=== PATIENT | female | born 1960 | race Caucasian/White ===

== ENCOUNTER → 2017-07-14 14:43 | Outpatient (POV) | payer BC, SELFPAY | PROVIDERS: Visit Provider Internal Medicine | DX: Z00.00 Encounter for general adult medical examination without abnormal findings (principal) ==

== ENCOUNTER → 2017-11-26 15:27 | Outpatient (REF) | payer BC, SELFPAY ==
[2017-11-26 19:09] LABS: Basophils # 0.1 K/mm3 (0-0.2); Basophils % 0.7 % (0.1-2.0); Eosinophils # 0.1 K/mm3 (0.0-0.4); Eosinophils % 1.9 % (0.1-12.0); Hematocrit 45.6 % (37.0-47.0); Hemoglobin 14.9 g/dL (12.2-16.2); Lymphocytes # 2.1 K/mm3 (0.7-4.5); Lymphocytes % 28.7 K/mm3 (10-50); Mean Corpuscular HGB Conc 32.6 g/dL (31.8-35.4); Mean Corpuscular Hemoglobin 30.1 pg (27.0-31.2); Mean Corpuscular Volume 92.3 fl (81-99); Mean Platelet Volume 7.7 fl (7.4-10.4); Monocytes # 0.4 K/mm3 (0.1-1.0); Monocytes % 6.1 % (1.7-9.3); Neutrophils # 4.6 K/mm3 (1.8-7.8); Neutrophils % 62.6 % (37.0-80.0); Platelet Count 254 K/mm3 (142-424); Red Blood Count 4.94 M/mm3 (4.20-5.40); Red Cell Distribution Width 12.8 % (11.5-17.5); White Blood Count 7.3 K/mm3 (4.8-10.8)
[2017-11-26 19:25] LABS: Alanine Aminotransferase 22 U/L (12-78); Albumin Level 3.9 gm/dL (3.4-5.0); Albumin/Globulin Ratio 1.3 (1.1-1.8); Alkaline Phosphatase 78 U/L (46-116); Anion Gap 13.1 mEq/L (5-15); Aspartate Amino Transferase 13 U/L (15-37); Bilirubin,Total 0.3 mg/dL (0.2-1.0); Blood Urea Nitrogen 21 mg/dL (7-18); Calcium 9.8 mg/dL (8.5-10.1); Carbon Dioxide 30 mmol/L (21.0-32.0); Chloride 105 mmol/L (98-107); Creatinine,Serum 0.99 mg/dL (0.55-1.02); Estimated Glomerular Filt Rate 58 ml/min (>60); GFR (African American) 70 ML/MIN (>60); Globulin 3.1 gm/dl (1.3-3.2); Glucose 75 mg/dL (74-106); Potassium 4.1 mmoL/L (3.5-5.1); Sodium 144 mmol/L (136-145)
[2017-11-26 19:26] LABS: C-Reactive Protein < 0.2 mg/L (0.0-0.9)
[2017-11-26 20:45] LABS: Erythrocyte Sedimentation Rate 0 mm/hr (0-30)
[2017-11-28 10:21] LABS: RA Latex Turbid. <10.0 IU/mL (0.0-13.9)
[2017-11-30 15:20] LABS: Anti-Centromere B Antibodies <0.2 AI (0.0-0.9); Anti-Jo-1 <0.2 AI (0.0-0.9); Anti-Smith Antibody 0.3 AI (0.0-0.9); Antichromatin Antibodies <0.2 AI (0.0-0.9); Antiscleroderma-70 Antibodies <0.2 AI (0.0-0.9); RNP Antibodies <0.2 AI (0.0-0.9); Sjogren's Anti-SS-A <0.2 AI (0.0-0.9); Sjogren's Anti-SS-B <0.2 AI (0.0-0.9)
[2017-11-30 17:17] LABS: Anti-DNA (DS) Ab Qn <1 IU/mL (0-9)
[2017-12-01 15:52] LABS: Anti-Cyclic Citrullinated Pept 3 units (0-19)
== END ==
LOC: LAB 15:27
PROVIDERS: PCP Physician Assistant; Visit Provider Physician Assistant
DX: M25.50 Pain in unspecified joint (principal)
CPT/HCPCS: 80053; 85025; 85651; 86140; 86200; 86225; 86235; 86431

== ENCOUNTER → 2017-12-14 14:33 | Outpatient (CLI) | payer BC, SELFPAY ==
--- NOTE | 2017-12-14 14:36 | XR_ITS ---
XR hand LT min 3V, XR hand RT min 3V HISTORY: ITS.REASON: Polyarthralgias ORDERING PHYSICIAN: CHOLE Castellano PATIENT AGE: 57 years COMPARISON: Contralateral study from today. No previous study TECHNIQUE: PA, Oblique and Lateral right and leftHand Left hand 3 view Right hand 3 view same views LEFT HAND No fracture or dislocation. No lytic or blastic change. There is normal mineralization.. Degenerative arthritic changes are seen at the DIP joints. Second & third third finger most notable. Lesser degree fourth and fifth finger. The Most evident arthritic changes seen at the DIP joint of the index and long finger finger where where the developing early hypertrophic changes dorsally most evident.. Slightly fragmented hypertrophic changes most evident at index finger and long finger.. There are also some less evident degenerative changes at PIP joints,-with most notable involvement at fifth finger. Also at the index finger there is minimally fragmented likely hypertrophic feature off proximal ulnar corner base of middle phalanx here at PIP joint index finger.. MCP joints intact. Arthritic changes with slight narrowing and hypertrophic features at IP joint of thumb. Scant hypertrophic features at the first carpal-metacarpal joint. Images are wrist including intact unremarkable. RIGHT HAND No fracture nor dislocation. . Developing degenerative osteophytic changes most evident from the posterior aspect DIP joints of the second and third finger.. At the right long finger, dystrophic & Fragmented hypertrophic changes most evident and pronounced, overlying dorsal aspect head of middle phalanx-these likely palpable overlying posteriorly/ulnar aspect DIP joint long finger.. Less evident fragmented hypertrophic features along the dorsal aspect DIP joint index finger. Only minor mild prominence hypertrophy at the dorsal aspect fourth and fifth finger. . Mild arthritic changes at PIP joint most notable at fourth and fifth finger-small old corticated hypertrophic fragment off the ulnar corner/ base of middle phalanx at each of these fingers with perhaps mild soft tissue prominence overlying over aspect of PIP joint fourth and fifth finger...... The IP joint of thumb demonstrates narrowing and sclerotic changes with irregular marginal osteophyte base both right and left hand. MCP joints intact. Only question scant arthritic changes at carpometacarpal joint. Carpals intact. --IMPRESSION..--- Developing Osteoarthritis pattern hands bilateral.: 1. Degenerative, arthritic changes most evident DIP joints bilaterally. Right hand more than left. ... RIGHT hand. Arthritic changes most evident DIP joints second & third finger. With Irregular dystrophic, hypertrophic bone seen dorsally overlying the IP joint of long finger and to lesser degree index finger. This features likely palpable particularly at the DIP joint of right long finger.. ... LEFT hand with developing similar but slight less pronounced hypertrophic osteoarthritic changes at DIP joint, most evident at index and long fingers ... Developing arthritic changes with marginal osteophyte at IP joint of thumb bilaterally also noted ... Only scant degenerative changes PIP joints 2. no erosive changes. Normal osseous relationships. Bones well mineralized
== END ==
PROVIDERS: PCP Physician Assistant; Visit Provider Physician Assistant
DX: M25.542 Pain in joints of left hand (principal); M25.541 Pain in joints of right hand
CPT/HCPCS: 73130

== ENCOUNTER → 2018-02-16 15:00 | Outpatient (POV) | payer BC, SELFPAY | PROVIDERS: Visit Provider Internal Medicine | DX: Z00.00 Encounter for general adult medical examination without abnormal findings (principal) ==

== ENCOUNTER → 2018-07-12 14:27 | Outpatient (CLI) | payer BC, SELFPAY | PROVIDERS: PCP Emergency Medicine; Visit Provider Physician Assistant | DX: R00.2 Palpitations (principal) | CPT/HCPCS: 93225; 93226 ==

== ENCOUNTER → 2018-11-05 14:15 | Outpatient (CLI) | payer BC, SELFPAY ==
--- NOTE | 2018-11-05 14:31 | CA_ITS ---
APPROVED REPORT EXAM: Comprehensive 2D, Doppler, and color-flow Echocardiogram Tetryl Blender Operator: Callie Talavera RT(R) Ht: 5 ft 4 in Wt: 140lbs BSA: 1.68 BP: 143/89 mmHg Indications: Chest Pain, Palpitations, CAD, Hypertension/HDD 2D Dimensions LVOT 1.90 cm (M/F) 1.5-2.5 M-Mode Dimensions RVDd 2.20 cm (0.9-2.6) LA Diam 2.30 cm (1.9-4.0) LVDd 5.10 cm (3.5-5.7) Ao Diam 2.60 cm (2.0-3.7) LVDs 3.80 cm (3.5-5.7) AV Cusp 1.90 cm (1.5-2.6) IVSd 0.70 cm (0.6-1.1) PWd 0.90 cm (0.6-1.1) EF (Teich) 50.00% FS 25.50% EDV (Teich) 124.00 mL ESV (Teich) 62.00 mL LV Diastology E/A Ratio 1.0 MED E' 6.24 (< 7 cm/sec) E'/MED E' Ratio 11.80 (>14) LAT E' 8.68 (<10 cm/sec) E/LAT E' Ratio 8.50 (>14) Mitral Valve MV E Max Kimani. 73.50 (40-130 cm/s) MV A Velocity 75.00 (40-130 cm/s) E/A Ratio 1.00 Tricuspid Valve TR P. Velocity 220.00 cm/s RAP Estimate 10.00 mmHg RVSP 29.00 mmHg Left Ventricle Left atrium is mildly enlarged, left ventricle is normal size, mild concentric left ventricular hypertrophy, visually estimated ejection fraction 55% with no regional wall motion abnormality. Grade 1 diastolic dysfunction seen without tissue Doppler evidence of raise left atrial pressure. Right Ventricle Right atrium and right ventricular normal size and contractility. Aortic Valve Aortic valve is minimally thickened and fibrosed, there is no aortic stenosis, there is no significant aortic insufficiency seen. Mitral Valve Mitral valve leaflets are minimally thickened, there is no mitral stenosis, there is mild mitral regurgitation. Tricuspid Valve Tricuspid valve is grossly normal, there is no tricuspid stenosis, there is mild tricuspid regurgitation. Calculated right ventricular systolic pressure 29 mmHg. Pulmonic Valve Pulmonic valve is poorly visualized. Great Vessels Aortic root is normal size. Pericardium No significant pericardial effusion noted. Conclusion 1. Mildly enlarged left atrium, normal left ventricular size, mild concentric left ventricular hypertrophy, visually estimated ejection fraction 55% with no regional wall motion abnormality, grade 1 diastolic dysfunction seen without tissue Doppler evidence of raise left atrial pressure. 2. Mild mitral and tricuspid regurgitation, calculated right ventricular systolic pressure is 29 mmHg. 3. No significant pericardial effusion noted. Electronically signed by : Higinio Murdock, 11/05/2018 15:47:35
== END ==
PROVIDERS: PCP Physician Assistant; Visit Provider Physician Assistant
DX: I11.9 Hypertensive heart disease without heart failure (principal); I25.10 Atherosclerotic heart disease of native coronary artery without angina pectoris; R00.2 Palpitations; R06.02 Shortness of breath
CPT/HCPCS: 93306

== ENCOUNTER → 2018-11-23 11:08 | Outpatient (CLI) | payer BC, SELFPAY ==
[2018-11-23 13:14] LABS: Anion Gap 11.4 mEq/L (5-15); Blood Urea Nitrogen 26 mg/dL (7-18); Calcium 10.2 mg/dL (8.5-10.1); Carbon Dioxide 30 mmol/L (21.0-32.0); Chloride 104 mmol/L (98-107); Creatinine,Serum 0.94 mg/dL (0.55-1.02); Estimated Glomerular Filt Rate 62 ml/min (>60); GFR (African American) 75 ML/MIN (>60); Glucose 87 mg/dL (74-106); Potassium 4.4 mmoL/L (3.5-5.1); Sodium 141 mmol/L (136-145)
== END ==
PROVIDERS: Visit Provider Physician Assistant
DX: I11.9 Hypertensive heart disease without heart failure (principal); I25.10 Atherosclerotic heart disease of native coronary artery without angina pectoris; M79.10 Myalgia, unspecified site; R00.2 Palpitations; R06.02 Shortness of breath; R07.9 Chest pain, unspecified; R53.83 Other fatigue
CPT/HCPCS: 36415; 80048

== ENCOUNTER → 2019-01-24 08:49 | Outpatient (CLI) | payer BC, SELFPAY ==
--- NOTE | 2019-01-24 09:04 | MM_ITS ---
PROCEDURE: MM DIG SCREENING MAMM BI W/CAD CLINICAL INDICATION: screening No personal or family history of breast cancer. The patient complains of a recent possible new area of lumpy feeling tissue upper left breast COMPARISON: MAMM-SCREENING DIRECT DIGITAL from 01/19/2008 [facility] DIGITAL MAMM-SCREEN BILATERAL from 11/20/2011 TECHNIQUE: Standard CC and MLO images were obtained. R2 CAD reviewed. FINDINGS: Scattered diffuse fibroglandular densities are seen throughout both breasts. There is a possible small area of architectural distortion upper left breast seen just beneath the marker placed on the patient's skin in this area is highlighted by CAD as well. There is a mole marker under surface of the breast approximately the 6 to 7 o'clock position. There are couple of benign-appearing microcalcifications in each breast. There no other suspicious lesion and no suspicious microcalcifications. IMPRESSION: Fibrofatty parenchyma with possible small area of architectural distortion versus summation shadow and recommend the patient return for spot compression MLO and CC views and ultrasound may be necessary as well BI-RAD Category: 0 Need Additional Imaging Evaluation FOLLOW-UP: IMM Immediate Follow-up Recommended (A letter has been sent to the patient regarding results of the study.) Dictated by: Dr. Hong Castle MD 01/26/2019 20:[address] Hong Castle MD in [place] 01/26/2019 20:00
== END ==
PROVIDERS: PCP Physician Assistant; Visit Provider Physician Assistant
DX: Z12.31 Encounter for screening mammogram for malignant neoplasm of breast (principal)
CPT/HCPCS: 77067

== ENCOUNTER → 2019-02-08 14:09 | Outpatient (CLI) | payer BC, SELFPAY ==
--- NOTE | 2019-02-08 14:10 | US_ITS ---
PROCEDURE: US BREAST LT COMPLETE CLINICAL INDICATION: abnormal mamm COMPARISON: No exams were available for comparison FINDINGS: Scanning all 4 quadrants of the breast shows rather homogeneous echogenicity consistent with primarily fatty type breast parenchyma. There is no suspicious cystic or solid mass and no findings to suggest architectural distortion. There are normal appearing nodes in the axilla. IMPRESSION: Negative ultrasound left breast Dictated by: Dr. Hong Castle MD 02/14/2019 10:[address] Hong Castle MD in [place] 02/14/2019 10:25
--- NOTE | 2019-02-08 14:10 | MM_ITS ---
PROCEDURE: MM DIG MAMM DX UNILAT LT CAD CLINICAL INDICATION: abnormal mamm COMPARISON: MAMM-SCREENING DIRECT DIGITAL from 01/19/2008 [facility]B DIGITAL MAMM-SCREEN BILATERAL from 11/20/2011 MM DIG SCREENING MAMM BI W/CAD from 01/24/2019 TECHNIQUE: Spot-compression MLO and CC views were obtained along with 90 degree lateral view. FINDINGS: The questionable area of architectural distortion appears to almost complete press out and certainly appears less worrisome on the additional views. In particular the 90 degree the lateral view shows no suspicious abnormality. Ultrasound performed same date show no abnormal cystic or solid mass and no findings to suggest architectural distortion. Recommend the patient continue with yearly screening mammography IMPRESSION: Negative problem solving views BI-RAD Category: 1 Negative FOLLOW-UP: 1YR 1 Year Follow-up (A letter has been sent to the patient regarding results of the study.) Dictated by: Dr. Hong Castle MD 02/14/2019 10:[address] Hong Castle MD in [place] 02/14/2019 10:24
== END ==
PROVIDERS: PCP Emergency Medicine; Visit Provider Physician Assistant
DX: R92.8 Other abnormal and inconclusive findings on diagnostic imaging of breast (principal)
CPT/HCPCS: 76641; 77065

== ENCOUNTER → 2019-02-14 09:52 | Outpatient (CLI) | payer OTHER, SELFPAY ==
[2019-02-14 10:13] LABS: Basophils # 0.1 K/mm3 (0-0.2); Basophils % 0.9 % (0.1-2.0); Eosinophils # 0.2 K/mm3 (0.0-0.4); Hematocrit 42.9 % (37.0-47.0); Hemoglobin 14.1 g/dL (12.2-16.2); Lymphocytes # 1.6 K/mm3 (0.7-4.5); Lymphocytes % 31.1 % (10-50); Mean Corpuscular HGB Conc 32.8 g/dL (31.8-35.4); Mean Corpuscular Hemoglobin 29.8 pg (27.0-31.2); Mean Corpuscular Volume 90.8 fl (81-99); Monocytes # 0.3 K/mm3 (0.1-1.0); Monocytes % 5.9 % (1.7-9.3); Neutrophils # 3.1 K/mm3 (1.8-7.8); Platelet Count 210 K/mm3 (142-424); Red Blood Count 4.72 M/mm3 (4.20-5.40); Red Cell Distribution Width 13.4 % (11.5-17.5); White Blood Count 5.3 K/mm3 (4.8-10.8)
[2019-02-14 10:39] LABS: Anion Gap 14.1 mEq/L (5-15); Blood Urea Nitrogen 22 mg/dL (7-18); Calcium 9.5 mg/dL (8.5-10.1); Carbon Dioxide 28 mmol/L (21.0-32.0); Chloride 103 mmol/L (98-107); Chol/HDL Ratio 3.3 (1-3.5); Cholesterol 267 mg/dL (140-200); Creatinine,Serum 0.88 mg/dL (0.55-1.02); Estimated Glomerular Filt Rate 66 ml/min (>60); GFR (African American) 80 ML/MIN (>60); Glucose 93 mg/dL (74-106); HDL Cholesterol 81 mg/dL (29-89); LDL Cholesterol 174 mg/dL (0-130); Potassium 4.1 mmoL/L (3.5-5.1); Sodium 141 mmol/L (136-145); Triglycerides 58 mg/dL (30-200); VLDL Cholesterol 12 mg/dL (0-40)
== END ==
PROVIDERS: Visit Provider Internal Medicine Cardiovascular Disease
DX: Z01.812 Encounter for preprocedural laboratory examination (principal)
CPT/HCPCS: 36415; 80048; 80061; 85025

== ENCOUNTER → 2019-02-21 13:32 | Outpatient (CLI) | payer OTHER, SELFPAY ==
[2019-02-21 13:51] LABS: C-Reactive Protein < 0.2 mg/dL (0.0-0.9)
[2019-02-21 14:13] LABS: Erythrocyte Sedimentation Rate 44 mm/hr (0-30)
[2019-02-23 07:40] LABS: Anti-Cyclic Citrullinated Pept 8 units (0-19)
== END ==
PROVIDERS: Visit Provider Physician Assistant
DX: R92.8 Other abnormal and inconclusive findings on diagnostic imaging of breast (principal); N60.19 Diffuse cystic mastopathy of unspecified breast; M25.542 Pain in joints of left hand; M25.541 Pain in joints of right hand; L81.9 Disorder of pigmentation, unspecified
CPT/HCPCS: 85651; 86140; 86200

== ENCOUNTER → 2019-11-11 13:47 | Outpatient (CLI) | payer OTHER, SELFPAY | PROVIDERS: PCP Emergency Medicine; Visit Provider Internal Medicine Cardiovascular Disease | DX: R00.2 Palpitations (principal) | CPT/HCPCS: 93270 ==

== ENCOUNTER → 2019-12-21 07:52 | Outpatient (CLI) | payer OTHER, SELFPAY ==
--- NOTE | 2019-12-21 | CA_ITS ---
APPROVED REPORT Exam: Exercise Treadmill Technologist: Torrie Ferrera Ht: 5 ft 4 in Wt: 157 lbs BSA: 1.76 m2 HR: 53 bpm BP: 158/98 mmHg Indications: Dyspnea Medical History Medications: Furosemide (LASIX),,,,, Isosorbide,,,,, Aspirin,,,,, Vitamin E,,,,, Ropinirole,,,,, Albuterol,,,,, Magnesium,,,,, BisOPROLOL,,,,, Pregabalin,,,,, Budesonide-Formoterol,,,,, Fluitcasone,,,,, Stress Test Details Test: Ridge HR Resting HR: 58 bpm Max Heart Rate (APMHR): 163 bpm Max HR Achieved: 149 bpm Target HR (85% APMHR): 138 bpm % of APMHR: 91 Recovery HR: 63 bpm BP Resting BP: 150.0/106.0 mmHg Max BP: 186.0/90.0 mmHg Recovery BP: 123.0/78.0 mmHg ECG Clinical Exercise duration: 09:49 min Highest Stage Achieved: Exercise capacity: 10.1 METs Stress ECG Conclusion Resting EKG: Sinus bradycardia, PVC Patient exercised 9:49 on Ridge Protocol. Test stopped due to shortness of air, fatigue. Symptoms: Transient aching chest pain during exercise. Sharp, stabbing, left sided chest pain lasting two minutes after exercise. Arrhythmias/Ectopy: Frequent PVC and 1 ventricular couplet during last 30 2 45 seconds of exercise. Less than 1.[address] segment depression noted from baseline EKG, excessive baseline artifact present. Conclusion: Negative GXT for ischemic EKG changes and atypical chest pain. Rest and stress echo images reported separately. Test Summary REST . . . . . . . Sitting REST 15:22 0.0 0.0 58 . 150/106 . . Stage 1 01:00 10.0 1.7 73 . . . . Stage 1 02:00 10.0 1.7 84 . . . . Stage 1 03:00 10.0 1.7 89 . 152/ 90 . . Stage 2 01:00 12.0 2.5 96 . . . . Stage 2 02:00 12.0 2.5 103 . . . . Stage 2 . . . . . . . Shortness of Breath Stage 2 03:00 12.0 2.5 105 . 164/ 88 . . Stage 3 01:00 14.0 3.4 115 . . . . Stage 3 02:00 14.0 3.4 128 . . . . Stage 3 03:00 14.0 3.4 134 . 186/ 90 . . Stage 4 00:49 16.0 0.0 149 . . . Stop exercise at 09:49 RECOVERY 01:00 0.0 0.0 101 . . . . RECOVERY 02:00 0.0 0.0 79 . . . . RECOVERY . . . . . . . Chest pain RECOVERY 03:00 0.0 0.0 80 . . . . RECOVERY 04:00 0.0 0.0 66 . 139/ 79 . . RECOVERY 05:00 0.0 0.0 63 . 139/ 79 . . RECOVERY 06:00 0.0 0.0 66 . 132/ 81 . . RECOVERY 07:00 0.0 0.0 63 . 132/ 81 . . RECOVERY 08:00 0.0 0.0 64 . 123/ 78 . . Electronically signed by : Higinio Murdock, 12/22/2019 11:21:17
--- NOTE | 2019-12-21 | XR_ITS ---
PROCEDURE: XR HAND LT MIN 3V CLINICAL INDICATION: OSTEOARTHRITIS PAIN IN USPECIFIED JOINT COMPARISON: CR [id number] XR hand LT min 3V from 12/14/2017 CR [id number] XR hand RT min 3V from 12/14/2017 FINDINGS: No fracture or dislocation. No lytic or blastic change. There is normal mineralization. Periarticular calcifications once again noted at the interphalangeal joint of the thumb, DIP PIP 2nd digit, DIP 3rd digit, DIP 4th and 5th digits. No bony erosive process. The joint spaces are well preserved. Mild osteoarthritis noted at the 1st metacarpal-carpal joint. Other findings:None. IMPRESSION: No acute finding. Mild degenerative changes as described Dictated by: González Pyle MD 12/21/2019 16:02 González Pyle MD in [place] 12/21/2019 16:02
--- NOTE | 2019-12-21 | XR_ITS ---
PROCEDURE: XR FOOT LT MIN 3V CLINICAL INDICATION: OSTEOARTHRITIS PAIN IN USPECIFIED JOINT COMPARISON: No exams were available for comparison FINDINGS: No fracture or dislocation. No lytic or blastic change. There is normal mineralization. The joint spaces are well-preserved. No significant degenerative/arthritic changes. No erosive changes evident. Other findings:None. IMPRESSION: No acute findings. Dictated by: González Pyle MD 12/21/2019 15:59 González Pyle MD in [place] 12/21/2019 15:59
--- NOTE | 2019-12-21 | XR_ITS ---
PROCEDURE: XR FOOT RT MIN 3V CLINICAL INDICATION: OSTEOARTHRITIS PAIN IN USPECIFIED JOINT COMPARISON: No exams were available for comparison FINDINGS: No fracture or dislocation. No lytic or blastic change. There is normal mineralization. The joint spaces are well-preserved. No significant degenerative/arthritic changes. No erosive changes evident. Other findings:None. IMPRESSION: No acute findings. Dictated by: González Pyle MD 12/21/2019 16:00 González Pyle MD in [place] 12/21/2019 16:00
--- NOTE | 2019-12-21 | XR_ITS ---
PROCEDURE: XR HAND RT MIN 3V CLINICAL INDICATION: OSTEOARTHRITIS PAIN IN USPECIFIED JOINT COMPARISON: CR [id number] XR hand LT min 3V from 12/14/2017 CR [id number] XR hand RT min 3V from 12/14/2017 FINDINGS: No fracture or dislocation. No lytic or blastic change. There is normal mineralization. The joint spaces are well preserved. Periarticular calcifications are present at the interphalangeal joint of the thumb, DIP and PIP 2nd digit, DIP PIP 3rd digit, PIP 4th digit, PIP 5th digit. Osteoarthritic changes are present at the DIP of the 2nd 3rd and 4th digit. Other findings:None. IMPRESSION: Osteoarthritic change, no acute finding with no significant change Dictated by: González Pyle MD 12/21/2019 16:01 González Pyle MD in [place] 12/21/2019 16:01
--- NOTE | 2019-12-21 07:53 | CA_ITS ---
APPROVED REPORT EXAM: Comprehensive 2D, Doppler, and color-flow Echocardiogram Supervisor [employer] Products: Callie Talavera, RT(R) Ht: 5 ft 4 in Wt: 157lbs BSA: 1.76 BP: 132/89 mmHg Indications: SOA, CP, CAD, PHTN, Palpitations, HTN, ordered as Definity echo as well as a definity stress echo Echo Enhancing Agent Indication: Endocardial border delineation Agent(s) / Amount(s) Used: Definity 2 cc 2D Dimensions LVOT 1.88 cm (M/F) 1.5-2.5 M-Mode Dimensions RVDd 2.15 cm (0.9-2.6) LA Diam 2.02 cm (1.9-4.0) LVDd 5.23 cm (3.5-5.7) Ao Diam 2.40 cm (2.0-3.7) LVDs 3.69 cm (3.5-5.7) IVSd 0.60 cm (0.6-1.1) PWd 0.70 cm (0.6-1.1) EF (Teich) 55.90% FS 29.40% EDV (Teich) 131.20 mL ESV (Teich) 57.80 mL LV Diastology E Decel Time 150.00 (160-240 msec) E/A Ratio 1.1 MED E' 8.90 (< 7 cm/sec) E'/MED E' Ratio 10.43 (>14) LAT E' 11.60 (<10 cm/sec) E/LAT E' Ratio 8.00 (>14) Mitral Valve MV E Max Kimani. 93.00 (40-130 cm/s) MV A Velocity 81.00 (40-130 cm/s) E/A Ratio 1.15 MV Decel. Time 150.00 (160-240 ms) MV PHT 44.00 ms Tricuspid Valve TR P. Velocity 243.00 cm/s RAP Estimate 15.00 mmHg RVSP 38.60 mmHg Left Ventricle Left atrium is normal size, left ventricle is normal size, left ventricle wall thickness is upper limit of the normal, there is preserved left ventricular systolic function, visually estimated ejection fraction 55% with no regional wall motion abnormality, Definity contrast was utilized to delineate the endocardial surface, there is no left ventricular thrombus seen. Diastolic parameters are within normal range. Right Ventricle Right atrium and right ventricle are normal size and contractility. Aortic Valve Aortic valve is minimally thickened and fibrosed, there is no aortic stenosis or aortic insufficiency. Mitral Valve Mitral valve is grossly normal, there is trace mitral regurgitation. Tricuspid Valve Tricuspid valve is grossly normal, there is trace tricuspid regurgitation, calculated right ventricular systolic pressure 38 mmHg. Pulmonic Valve Pulmonic valve is poorly visualized. Great Vessels Aortic root is normal size. Pericardium No significant pericardial effusion noted. Conclusion 1. Normal left ventricular size, preserved left ventricular systolic function, visually estimated ejection fraction 55% with no regional wall motion abnormality, diastolic parameters are within normal range, Definity contrast was utilized to delineate the endocardial surfaces, there is no left ventricular thrombus seen. 2. Trace mitral and tricuspid regurgitation, calculated right ventricular systolic pressure is 38 mmHg. 3. No significant pericardial effusion noted. Electronically signed by : Higinio Murdock, 12/22/2019 11:28:06
--- NOTE | 2019-12-21 07:53 | CA_ITS ---
APPROVED REPORT EXAM: Comprehensive 2D, Doppler, and color-flow Echocardiogram Choke Reamer: Callie Talavera RT(R) Ht: 5 ft 4 in Wt: 157lbs BSA: 1.76 BP: 158/108 mmHg Indications: SOA, CP, CAD, PHTN, palpitations, HTN, Echo Enhancing Agent Indication: Endocardial border delineation Agent(s) / Amount(s) Used: Definity 2 cc Echo Procedure The patient underwent an Exercise Stress Test using . Blood pressure, heart rate, and EKG were monitored. An Echocardiogram was performed by dental equipment technician in four stages in quad fashion. At peak stress, four selected images were obtained and placed side by side with resting images for comparison. Stress Test Details HR Max Heart Rate (APMHR): 163 bpm Target HR (85% APMHR): 138 bpm BP ECG Conclusion 1. Patient exercised on Ridge protocol achieved 10.1 mets of workload on treadmill, patient developed transient atypical chest pain, there was no EKG changes. 2. Normal left ventricular size and function at rest with no regional wall motion abnormality, with exercise there is increase in contractility of all the segments of the myocardium with hyperdynamic left ventricular systolic response, no obvious segmental wall motion abnormality to suggest provokable ischemia or underlying ischemic heart disease. Electronically signed by : Higinio Murdock, 12/22/2019 11:30:08
== END ==
PROVIDERS: PCP Emergency Medicine; Visit Provider Internal Medicine Cardiovascular Disease
DX: R06.02 Shortness of breath (principal); I11.9 Hypertensive heart disease without heart failure; I20.8 Other forms of angina pectoris; I25.10 Atherosclerotic heart disease of native coronary artery without angina pectoris; I27.20 Pulmonary hypertension, unspecified; Q24.5 Malformation of coronary vessels; R00.2 Palpitations; R53.83 Other fatigue
CPT/HCPCS: 73130; 73630; 93017; 93306; 93350; Q9957

== ENCOUNTER → 2019-12-29 10:53 | Outpatient (CLI) | payer OTHER, SELFPAY ==
[2019-12-29 12:09] LABS: Alanine Aminotransferase 15 U/L (12-78); Albumin Level 4.6 g/dl (3.5-5.0); Alkaline Phosphatase 76 U/L (38-126); Aspartate Amino Transferase 25 U/L (14-36); Bilirubin,Direct 0.1 mg/dl (0.0-0.4); Bilirubin,Indirect 0.4 mg/dL (0.0-0.9); Bilirubin,Total 0.5 mg/dl (0.2-1.3); Bilirubin,Unconjugated 0.4 mg/dL (0.0-1.1); Cholesterol 249 mg/dl (140-200); Total Protein,Serum 7.3 g/dl (6.3-8.2); Triglycerides 110 mg/dl (30-150); VLDL Cholesterol 22 mg/dL (0-40)
[2019-12-29 12:10] LABS: Chol/HDL Ratio 3.2 (1-3.5); HDL Cholesterol 77 mg/dl (40-60)
[2019-12-29 12:20] LABS: Direct LDL Cholesterol 129.16 mg/dL (100-129)
== END ==
PROVIDERS: Visit Provider Internal Medicine Cardiovascular Disease
DX: E78.5 Hyperlipidemia, unspecified (principal); I11.9 Hypertensive heart disease without heart failure; I25.10 Atherosclerotic heart disease of native coronary artery without angina pectoris; I27.20 Pulmonary hypertension, unspecified; Q24.5 Malformation of coronary vessels; R00.2 Palpitations; R06.02 Shortness of breath; R53.83 Other fatigue
CPT/HCPCS: 36415; 80061; 80076

== ENCOUNTER → 2020-01-27 10:56 | Outpatient (CLI) | payer OTHER, SELFPAY ==
--- NOTE | 2020-01-27 10:56 | MM_ITS ---
PROCEDURE: MM DIG SCREENING MAMM BI W/CAD Referring Doctor: Umm Patiño Patient Age:59Y CLINICAL INDICATION: screening. no hormones, no new complaints patient has had previous dermis/skin cancer . noncontributory family history. COMPARISON: MG MAMM-SCREENING DIRECT DIGITAL from 01/19/2008 MG DMSB DIGITAL MAMM-SCREEN BILATERAL from 11/20/2011 MG MM DIG SCREENING MAMM BI W/CAD from 01/24/2019 MG MM DIG MAMM DX UNILAT LT CAD from 02/08/2019 TECHNIQUE: Standard CC and MLO images were obtained. R2 CAD reviewed. Bilateral digital breast tomosynthesis included. FINDINGS: moderate breast density but stable overall architecture with no new dominant or suspicious mass but no suspicious calcifications. cad highlights no areas of significant concern. left breast.--no new findings of significant concern. subtle asymmetry architecture towards upper-outer quadrant left breast appears stable and similar to studies dating back to 2011. no new areas of concern right breast-no new findings of concern. bilateral follow-up 1 year recommended. IMPRESSION: . STABLE BILATERAL MAMMOGRAM. NO NEW AREAS OF CONCERN . BILATERAL FOLLOW-UP 1 YEAR RECOMMENDED AND WOULD BE ENCOURAGED/EMPHASIZED FOR ONGOING FOLLOW-UP BI-RAD Category: 2 Benign Finding(s) FOLLOW-UP: 1YR 1 Year Follow-up (A letter has been sent to the patient regarding results of the study.) Dictated by: Johnnie Jimenez MD 01/29/2020 22:36 Johnnie Jimenez MD in [place] 01/29/2020 22:36
== END ==
PROVIDERS: PCP Emergency Medicine; Visit Provider Physician Assistant
DX: Z12.31 Encounter for screening mammogram for malignant neoplasm of breast (principal)
CPT/HCPCS: 77063; 77067

== ENCOUNTER → 2020-07-12 11:25 | Outpatient (CLI) | payer OTHER, SELFPAY ==
[2020-07-12 11:53] LABS: Basophils # 0.1 K/mm3 (0-0.2); Basophils % 0.9 % (0.1-2.0); Eosinophils # 0.1 K/mm3 (0.0-0.4); Eosinophils % 1.8 % (0.1-12.0); Hematocrit 44.4 % (37.0-47.0); Hemoglobin 14.8 g/dL (12.2-16.2); Lymphocytes # 2.2 K/mm3 (0.7-4.5); Lymphocytes % 29.8 % (10-50); Mean Corpuscular HGB Conc 33.4 g/dL (31.8-35.4); Mean Corpuscular Hemoglobin 29.3 pg (27.0-31.2); Mean Corpuscular Volume 87.8 fl (81-99); Mean Platelet Volume 7.3 fl (7.4-10.4); Monocytes # 0.3 K/mm3 (0.1-1.0); Monocytes % 4.5 % (1.7-9.3); Neutrophils # 4.5 K/mm3 (1.8-7.8); Neutrophils % 62.9 % (37.0-80.0); Platelet Count 284 K/mm3 (142-424); Red Blood Count 5.06 M/mm3 (4.20-5.40); Red Cell Distribution Width 13.2 % (11.5-17.5); White Blood Count 7.2 K/mm3 (4.8-10.8)
[2020-07-12 13:43] LABS: Alanine Aminotransferase 22 U/L (12-78); Albumin Level 4.7 g/dl (3.5-5.0); Alkaline Phosphatase 87 U/L (38-126); Anion Gap 13.3 mEq/L (5-15); Aspartate Amino Transferase 31 U/L (14-36); Bilirubin,Direct 0.4 mg/dl (0.0-0.4); Bilirubin,Indirect 0.3 mg/dL (0.0-0.9); Bilirubin,Total 0.7 mg/dl (0.2-1.3); Bilirubin,Unconjugated 0.3 mg/dL (0.0-1.1); Blood Urea Nitrogen 22 mg/dl (7-17); Calcium 10.6 mg/dl (8.4-10.2); Carbon Dioxide 27 mmol/L (22.0-30.0); Chloride 101 mmol/L (98-107); Chol/HDL Ratio 3.3 (1-3.5); Cholesterol 270 mg/dl (140-200); Estimated Glomerular Filt Rate 57 ml/min (>60); GFR (African American) 69 ML/MIN (>60); Glucose 79 mg/dl (74-100); HDL Cholesterol 82 mg/dl (40-60); Magnesium 2.1 mg/dl (1.6-2.3); Potassium 4.3 mmoL/L (3.5-5.1); Sodium 137 mmol/L (136-145); Total Protein,Serum 7.4 g/dl (6.3-8.2); Triglycerides 138 mg/dl (30-150); VLDL Cholesterol 28 mg/dL (0-40)
[2020-07-12 13:53] LABS: Direct LDL Cholesterol 143.39 mg/dL (100-129)
== END ==
LOC: LAB 11:26
PROVIDERS: Visit Provider Physician Assistant
DX: R06.02 Shortness of breath (principal); R00.2 Palpitations; I11.9 Hypertensive heart disease without heart failure; I25.10 Atherosclerotic heart disease of native coronary artery without angina pectoris; I27.20 Pulmonary hypertension, unspecified; Q24.5 Malformation of coronary vessels; R53.83 Other fatigue; E78.5 Hyperlipidemia, unspecified; Z78.9 Other specified health status
CPT/HCPCS: 36415; 80048; 80061; 80076; 83735; 85025

== ENCOUNTER → 2020-08-24 10:35 | Outpatient (CLI) | payer OTHER, SELFPAY ==
--- NOTE | 2020-08-24 10:40 | US_ITS ---
APPROVED REPORT Exam Type: Ankle to Brachial Index Biometry Teacher: RT Arnie(R) Indications Claudication: Right Rest Pain: Right PAD Risk Factors Hyperlipidemia Pressures/Indices Right Indices Left Indices Brachial 140.00 mmHg Brachial 148.00 mmHg Low Thigh 166.00 mmHg 1.12 Low Thigh 144.00 mmHg 0.97 Calf 176.00 mmHg 1.19 Calf 143.00 mmHg 0.97 Ankle(PT) 174.00 mmHg 1.18 Ankle(PT) 127.00 mmHg 0.86 Ankle(DP) 165.00 mmHg 1.11 Ankle(DP) 170.00 mmHg 1.15 Digit 113.00 mmHg 0.76 Digit 87.00 mmHg 0.59 Findings RT QUE=1.18 LT QUE=1.15 RT TBI=0.76 LT TBI=0.59 Normal waveforms Diminished pulses on the left Conclusion RT QUE=1.18 LT QUE=1.15 RT TBI=0.76 LT TBI=0.59 Normal waveforms Diminished pulses on the left QUE's normal Electronically signed by : González Pyle MD 08/24/2020 16:25:10
== END ==
LOC: RT 10:36
PROVIDERS: PCP Emergency Medicine; Visit Provider Physician Assistant
DX: I83.813 Varicose veins of bilateral lower extremities with pain (principal)
CPT/HCPCS: 93923

== ENCOUNTER → 2020-09-05 10:10 | Outpatient (CLI) | payer OTHER, SELFPAY ==
--- NOTE | 2020-09-05 10:11 | CA_ITS ---
APPROVED REPORT Bilateral Lower Extremity Venous Study for DVT. Jailkeeper: JARRETT Eden Lower Extremity Pain: Bilateral Varicose Veins painful varicose veins of legs that has worsened over the course of 1 year Vein Imaging CFV (R): compressive, spontaneous, phasic, augmentation SFJ (R): compressive, spontaneous, phasic, augmentation FEM (R): compressive, spontaneous, phasic, augmentation POP (R): compressive, spontaneous, phasic, augmentation DFV (R): compressive, spontaneous, phasic, augmentation PTV (R): compressive, spontaneous, phasic, augmentation GSV (R): compressive, spontaneous, phasic, augmentation Peroneals (R):compressive, spontaneous, phasic, augmentation GAS (R): compressive, spontaneous, phasic, augmentation CFV (L): compressive, spontaneous, phasic, augmentation SFJ (L): compressive, spontaneous, phasic, augmentation FEM (L): compressive, spontaneous, phasic, augmentation POP (L): compressive, spontaneous, phasic, augmentation DFV (L): compressive, spontaneous, phasic, augmentation PTV (L): compressive, spontaneous, phasic, augmentation GSV (L): compressive, spontaneous, phasic, augmentation Peroneals (L):compressive, spontaneous, phasic, augmentation GAS (L): compressive, spontaneous, phasic, augmentation Findings Study shows no evidence of DVT or SVT in the bilateral lower extremities. Conclusion Study shows no evidence of DVT or SVT in the bilateral lower extremities. Electronically signed by : González Pyle MD 09/05/2020 16:04:57
== END ==
LOC: RT 10:11
PROVIDERS: PCP Emergency Medicine; Visit Provider Physician Assistant
DX: I83.813 Varicose veins of bilateral lower extremities with pain (principal)
CPT/HCPCS: 93970

== ENCOUNTER → 2021-01-30 10:46 | Outpatient (CLI) | payer OTHER, SELFPAY ==
--- NOTE | 2021-01-30 10:46 | MM_ITS ---
PROCEDURE INFORMATION: Exam: MG Bilateral Screening 3D Mammography Exam date and time: 01/30/2021 10:46 AM Age: 60 years old Clinical indication: Encounter for screening mammogram for malignant neoplasm of breast TECHNIQUE: Imaging protocol: Bilateral screening tomosynthesis and 2D mammography including computer-aided detection (CAD) when performed. COMPARISON: 1. MG MM DIG SCREENING MAMM BI W/CAD 01/27/2020 10:56 AM 2. MG MM DIG MAMM DX UNILAT LT CAD 02/08/2019 2:50 PM 3. MG MM DIG SCREENING MAMM BI W/CAD 01/24/2019 9:15 AM FINDINGS: MAMMOGRAPHY: Breast composition: There are scattered areas of fibroglandular density. Mass: No suspicious masses. Architectural distortion: No suspicious distortion. Calcifications: No suspicious calcifications. Asymmetric density: None. Skin thickening: None. Axillary adenopathy: None. IMPRESSION: No mammographic evidence of malignancy. Annual screening is recommended unless otherwise clinically indicated. ASSESSMENT: BI-RADS Category 1: Negative
[2021-01-30 12:02] LABS: Chloride 99 mmol/L (98-107)
[2021-01-30 12:03] LABS: Potassium 4.3 mmoL/L (3.5-5.1); Sodium 135 mmol/L (136-145)
[2021-01-30 12:05] LABS: Alanine Aminotransferase 21 U/L (12-78); Anion Gap 10.3 mEq/L (5-15); Aspartate Amino Transferase 32 U/L (14-36); Bilirubin,Unconjugated 0.4 mg/dL (0.0-1.1); Blood Urea Nitrogen 23 mg/dl (7-17); Carbon Dioxide 30 mmol/L (22.0-30.0); Estimated Glomerular Filt Rate 74 ml/min (>60); GFR (African American) 89 ML/MIN (>60)
[2021-01-30 12:06] LABS: Albumin Level 4.4 g/dl (3.5-5.0); Alkaline Phosphatase 68 U/L (38-126); Bilirubin,Indirect 0.4 mg/dL (0.0-0.9); Bilirubin,Total 0.4 mg/dl (0.2-1.3); Calcium 10.8 mg/dl (8.4-10.2); Chol/HDL Ratio 3.2 (1-3.5); Cholesterol 223 mg/dl (140-200); Glucose 96 mg/dl (74-100); HDL Cholesterol 69 mg/dl (40-60); Triglycerides 134 mg/dl (30-150); VLDL Cholesterol 27 mg/dL (0-40)
[2021-01-30 12:27] LABS: Direct LDL Cholesterol 122.01 mg/dL (100-129)
== END ==
LOC: RAD 10:46
PROVIDERS: Physician Assistant; PCP Emergency Medicine; Visit Provider Physician Assistant
DX: Z12.31 Encounter for screening mammogram for malignant neoplasm of breast (principal); R00.2 Palpitations; I11.9 Hypertensive heart disease without heart failure; Z79.899 Other long term (current) drug therapy
CPT/HCPCS: 36415; 77063; 77067; 80048; 80061; 80076

== ENCOUNTER → 2021-01-30 11:09 | Outpatient (CLI) | payer OTHER, SELFPAY | PROVIDERS: Visit Provider Physician Assistant | DX: I25.10 Atherosclerotic heart disease of native coronary artery without angina pectoris (principal) | CPT/HCPCS: 36415; 80048; 80061; 80076 ==

== ENCOUNTER → 2021-02-06 09:04 | Outpatient (CLI) | payer OTHER, SELFPAY ==
[2021-02-06 09:37] LABS: Basophils # 0.1 K/mm3 (0-0.2); Basophils % 1.5 % (0.1-2.0); Eosinophils # 0.2 K/mm3 (0.0-0.4); Eosinophils % 2.4 % (0.1-12.0); Hematocrit 43.2 % (37.0-47.0); Hemoglobin 13.7 g/dL (12.2-16.2); Lymphocytes # 2.1 K/mm3 (0.7-4.5); Lymphocytes % 32.7 % (10-50); Mean Corpuscular HGB Conc 31.7 g/dL (31.8-35.4); Mean Corpuscular Hemoglobin 29.4 pg (27.0-31.2); Mean Corpuscular Volume 92.7 fl (81-99); Mean Platelet Volume 8.1 fl (7.4-10.4); Monocytes # 0.3 K/mm3 (0.1-1.0); Neutrophils # 3.7 K/mm3 (1.8-7.8); Neutrophils % 58.5 % (37.0-80.0); Platelet Count 249 K/mm3 (142-424); Red Blood Count 4.66 M/mm3 (4.20-5.40); Red Cell Distribution Width 13.4 % (11.5-17.5); White Blood Count 6.3 K/mm3 (4.8-10.8)
[2021-02-06 10:35] LABS: Intact Parathyroid Hormone 42.8 pg/mL (7.5-53.5)
[2021-02-06 10:42] LABS: Free T4 (Free Thyroxine) 0.86 ng/dl (0.78-2.19); Free Thyroxine Index 2.1 ug/dL (5.93-13.13); Triiodothryronine (T3) Uptake 35 % (23.5-40.5)
[2021-02-06 10:54] LABS: Thyroid Stimulating Hormone 1.48 uIU/mL (0.465-4.68)
[2021-02-06 10:55] LABS: Thyroid Stimulating Hormone 1.52 uIU/mL (0.465-4.68)
== END ==
LOC: LAB 09:04
PROVIDERS: Visit Provider Physician Assistant
DX: R06.02 Shortness of breath (principal); R07.9 Chest pain, unspecified; R00.2 Palpitations; I20.1 Angina pectoris with documented spasm; I27.20 Pulmonary hypertension, unspecified; Q24.5 Malformation of coronary vessels; I11.9 Hypertensive heart disease without heart failure
CPT/HCPCS: 36415; 83970; 84436; 84439; 84443; 84479; 85025

== ENCOUNTER → 2021-08-23 09:17 | Outpatient (CLI) | payer OTHER, SELFPAY ==
[2021-08-23 09:43] LABS: Basophils # 0.1 K/mm3 (0-0.2); Basophils % 1.5 % (0.1-2.0); Eosinophils # 0.2 K/mm3 (0.0-0.4); Eosinophils % 4.1 % (0.1-12.0); Hematocrit 43.8 % (37.0-47.0); Hemoglobin 13.9 g/dL (12.2-16.2); Lymphocytes # 1.6 K/mm3 (0.7-4.5); Lymphocytes % 27.2 % (10-50); Mean Corpuscular HGB Conc 31.7 g/dL (31.8-35.4); Mean Corpuscular Hemoglobin 29.7 pg (27.0-31.2); Mean Corpuscular Volume 93.7 fl (81-99); Mean Platelet Volume 7.5 fl (7.4-10.4); Monocytes # 0.4 K/mm3 (0.1-1.0); Monocytes % 6.4 % (1.7-9.3); Neutrophils # 3.6 K/mm3 (1.8-7.8); Neutrophils % 60.8 % (37.0-80.0); Platelet Count 249 K/mm3 (142-424); Red Blood Count 4.67 M/mm3 (4.20-5.40); Red Cell Distribution Width 13.8 % (11.5-17.5); White Blood Count 5.8 K/mm3 (4.8-10.8)
[2021-08-23 10:07] LABS: Chloride 104 mmol/L (98-107)
[2021-08-23 10:08] LABS: Potassium 4.3 mmoL/L (3.5-5.1); Sodium 137 mmol/L (136-145)
[2021-08-23 10:10] LABS: Blood Urea Nitrogen 22 mg/dl (7-17); Estimated Glomerular Filt Rate 64 ml/min (>60); GFR (African American) 78 ML/MIN (>60)
[2021-08-23 10:11] LABS: Anion Gap 9.3 mEq/L (5-15); Calcium 10.2 mg/dl (8.4-10.2); Carbon Dioxide 28 mmol/L (22.0-30.0); Glucose 97 mg/dl (74-100)
[2021-08-23 10:31] LABS: Triiodothryronine (T3) Uptake 39 % (23.5-40.5)
[2021-08-23 10:32] LABS: T4 (Thyroxine) 7.7 ug/dl (5.53-11.0)
[2021-08-23 10:46] LABS: Thyroid Stimulating Hormone 2.48 uIU/mL (0.465-4.68)
[2021-08-27 15:09] LABS: D001-IgE D pteronyssinus <0.10 kU/L (Class 0); D002-IgE D farinae <0.10 kU/L (Class 0); E001-IgE Cat Dander <0.10 kU/L (Class 0); E005-IgE Dog Dander <0.10 kU/L (Class 0); E072-IgE Mouse Urine <0.10 kU/L (Class 0); G002-IgE Bermuda Grass 0.17 kU/L (Class 0/I); G006-IgE Timothy Grass 0.22 kU/L (Class 0/I); I006-IgE Cockroach, German 0.11 kU/L (Class 0/I); Immunoglobulin E, Total 105 IU/mL (6-495); M001-IgE Penicillium chrysogen <0.10 kU/L (Class 0); M002-IgE Cladosporium herbarum <0.10 kU/L (Class 0); M003-IgE Aspergillus fumigatus <0.10 kU/L (Class 0); M006-IgE Alternaria alternata <0.10 kU/L (Class 0); T001-IgE Maple/Box Elder 0.18 kU/L (Class 0/I); T003-IgE Common Silver Birch 0.11 kU/L (Class 0/I); T006-IgE Cedar, Mountain 0.13 kU/L (Class 0/I); T008-IgE Elm, American 0.16 kU/L (Class 0/I); T010-IgE Walnut 0.19 kU/L (Class 0/I); T011-IgE Maple Leaf Sycamore 0.19 kU/L (Class 0/I); T014-IgE Cottonwood 0.16 kU/L (Class 0/I); T015-IgE Ash, White 0.23 kU/L (Class 0/I); T022-IgE Pecan, Hickory 0.15 kU/L (Class 0/I); T070-IgE White Mulberry <0.10 kU/L (Class 0); W001-IgE Ragweed, Short 0.17 kU/L (Class 0/I); W014-IgE Pigweed, Common 0.14 kU/L (Class 0/I); W018-IgE Sheep Sorrel 0.23 kU/L (Class 0/I)
== END ==
PROVIDERS: Otolaryngology; PCP Emergency Medicine; Visit Provider Physician Assistant
DX: R06.02 Shortness of breath (principal); J30.9 Allergic rhinitis, unspecified; I10 Essential (primary) hypertension; E03.9 Hypothyroidism, unspecified; Z51.81 Encounter for therapeutic drug level monitoring; Z79.899 Other long term (current) drug therapy
CPT/HCPCS: 36415; 80048; 82785; 84436; 84443; 84479; 85025; 86003

== ENCOUNTER → 2021-10-11 14:53 | Outpatient (CLI) | payer OTHER, SELFPAY ==
--- NOTE | 2021-10-11 14:54 | CT_ITS ---
FINAL REPORT CLINICAL HISTORY: lung cancer screening former smoker smoked 5-6 years 1/4 pack a day COMPARISON: Chest CT dated December 31, 2016 FINDINGS: Low-Dose Chest CT Axial images were obtained from the lung apex to the mid abdomen by computed tomography. Low-dose protocol was utilized. CTDI vol (mGy): 2.7 DLP (mGy-cm): 86.2 There is no axillary adenopathy. There is no hilar or mediastinal adenopathy. The heart is proper size. There is no pericardial or pleural effusion. Limited images of the upper abdomen are unremarkable. Lung window images demonstrate mild atelectasis or scarring in the lung bases. There is no suspicious infiltrate or nodule. IMPRESSION: Lung RADS category 1. Recommend 12 month follow-up low-dose chest CT. Reviewed, Interpreted and Dictated by Trell Martinez III, MD Transcribed by Janell Agudelo Authenticated and [facility]
== END ==
LOC: RAD 14:54
PROVIDERS: PCP Physician Assistant; Visit Provider Physician Assistant
DX: Z87.891 Personal history of nicotine dependence (principal); Z12.2 Encounter for screening for malignant neoplasm of respiratory organs
CPT/HCPCS: 71271

== ENCOUNTER → 2021-11-05 09:15 | Outpatient (CLI) | payer OTHER, SELFPAY | PROVIDERS: PCP Physician Assistant; Visit Provider Internal Medicine Gastroenterology | DX: Z01.812 Encounter for preprocedural laboratory examination (principal); Z20.822 Contact with and (suspected) exposure to COVID-19; Z13.810 Encounter for screening for upper gastrointestinal disorder; R13.10 Dysphagia, unspecified | CPT/HCPCS: C9803; U0003; U0005 ==

== ENCOUNTER 2021-11-07 09:23 | Day surgery (SDC) | payer OTHER, SELFPAY ==
[2021-11-04 09:11] VITALS: BMI 24.7
[2021-11-07 09:40] VITALS: BP 157/94; PULSE 58; RESP 18; TEMP 36.1; O2SAT 97
--- NOTE | 2021-11-07 09:55 | P.PN_ITS ---
PFSH PFSH Medical History Chest pain Fibrocystic breast HHD (hypertensive heart disease) HLD (hyperlipidemia) Menopause Skin cancer SOB (shortness of breath) Statin intolerance Surgical History History of History of radiofrequency ablation procedure for cardiac arrhythmia Family History Father FH: esophageal cancer Social History Smoking Status: Former smoker how long ago did patient quit smokin years second hand exposure: No alcohol intake: never counseling given: No substance use type: denies use current occupational status: employed and unemployed Travel in the last 8 weeks: None household members: spouse housing: house lives independently: No marital status: education level: high school current occupational exposures/hazards: No do you feel safe at home: Yes victim of physical abuse: No victim of emotional abuse: No victim of sexual abuse: No would you like helpful sources: No [facility] Anesthesia Checklist Patient Identification Patient Identification: Arm Band and Verbal (Name & ) Structural Data Admitted From: Home Planned Operative Procedure/s: EGD Verified Documents: Surgical Consent NPO Status Verified Time NPO: 00:00 Airway Assessment C-Spine Mobility Assessed: Yes TMJ Mobility Assessed: Yes Dentition: Good Dentition Neurological Assessment Level of Consciousness: Awake, Alert and Appropriate Anesthesia Plan Anesthesia Risk discussed: Yes ASA Class: III Anesthesia Type: MAC
[2021-11-07 10:01] VITALS: O2SAT 97
--- NOTE | 2021-11-07 10:17 | HMH.SCOPE ---
Procedure: Date: 11/07/21 Patient Date of :: 1960 Procedure Performed:: EGD with dilation Indications:: Dysphagia Performing Provider:: Antonio Ortega MD Referring Provider:: Umm love Sedation:: Propofol Procedure:: The gastroscope was gently passed through the incisoral orifice into the oral cavity and under direct visualization the esophagus was intubated. The endoscope was passed down the esophagus, through the stomach, and into the duodenum. Color, texture, mucosa, and anatomy of the esophagus, stomach, and duodenum were carefully examined with the scope. Findings:: Oropharynx: normal Esophagus: normal, no obstruction noted. Emperic dilation therapy performed with 58F bougie dilator. EG Junction: intact at 40 cm Cardia: normal Fundus: normal Body: normal Antrum: normal Duodenal bulb: normal Duodenum (second and third portion): normal Recommendations:: Repeat dilation in about THREE years or so, sooner if clinically indicated Complications:: None Estimated blood obtained (mL): 0
[2021-11-07 10:18] VITALS: BP 125/83; PULSE 58; RESP 15; TEMP 36.7; O2SAT 97
[2021-11-07 10:28] VITALS: BP 119/80; PULSE 53; RESP 17; O2SAT 99
[2021-11-07 10:38] VITALS: BP 112/78; PULSE 54; RESP 17; O2SAT 99
[2021-11-07 10:48] VITALS: BP 124/93; PULSE 59; RESP 17; O2SAT 99
== END 2021-11-07 10:50 | disposition home or self-care (01) ==
PROVIDERS: PCP Physician Assistant; Visit Provider Internal Medicine Gastroenterology
PROC: 0DJ08ZZ Inspection of Upper Intestinal Tract, Via Natural or Artificial Opening Endoscopic (ICD-10-PCS; CPT 43235; principal; 2021-11-07 10:30)
DX: R13.10 Dysphagia, unspecified (principal); Z79.899 Other long term (current) drug therapy
CPT/HCPCS: 43248

== ENCOUNTER 2021-11-23 18:14 | Emergency (ER) | payer OTHER, SELFPAY ==
[2021-11-23 18:17] VITALS: BP 134/92; PULSE 59; RESP 18; TEMP 36.9; O2SAT 100; BMI 26.5
--- NOTE | 2021-11-23 18:35 | XR_ITS ---
PROCEDURE INFORMATION: Exam: XR Left Shoulder Exam date and time: 11/23/2021 6:59 PM Age: 61 years old Clinical indication: Injury or trauma; Fall; Blunt trauma (contusions or hematomas); Shoulder; Left TECHNIQUE: Imaging protocol: Radiologic exam of the Left shoulder. Views: 2 or more views. COMPARISON: No relevant prior studies available. FINDINGS: Bones/joints: No acute fracture. No dislocation. Soft tissues: Unremarkable. IMPRESSION: No fracture. If pain persists, consider nonemergent MRI for further evaluation.
--- NOTE | 2021-11-23 18:35 | XR_ITS ---
PROCEDURE INFORMATION: Exam: XR Left Humerus Exam date and time: 11/23/2021 7:01 PM Age: 61 years old Clinical indication: Injury or trauma; Fall; Blunt trauma (contusions or hematomas); Shoulder; Left TECHNIQUE: Imaging protocol: Radiologic exam of the Left humerus. Views: 2 or more views. COMPARISON: No relevant prior studies available. FINDINGS: Bones/joints: No acute fracture. No dislocation. Soft tissues: Unremarkable. IMPRESSION: No fracture.
[2021-11-23 18:50] VITALS: BP 134/92; PULSE 59; RESP 18; TEMP 36.9; O2SAT 100; BMI 26.6
--- NOTE | 2021-11-23 18:59 | HMH.EDGENADL ---
Discharge Plan Disposition Chief Complaint: PAIN Prescriptions Prescriptions: No Action aspirin [Adult Low Dose Aspirin] 81 mg tablet,delayed release (DR/EC) 81 mg PO DAILY ProAir HFA 90 mcg/actuation HFA aerosol inhaler 1 puff INHALATION Q6H PRN (Reason: asthma) magnesium oxide 400 mg magnesium capsule 400 mg PO DAILY furosemide 20 mg tablet 20 mg PO DAILY PRN (Reason: weight gain) Qty: 90 3RF nitroglycerin 0.4 mg tablet, sublingual 0.4 mg SUBLINGUAL Q5M PRN (Reason: chest pain) Qty: 100 3RF Rx Instructions: until response; do not exceed 3 doses per event naproxen sodium [Aleve] 220 mg Capsule 220 mg PO BID PRN (Reason: Pain) nifedipine 30 mg tablet extended release 30 mg PO DAILY isosorbide mononitrate 120 mg tablet extended release 24 hr 120 mg PO DAILY Rx Instructions: TAKE ONE TABLET BY MOUTH DAILY levothyroxine 75 mcg tablet 75 mcg PO DAILY Rx Instructions: TAKE ONE TABLET BY MOUTH DAILY bisoprolol fumarate 5 mg tablet 5 mg PO DAILY Rx Instructions: TAKE ONE TABLET BY MOUTH TWICE A DAY ropinirole 2 mg tablet 2 mg PO QHS fluticasone propionate [Flonase Allergy Relief] 50 mcg/actuation spray,suspension 1 spray NS BID Rx Instructions: administer into each nostril budesonide-formoterol [Symbicort] 160-4.5 mcg/actuation HFA aerosol inhaler 160 inh inhalation DAILY Rx Instructions: INHALE TWO PUFFS BY MOUTH TWICE A DAY vitamin E (dl, acetate) 1,000 unit capsule 1,000 unit PO DAILY Repatha SureClick 140 mg/mL pen injector 140 mg SQ Q2W Referrals Follow up/Referrals: Umm Patiño PA [Primary Care Provider] - See instructions Discharge ED Provider: Jeanette Washburn Adult HPI General Chief complaint: PAIN Stated complaint: AO10/15@0800 fall, LT arm and shoulder pain Mode of Arrival: Ambulatory Source of Information: Patient Limitations: No Limitations Description of Symptoms (Recalled from ER Triage Doc. by RN): pt stated that at 0800 her GS pulled her about 8 ft when it seen a deer. She stated that her shoulder hurts when she trys to raise it. She states that it hurts from shoulder down to elbow. Related Data Home Medications Medication Instructions Recorded Confirmed aspirin 81 mg tablet,delayed 81 mg PO DAILY Blood thinner 09/15/17 11/07/21 release (Adult Low Dose Aspirin) albuterol sulfate 90 mcg/actuation 1 puff inhalation Q6H PRN asthma 11/26/17 11/07/21 aerosol inhaler (ProAir HFA) magnesium oxide 400 mg PO DAILY heart rate 10/26/18 11/07/21 bisoprolol fumarate 5 mg tablet 5 mg PO DAILY HTN 11/04/21 11/07/21 budesonide-formoterol HFA 160 160 inh inhalation DAILY allergies 11/04/21 11/07/21 mcg-4.5 mcg/actuation aerosol inhaler (Symbicort) evolocumab 140 mg/mL subcutaneous 140 mg SQ Q2W statin intolerance 11/04/21 11/07/21 pen injector (Geremias Butcher) fluticasone propionate 50 1 spray intranasal BID allergies 11/04/21 11/07/21 mcg/actuation nasal spray,suspension (Flonase Allergy Relief) isosorbide mononitrate 120 mg 120 mg PO DAILY HTN 11/04/21 11/07/21 tablet,extended release 24 hr levothyroxine 75 mcg tablet 75 mcg PO DAILY thyroid 11/04/21 11/07/21 naproxen sodium 220 mg capsule 220 mg PO BID PRN Pain 11/04/21 11/07/21 (Aleve) nifedipine 30 mg tablet,extended 30 mg PO DAILY HTN 11/04/21 11/07/21 release ropinirole 2 mg tablet 2 mg PO QHS rLS 11/04/21 11/07/21 vitamin E (dl, acetate) 450 mg 1,000 unit PO DAILY Supplement 11/04/21 11/07/21 (1,000 unit) capsule Previous Rx's Medication Instructions Recorded furosemide 20 mg tablet 20 mg PO DAILY PRN weight gain #90 05/29/21 tabs nitroglycerin 0.4 mg sublingual 0.4 mg sublingual Q5M PRN chest 07/16/21 tablet pain #100 tabs Allergies Allergy/AdvReac Type Severity Reaction Status Date / Time tetanus and diphtheria Allergy Mild Verified 10/03/21 09:59 tox
--- NOTE | 2021-11-23 19:05 | XR_ITS ---
PROCEDURE INFORMATION: Exam: XR Left Clavicle, Complete Exam date and time: 11/23/2021 7:02 PM Age: 61 years old Clinical indication: Injury or trauma; Fall; Blunt trauma (contusions or hematomas); Shoulder; Left TECHNIQUE: Imaging protocol: Radiologic exam of the Left clavicle. Complete exam. Views: Any number of views. COMPARISON: No relevant prior studies available. FINDINGS: Bones/joints: No acute fracture. No dislocation. Soft tissues: Unremarkable. IMPRESSION: No fracture.
--- NOTE | 2021-11-23 19:10 | HMH.EDGENADL ---
Discharge Plan Disposition Patient Disposition: Home, Self-Care Condition: Good Prescriptions Prescriptions: New methocarbamol 500 mg tablet 500 mg PO BID PRN (Reason: muscle spasms) Qty: 20 0RF No Action aspirin [Adult Low Dose Aspirin] 81 mg tablet,delayed release (DR/EC) 81 mg PO DAILY ProAir HFA 90 mcg/actuation HFA aerosol inhaler 1 puff INHALATION Q6H PRN (Reason: asthma) magnesium oxide 400 mg magnesium capsule 400 mg PO DAILY furosemide 20 mg tablet 20 mg PO DAILY PRN (Reason: weight gain) Qty: 90 3RF nitroglycerin 0.4 mg tablet, sublingual 0.4 mg SUBLINGUAL Q5M PRN (Reason: chest pain) Qty: 100 3RF Rx Instructions: until response; do not exceed 3 doses per event naproxen sodium [Aleve] 220 mg Capsule 220 mg PO BID PRN (Reason: Pain) nifedipine 30 mg tablet extended release 30 mg PO DAILY isosorbide mononitrate 120 mg tablet extended release 24 hr 120 mg PO DAILY Rx Instructions: TAKE ONE TABLET BY MOUTH DAILY levothyroxine 75 mcg tablet 75 mcg PO DAILY Rx Instructions: TAKE ONE TABLET BY MOUTH DAILY bisoprolol fumarate 5 mg tablet 5 mg PO DAILY Rx Instructions: TAKE ONE TABLET BY MOUTH TWICE A DAY ropinirole 2 mg tablet 2 mg PO QHS fluticasone propionate [Flonase Allergy Relief] 50 mcg/actuation spray,suspension 1 spray NS BID Rx Instructions: administer into each nostril budesonide-formoterol [Symbicort] 160-4.5 mcg/actuation HFA aerosol inhaler 160 inh inhalation DAILY Rx Instructions: INHALE TWO PUFFS BY MOUTH TWICE A DAY vitamin E (dl, acetate) 1,000 unit capsule 1,000 unit PO DAILY Repatha SureClick 140 mg/mL pen injector 140 mg SQ Q2W Referrals Follow up/Referrals: Umm Patiño PA [Primary Care Provider] - See instructions Froylan Wilkes DO [Staff Physician] - See instructions Activity Restrictions/Add. Instructions Additional Instructions/Restrictions: *RICE, Rest the extremity, Ice 15-20 minutes 3-4 times daily, Compress- wear the kala wrap as discussed as much as possible to help reduce swelling and pain, Elevate the extremity when at rest *Sling is for support and help control swelling, use it except in the shower. Be sure that is not to tight but not to loose either *Elevate when resting? *Ibuprofen 600-800mg every 6-8 hours as needed for pain an inflammation. If need something more can take Tylenol in between doses of Ibuprofen to help Immediately follow up with your family doctor for new or worsening of symptoms, or no noticeable improvement over the next 3-5 days Make sure to follow up with your Family Doctor or Orthopedics for further evaluation and testing if no improvement or any worsening of symptoms Clinical Impressions Clinical Impression: Injury of left shoulder and upper arm Qualifiers: Encounter type: initial encounter Qualified Code(s): S49.92XA - Unspecified injury of left shoulder and upper arm, initial encounter Instructions Patient Instructions: How To Perform RICE (Rest, Ice, Compress, Elevate), Methocarbamol Discharge ED Provider: Jeanette Washburn General Adult HPI General Chief complaint: PAIN Stated complaint: AO10@0800 fall, LT arm and shoulder pain Time Seen by Provider: 11/23/21 19:11 Mode of Arrival: Ambulatory Source of Information: Patient Limitations: No Limitations Description of Symptoms (Recalled from ER Triage Doc. by RN): PATIENT STATES THAT HER DOG SAW A DEER AND RAN, PULLING PATIENT DOWN AND DRAGGING HER APPROX 8 FOOT. C/O LEFT SHOULDER PAIN. History of Present Illness HPI narrative: Patient states that she was walking her dog earlier when her dog saw a deer and took off running and she fell and landed on her left shoulder and it drug her on the ground States that ever since she has been having pain in her left shoulder area and hurts when she tries to raise it Related Data Home Medications Medic
[2021-11-23 19:30] VITALS: BP 134/92; PULSE 59; RESP 18; TEMP 36.9; O2SAT 100
--- NOTE | 2021-11-23 20:00 | EXP.UTC ---
Discharge Plan Disposition Patient Disposition: Home, Self-Care Condition: Good Prescriptions Prescriptions: New methocarbamol 500 mg tablet 500 mg PO BID PRN (Reason: muscle spasms) Qty: 20 0RF No Action aspirin [Adult Low Dose Aspirin] 81 mg tablet,delayed release (DR/EC) 81 mg PO DAILY ProAir HFA 90 mcg/actuation HFA aerosol inhaler 1 puff INHALATION Q6H PRN (Reason: asthma) magnesium oxide 400 mg magnesium capsule 400 mg PO DAILY furosemide 20 mg tablet 20 mg PO DAILY PRN (Reason: weight gain) Qty: 90 3RF nitroglycerin 0.4 mg tablet, sublingual 0.4 mg SUBLINGUAL Q5M PRN (Reason: chest pain) Qty: 100 3RF Rx Instructions: until response; do not exceed 3 doses per event naproxen sodium [Aleve] 220 mg Capsule 220 mg PO BID PRN (Reason: Pain) nifedipine 30 mg tablet extended release 30 mg PO DAILY isosorbide mononitrate 120 mg tablet extended release 24 hr 120 mg PO DAILY Rx Instructions: TAKE ONE TABLET BY MOUTH DAILY levothyroxine 75 mcg tablet 75 mcg PO DAILY Rx Instructions: TAKE ONE TABLET BY MOUTH DAILY bisoprolol fumarate 5 mg tablet 5 mg PO DAILY Rx Instructions: TAKE ONE TABLET BY MOUTH TWICE A DAY ropinirole 2 mg tablet 2 mg PO QHS fluticasone propionate [Flonase Allergy Relief] 50 mcg/actuation spray,suspension 1 spray NS BID Rx Instructions: administer into each nostril budesonide-formoterol [Symbicort] 160-4.5 mcg/actuation HFA aerosol inhaler 160 inh inhalation DAILY Rx Instructions: INHALE TWO PUFFS BY MOUTH TWICE A DAY vitamin E (dl, acetate) 1,000 unit capsule 1,000 unit PO DAILY Repatha SureClick 140 mg/mL pen injector 140 mg SQ Q2W Referrals Follow up/Referrals: Umm Patiño PA [Primary Care Provider] - See instructions Froylan Wilkes DO [Staff Physician] - See instructions Activity Restrictions/Add. Instructions Additional Instructions/Restrictions: *RICE, Rest the extremity, Ice 15-20 minutes 3-4 times daily, Compress- wear the kala wrap as discussed as much as possible to help reduce swelling and pain, Elevate the extremity when at rest *Sling is for support and help control swelling, use it except in the shower. Be sure that is not to tight but not to loose either *Elevate when resting? *Ibuprofen 600-800mg every 6-8 hours as needed for pain an inflammation. If need something more can take Tylenol in between doses of Ibuprofen to help Immediately follow up with your family doctor for new or worsening of symptoms, or no noticeable improvement over the next 3-5 days Make sure to follow up with your Family Doctor or Orthopedics for further evaluation and testing if no improvement or any worsening of symptoms Clinical Impressions Clinical Impression: Injury of left shoulder and upper arm Instructions Patient Instructions: How To Perform RICE (Rest, Ice, Compress, Elevate), Methocarbamol Discharge ED Provider: Jeanette Washburn [facility] [place] General Chief complaint: PAIN Stated complaint: AO11/23@0800 fall, LT arm and shoulder pain Mode of Arrival: Ambulatory Source of Information: Patient Limitations: No Limitations Time Seen by Provider: 11/23/21 19:11 Description of Symptoms (Recalled from Triage Doc. by RN): PATIENT STATES THAT HER DOG SAW A DEER AND RAN, PULLING PATIENT DOWN AND DRAGGING HER APPROX 8 FOOT. C/O LEFT SHOULDER PAIN. History of Present Illness Provider Complaint: Patient states that she was walking her dog earlier when her dog seen a deer and took off running and she fell and it drug her about 8 ft States that she landed on her left shoulder and still hada hold of the leash and has been having pain left shoulder, upper arm and clavicle ever since State that hurts when she tries to raise her arm Related Data Home Medications Medication Instructions Recorded Confirmed aspirin 81 mg tablet,delayed 81 mg PO DAILY Blood thinner
== END 2021-11-23 20:25 | disposition home or self-care (01) ==
PROVIDERS: Emergency Provider Nurse Practitioner; PCP Physician Assistant
DX: M25.512 Pain in left shoulder (principal); S49.82XA Other specified injuries of left shoulder and upper arm, initial encounter; Y93.K1 Activity, walking an animal
CPT/HCPCS: 73000; 73030; 73060; 99213; G0463

== ENCOUNTER → 2021-12-03 11:12 | Outpatient (POV) | payer OTHER, SELFPAY | PROVIDERS: Visit Provider Dermatology | DX: Z00.00 Encounter for general adult medical examination without abnormal findings (principal) ==

== ENCOUNTER → 2021-12-10 07:08 | Outpatient (CLI) | payer OTHER, SELFPAY ==
--- NOTE | 2021-12-10 07:09 | MR_ITS ---
FINAL REPORT CLINICAL HISTORY: LEFT SHOULDER PAIN, LIMISTED ROM. FINDINGS: Multiplanar MR imaging of the left shoulder was performed without contrast. There is supraspinatus and infraspinatus tendinosis. There is a partial thickness articular surface tear of the supraspinatus tendon involving greater than 50% of tendon thickness. There is mild AC joint degenerative change. A small amount of fluid is seen in the subacromial/subdeltoid bursa. The glenoid labrum is intact. There is tendinosis of the long head of the biceps tendon. A small glenohumeral joint effusion is seen. There is no evidence of fracture or dislocation. The musculature is intact. There is no evidence of soft tissue mass. IMPRESSION: Supraspinatus and infraspinatus tendinosis with a partial thickness supraspinatus tendon tear, greater than 50%. Biceps tendinosis. Mild AC joint arthrosis. Small joint effusion. Reviewed, Interpreted and Dictated by Trell Martinez III, MD Transcribed by Lino Dunham Authenticated and [facility]
== END ==
LOC: RAD 07:09
PROVIDERS: PCP Physician Assistant; Visit Provider Orthopaedic Surgery
DX: M25.512 Pain in left shoulder (principal); S49.92XA Unspecified injury of left shoulder and upper arm, initial encounter
CPT/HCPCS: 73221

== ENCOUNTER 2022-01-10 06:33 | Day surgery (SDC) | payer OTHER, SELFPAY ==
[2022-01-09 08:28] VITALS: BMI 24.9
[2022-01-10] VITALS (11 sets, daily range): BP systolic 113–140; BP diastolic 73–95; PULSE 47–96; RESP 14–18; TEMP 36.1–36.3; O2SAT 94–99
--- NOTE | 2022-01-10 07:03 | XR_ITS ---
FINAL REPORT CLINICAL HISTORY: preop, shoulder sx today, on blood pressure meds FINDINGS: SINGLE-VIEW CHEST The heart size is normal. The mediastinum is normal. The lungs are clear. There is no pneumothorax. IMPRESSION: No acute cardiopulmonary process. Reviewed, Interpreted and Dictated by Dixon Dietz MD Transcribed by Claire Rogel Authenticated and [facility]
--- NOTE | 2022-01-10 07:49 | EXP.ANES.CKL ---
[facility] Disclaimer: The information contained in this section may have been updated after the patient was seen, as this information can be updated by other users. Medical History (Updated 01/10/22 @ 07:45 by La Ellis RN) Bradycardia Chest pain Fibrocystic breast HHD (hypertensive heart disease) History of asthma HLD (hyperlipidemia) Hx of sinus bradycardia Menopause PAC (premature atrial contraction) PVCs (premature ventricular contractions) Skin cancer SOB (shortness of breath) Statin intolerance Surgical History H/O local excision of skin lesion History of History of radiofrequency ablation procedure for cardiac arrhythmia Family History Father FH: esophageal cancer Other Seizures Social History (Updated 01/10/22 @ 07:30 by La Ellis RN) Smoking Status: Former smoker how long ago did patient quit smokin years second hand exposure: No alcohol intake: former counseling given: No substance use type: denies use current occupational status: disabled Travel in the last 8 weeks: None household members: spouse housing: house lives independently: No marital status: education level: high school current occupational exposures/hazards: No caffeine: Yes do you feel safe at home: Yes victim of physical abuse: No victim of emotional abuse: No victim of sexual abuse: No would you like helpful sources: No [facility] Anesthesia Checklist Patient Identification Patient Identification: Arm Band Structural Data Admitted From: Home Planned Operative Procedure/s: Left Shoulder Arthroscopy, Rotator Cuff Repair Consent for Planned Operative Procedure(s) Verified: Yes Verified Documents: Surgical Consent, History and Physical and Cardiac Clearance NPO Status Verified Time NPO: 00:00 Additional verifications Anesthesia Reactions: No Hx Blood Transfusions: No Blood Transfusion Reaction: No Airway Assessment C-Spine Mobility Assessed: Yes TMJ Mobility Assessed: Yes Dentition: Good Dentition Neurological Assessment Level of Consciousness: Awake and Alert Anesthesia Plan Anesthesia Risk discussed: Yes Anesthesia Plan: Verified ASA Class: III Anesthesia Type: General w/block (Left Interscalene Nerve Block)
[2022-01-10 07:50] LABS: Basophils # 0.1 K/mm3 (0-0.2); Basophils % 1.1 % (0.1-2.0); Eosinophils # 0.1 K/mm3 (0.0-0.4); Hematocrit 43.4 % (37.0-47.0); Hemoglobin 13.9 g/dL (12.2-16.2); Lymphocytes % 33.7 % (10-50); Mean Corpuscular HGB Conc 32.1 g/dL (31.8-35.4); Mean Corpuscular Volume 90.5 fl (81-99); Monocytes # 0.3 K/mm3 (0.1-1.0); Monocytes % 5.1 % (1.7-9.3); Neutrophils # 3.5 K/mm3 (1.8-7.8); Neutrophils % 58.1 % (37.0-80.0); Platelet Count 249 K/mm3 (142-424); Red Cell Distribution Width 13.2 % (11.5-17.5)
[2022-01-10 07:54] LABS: Chloride 104 mmol/L (98-107); Potassium 3.9 mmoL/L (3.5-5.1); Sodium 139 mmol/L (136-145)
[2022-01-10 07:57] LABS: Alanine Aminotransferase 20 U/L (12-78); Albumin Level 4.2 g/dl (3.5-5.0); Albumin/Globulin Ratio 1.6 (1.1-1.8); Alkaline Phosphatase 77 U/L (38-126); Anion Gap 10.9 mEq/L (5-15); Aspartate Amino Transferase 29 U/L (14-36); Bilirubin,Total 0.3 mg/dl (0.2-1.3); Blood Urea Nitrogen 25 mg/dl (7-17); Calcium 10.5 mg/dl (8.4-10.2); Carbon Dioxide 28 mmol/L (22.0-30.0); Creatinine Clearance Estimated 70 mL/min (50-200); Estimated Glomerular Filt Rate 64 ml/min (>60); GFR (African American) 78 ML/MIN (>60); Globulin 2.6 g/dL (1.3-3.2); Glucose 82 mg/dl (74-100); Total Protein,Serum 6.8 g/dl (6.3-8.2)
--- NOTE | 2022-01-10 08:21 | SUR.PREOP ---
Pt unable to urinate for UA ordered this AM. Dr. Wilkes informed and said it was ok to D/C order.
--- NOTE | 2022-01-10 10:51 | P.OP_ITS ---
Date of procedure: 01/10/22 Pre-op Diagnosis:: Left shoulder rotator cuff tear Post-op Diagnosis:: Same Procedure performed:: Left shoulder arthroscopy with rotator cuff repair Surgeon:: Froylan Wilkes DO Anesthesia: GETA and regional Estimated blood loss (mL): 0 Operative findings:: See dictation Operative note:: Patient is identified preoperatively. Left arm marked yes my initials. Underwent a block with anesthesia. Then transferred to operative suite placed upon operating bed. General anesthesia ministered. Airway secured. Then placed in a lateral position with a beanbag with all bony prominences well- padded. Left upper extremities then prepped and draped normal sterile fashion. Once prepped and draped final operative timeout performed to identify proper patient procedure and extremity. Everyone involved in case agreed. No counter indications to beginning. Did receive preoperative antibiotics. Marking pen was used to make planned portal sites. Skin F was used incise posterior viewing portal blunt with trocar was placed in the glenohumeral joint. 6 change of the camera. Move directly anteriorly above the subscapularis tendon where the anterior working portal was made and switch with a purple cannula. Probe was placed. There was some mild fraying of the base of the biceps and the anterior labrum. This was debrided. Biceps tendon was intact without split or tear. Biceps anchor was stable. There was evidence of tearing of the rotator cuff seen on the articular surface which was debrided. This was near full-thickness tear more than 50% of the tendon. Attention was then brought the subacromial space. Thin subacromial space near full-thickness rotator cuff tear of the supraspinatus was seen this few remaining fibers were debrided and tear was completed. The edges of the tear were debrided. The footprint was debrided. Using a speed fix technique fiber tape was placed through the rotator cuff and brought out to the medial anchor for good repair of the rotator cuff. No further pathology was seen. Cameras removed the joint was drained. Skin was closed with nylon stitches. Sterile dressing placed. Patient patient is sling and pillow taken recovery in stable condition. Condition: stable Disposition: PACU Complications:: None apparent
--- NOTE | 2022-01-10 10:56 | P.PNANES_ITS ---
[facility] Anesthesia Record Part I Anesthesia Record I Intake, IV Amount: 1,400 Estimated blood loss (mL): 5 Urine output (mL): 0 Blood Products used (#): none Blood Pressure: 113/76 SaO2: 98 Pulse Rate: 96 Respiratory Rate: 16 Temperature: 97 F Patient is:: Drowsy and Stable Stable to PACU at:: 10:48
--- NOTE | 2022-01-10 11:11 | SUR.PHASEI ---
1111 Dr. Wilkes at bedside talking to patient
--- NOTE | 2022-01-10 11:32 | SUR.PHASEI ---
1115 called and gave detailed report to Karissa Lopez RN [id number] transported via stretcher to post op. vital signs stable. states shoulder is achy and rates it a 4 but wishes to go to next phase for discharge home. left in stable condition with Karissa Lopez RN at bedside.
--- NOTE | 2022-01-10 13:40 | EXP.ANES.II ---
[facility] Anesthesia Record Part II Anesthesia Record Part II Discharge Time: 11:18 Destination: Surgical Day Care (OP Surgery) PACU nurse assessment reviewed?: Yes Patient Condition:: Good Anesthesia Complications:: None Swallowing reflex intact?: Yes Cyanosis?: No Blood Pressure: 132/80 Pulse Rate: 80 Temperature: 97 F Mental Status: Alert & Oriented Pain level:: 4 (Pt describes pain as a slight Ache. No c/o of sharp/severe pain) Nausea and/or vomitting:: None Intake, IV Amount: 0
[2022-03-13 15:36] VITALS: TEMP 36.1
== END 2022-01-10 12:14 | disposition home or self-care (01) ==
PROVIDERS: PCP Physician Assistant; Visit Provider Orthopaedic Surgery
PROC: (CPT 29827; principal; 2022-01-10 08:30)
DX: S46.012A Strain of muscle(s) and tendon(s) of the rotator cuff of left shoulder, initial encounter (principal); Y93.89 Activity, other specified; Y92.017 Garden or yard in single-family (private) house as the place of occurrence of the external cause; W01.0XXA Fall on same level from slipping, tripping and stumbling without subsequent striking against object, initial encounter
CPT/HCPCS: 29827; 71045; 80053; 85025; 96374; C1713; J2405

== ENCOUNTER → 2022-02-03 07:40 | Outpatient (CLI) | payer OTHER, SELFPAY ==
--- NOTE | 2022-02-03 07:41 | MM_ITS ---
PROCEDURE INFORMATION: Exam: MG Bilateral Screening 3D Mammography Exam date and time: 02/03/2022 7:58 AM Age: 61 years old Clinical indication: Screening mammogram TECHNIQUE: Imaging protocol: Bilateral Screening tomosynthesis and 2D mammography including computer-aided detection (CAD) when performed. Other technique: Mammogram COMPARISON:; MG MM DIG SCREENING MAMM BI W/CAD 01/30/2021 10: 47 AM; MG MM DIG SCREENING MAMM BI W/CAD 01/27/2020 10: 56 AM; MG MM DIG MAMM DX UNILAT LT CAD 02/08/2019 2: 50 PM; MG MM DIG SCREENING MAMM BI W/CAD 01/24/2019 9: 15 AM COMPARISON: No relevant prior studies available. FINDINGS: MAMMOGRAPHY: Breast composition: There are scattered areas of fibroglandular density. Mass: None. Architectural distortion: No new or suspicious architectural distortion. Calcifications: No new or suspicious calcifications are present Asymmetric density: No new or suspicious asymmetric density is present Skin thickening: None. Axillary adenopathy: None. IMPRESSION: No mammographic evidence of malignancy. Recommend annual screening mammography unless otherwise clinically indicated. ASSESSMENT: BI-RADS category 1: Negative
== END ==
PROVIDERS: PCP Physician Assistant; Visit Provider Physician Assistant
DX: Z12.31 Encounter for screening mammogram for malignant neoplasm of breast (principal)
CPT/HCPCS: 77063; 77067

== ENCOUNTER 2022-04-21 10:00 | Outpatient (RCR) | payer OTHER, SELFPAY ==
--- NOTE | 2022-01-29 15:12 | HMH.PTOPEV ---
PT Outpatient Evaluation Rehab PT Outpatient Evaluation Start: 01/29/22 13:35 Freq: Status: Active Protocol: Document 01/29/22 13:35 PDESEROUX (Rec: 01/29/22 15:11 PDESEROUX [id number]) E-signed By Arian Mckee, PT Outpatient Therapy Subjective History Subjective History Pt. is a 61 year old female whom presents to [facility] Outpatient Physical Therapy Services in [place] for the initial evaluation this date( 01/29/22) w/ c/o acute and constant LUE shldr. post- surgical P!, aching, and weakness S/P LUE shldr. ATS sx . on 01/10/22. Pt. reported having surgery secondary to a traumatic experience. Pt. reports having the biceps tendon shredded, and tore and partially tore RC muscles according to the diagnostic imaging. Pt. reports being instructed to don brace while on her feet and going places, instructed she can take it off while bathing and resting at home. Pt. reports icing her shldr. 3x/day for 20mins. Pt. reports she's been sleeping without her brace, but states her sleep is obstructed. Pt. RTMD 02/20/22. Current medications include Acetaminophen, Oxycodone, Amlodipine, Aleve, Bisoprolol, and Isosorbide. PMH includes hx. of PVC and PAC, heart ablation, asthma, bradycardia, section, excision surgeries x 2 for basal cell carcinoma. Chief Complaint Pain,Stiff,Weakness Symptom Type Ache,Throb,Sharp,Dull,Stabbing ,Shooting Symptoms Relieved By Rest/Positioning,Ice,Brace/ Support,Prescription Meds Symptoms Aggravated By Bending/Stooping,Physical Activity,Lifting Prior Functional Limitations None Current Functional Limitations Reaching,Lifting,Housework, Dressing,Driving,Sleeping,
== END 2022-05-01 16:20 | disposition home or self-care (01) ==
LOC: PT 10:00
PROVIDERS: Visit Provider Orthopaedic Surgery
DX: M75.112 Incomplete rotator cuff tear or rupture of left shoulder, not specified as traumatic (principal); M25.512 Pain in left shoulder
CPT/HCPCS: 97010; 97014; 97035; 97110; 97140; 97163; 97164; 97530; G0283

== ENCOUNTER → 2022-06-04 12:04 | Outpatient (CLI) | payer OTHER, SELFPAY ==
[2022-06-04 13:13] LABS: Basophils # 0.1 K/mm3 (0-0.2); Eosinophils # 0.1 K/mm3 (0.0-0.4); Eosinophils % 2.1 % (0.1-12.0); Hematocrit 46.5 % (37.0-47.0); Hemoglobin 15.2 g/dL (12.2-16.2); Lymphocytes # 2.3 K/mm3 (0.7-4.5); Lymphocytes % 36.4 % (10-50); Mean Corpuscular HGB Conc 32.6 g/dL (31.8-35.4); Mean Corpuscular Hemoglobin 29.5 pg (27.0-31.2); Mean Corpuscular Volume 90.4 fl (81-99); Monocytes # 0.3 K/mm3 (0.1-1.0); Monocytes % 4.3 % (1.7-9.3); Neutrophils # 3.6 K/mm3 (1.8-7.8); Neutrophils % 56.2 % (37.0-80.0); Platelet Count 244 K/mm3 (142-424); Red Blood Count 5.15 M/mm3 (4.20-5.40); Red Cell Distribution Width 13.3 % (11.5-17.5); White Blood Count 6.4 K/mm3 (4.8-10.8)
[2022-06-04 13:34] LABS: Alanine Aminotransferase 24 U/L (12-78); Albumin Level 4.5 g/dl (3.5-5.0); Alkaline Phosphatase 79 U/L (38-126); Anion Gap 11.2 mEq/L (5-15); Aspartate Amino Transferase 32 U/L (14-36); Bilirubin,Indirect 0.7 mg/dL (0.0-0.9); Bilirubin,Total 0.7 mg/dl (0.2-1.3); Bilirubin,Unconjugated 0.7 mg/dL (0.0-1.1); Blood Urea Nitrogen 15 mg/dl (7-17); Calcium 10.6 mg/dl (8.4-10.2); Carbon Dioxide 30 mmol/L (22.0-30.0); Chloride 101 mmol/L (98-107); Chol/HDL Ratio 1.8 (1-3.5); Cholesterol 148 mg/dl (140-200); Estimated Glomerular Filt Rate 73 ml/min (>60); GFR (African American) 89 ML/MIN (>60); Glucose 90 mg/dl (74-100); HDL Cholesterol 82 mg/dl (40-60); Magnesium 1.9 mg/dl (1.6-2.3); Potassium 4.2 mmoL/L (3.5-5.1); Sodium 138 mmol/L (136-145); Total Protein,Serum 6.9 g/dl (6.3-8.2); Triglycerides 91 mg/dl (30-150); VLDL Cholesterol 18 mg/dL (0-40)
[2022-06-04 13:46] LABS: Direct LDL Cholesterol 48.64 mg/dL (100-129)
[2022-06-04 13:50] LABS: Free T4 (Free Thyroxine) 1.31 ng/dl (0.78-2.19)
[2022-06-04 14:04] LABS: Thyroid Stimulating Hormone 1.62 uIU/mL (0.465-4.68)
[2022-06-05 09:42] LABS: Vitamin B12 727 pg/mL (239-931)
[2022-06-05 16:02] LABS: Folate > 20.00 ng/mL
== END ==
PROVIDERS: PCP Physician Assistant; Visit Provider Physician Assistant
DX: R06.02 Shortness of breath (principal); R00.2 Palpitations; I49.5 Sick sinus syndrome; I11.9 Hypertensive heart disease without heart failure; E78.5 Hyperlipidemia, unspecified; R53.83 Other fatigue; R20.0 Anesthesia of skin; R20.2 Paresthesia of skin; Z79.899 Other long term (current) drug therapy
CPT/HCPCS: 36415; 80048; 80061; 80076; 82607; 82746; 83735; 84439; 84443; 85025; 93270

== ENCOUNTER → 2022-06-18 09:19 | Outpatient (CLI) | payer OTHER, SELFPAY ==
[2022-06-18 11:24] LABS: Phosphorous 3.7 mg/dl (2.5-4.5)
[2022-06-18 11:37] LABS: Intact Parathyroid Hormone 63.4 pg/mL (7.5-53.5)
== END ==
LOC: LAB 09:19
PROVIDERS: PCP Physician Assistant; Visit Provider Physician Assistant
DX: R06.02 Shortness of breath (principal); I20.8 Other forms of angina pectoris; I11.9 Hypertensive heart disease without heart failure; I27.20 Pulmonary hypertension, unspecified; I49.5 Sick sinus syndrome; Q24.5 Malformation of coronary vessels; R20.0 Anesthesia of skin; R20.2 Paresthesia of skin; E78.5 Hyperlipidemia, unspecified; S49.92XA Unspecified injury of left shoulder and upper arm, initial encounter
CPT/HCPCS: 36415; 83970; 84100

== ENCOUNTER → 2022-06-26 13:17 | Outpatient (CLI) | payer OTHER, SELFPAY ==
--- NOTE | 2022-06-26 13:28 | XR_ITS ---
FINAL REPORT CLINICAL HISTORY: left knee pain FINDINGS: LEFT KNEE: Three views of the left knee were obtained. There is no acute fracture or dislocation. There are mild degenerative changes in the patellofemoral compartment and the medial compartment. There is no joint effusion. Soft tissues are unremarkable. IMPRESSION: No acute bony abnormality. Reviewed, Interpreted and Dictated by Trell Martinez III, MD Transcribed by Kaylah Beasley Authenticated and [facility]
== END ==
LOC: RAD 13:19
PROVIDERS: PCP Physician Assistant; Visit Provider Orthopaedic Surgery
DX: M25.562 Pain in left knee (principal)
CPT/HCPCS: 73562

== ENCOUNTER 2022-07-11 08:39 | Day surgery (SDC) | payer OTHER, SELFPAY ==
[2022-07-11] VITALS (7 sets, daily range): BP systolic 102–144; BP diastolic 54–89; PULSE 48–63; RESP 16–20; TEMP 37; O2SAT 95–100; BMI 23.0
--- NOTE | 2022-07-11 | IR_ITS ---
APPROVED REPORT Patient Location: Outpatient Latent Print Examiner: TRACY Millan RT (R) PROCEDURES 1. Pocket formation for Permanent Pacemaker Placement. 2. Placement of an atrial sensing and pacing coil into the right atrial appendage. 3. Placement of a ventricular sensing and pacing coil in the right ventricular apex. 4. Permanent Pacemaker Placement. INDICATION Sinus Node Disease; Tachy Rubio Syndrome Informed consent was obtained prior to the procedure. COMPLICATIONS None Estimated Blood Loss: Less than 10 ML TECHNIQUE 1% Lidocaine with epinephrine used to anesthetized the left anterior aspect of the chest. Scalpel was used to make the initial cutaneous incision while electrocautery was used to dissect down tinto the fascia. The fascia was lifted off the pectoralis muscle and digitally manipulated creating a pocket for the pacemaker. The patient was then placed in Trendelenburg position and the subclavian vein was accessed twice via the Selinger technique, there are two wires in the vein. A 6 Kazakh sheath was placed under fluoroscopic guidance into the subclavian vein over one of the wires while keeping the other wire in place within the subclavian vein. The dilator was removed from the sheath. Using fluoroscopic guidance, the ventricular lead was placed into the right ventricular apex, screwed and secured into place. Electronic interrogation proved acceptable thresholds and voltage within the lead. Using 3-0 silk, the ventricular lead was then secured into place. Lead was secured to the facia using the 3-0 silk. Following this, the sheath was pealed away. An additional 6 Kazakh fresh sheath and dilator was placed over the existing wire. Using fluoroscopic guidance, the atrial lead was the placed into the right atrial appendage and screwed and secured in place. Electrical interrogation demonstrated acceptable thresholds and voltage number. The atrial lead was then secured into place using 3-0 silk. 1 gram of Ancef was used to flush the pocket. Following the pacemaker generator being secured to the fascia and in place, Monocryl was used to close the subcutaneous layers while lisa were used to close the cutaneous layer. A pressure dressing was placed and the patient was transferred to the postop holding area in stable condition for postoperative care. INTERROGATION Generator Model number: [employer] [facility] PM 2272 Generator Serial number: [id number] Atrial lead model number: Tendril STS 2088TC 46 cm Atrial lead serial number: [id number] P-wave: 3.5 mV Impedence: 559 Ohms Threshold: 0.5V@0.4ms Right Ventricular lead model number: Kasey KANG 8TC 52 cm Right Ventricular lead serial number: [id number] R-wave: 10.5 mV Impedence: 759 Ohms Threshold: 0.25V@0.4ms Pacing Parameters: Mode: DDDR Base/Max Track:60 ppm / 130 ppm No diaphragmatic stimulation at 10 volts. IMPRESSION 1. Successful pocket formation for Permanent Pacemaker Placement. 2. Successful placement of an atrial sensing and pacing coil into the right atrial appendage. 3. Successful placement of a ventricular sensing and pacing coil in the right ventricular apex. 4. Successful permanent Pacemaker Placement. PLAN 1. Postop wound care. Electronically signed by : Dilip Goodson MD 07/15/2022 10:19:29
[2022-07-11 09:30] LABS: Basophils # 0.1 K/mm3 (0-0.2); Basophils % 0.7 % (0.1-2.0); Eosinophils # 0.3 K/mm3 (0.0-0.4); Eosinophils % 3.7 % (0.1-12.0); Hematocrit 47.1 % (37.0-47.0); Hemoglobin 15.2 g/dL (12.2-16.2); Lymphocytes # 2.4 K/mm3 (0.7-4.5); Lymphocytes % 32.2 % (10-50); Mean Corpuscular HGB Conc 32.3 g/dL (31.8-35.4); Mean Corpuscular Hemoglobin 28.7 pg (27.0-31.2); Mean Corpuscular Volume 88.8 fl (81-99); Mean Platelet Volume 8.2 fl (7.4-10.4); Monocytes # 0.3 K/mm3 (0.1-1.0); Monocytes % 4.1 % (1.7-9.3); Neutrophils # 4.4 K/mm3 (1.8-7.8); Neutrophils % 59.3 % (37.0-80.0); Platelet Count 277 K/mm3 (142-424); Red Cell Distribution Width 13.2 % (11.5-17.5); White Blood Count 7.5 K/mm3 (4.8-10.8)
[2022-07-11 09:38] LABS: Anion Gap 20.1 mEq/L (5-15); Blood Urea Nitrogen 31 mg/dl (7-17); Calcium 10.3 mg/dl (8.4-10.2); Carbon Dioxide 25 mmol/L (22.0-30.0); Chloride 101 mmol/L (98-107); Creatinine Clearance Estimated 81 mL/min (50-200); Estimated Glomerular Filt Rate 64 ml/min (>60); GFR (African American) 77 ML/MIN (>60); Glucose 80 mg/dl (74-100); Potassium 4.1 mmoL/L (3.5-5.1); Sodium 142 mmol/L (136-145)
--- NOTE | 2022-07-11 10:05 | EXP.ANES.CKL ---
[facility] Disclaimer: The information contained in this section may have been updated after the patient was seen, as this information can be updated by other users. Medical History Bradycardia Chest pain Coronary artery disease Fibrocystic breast Reviewed mammograms and US HHD (hypertensive heart disease) History of asthma HLD (hyperlipidemia) Hx of sinus bradycardia Menopause PAC (premature atrial contraction) PVCs (premature ventricular contractions) Skin cancer SOB (shortness of breath) Statin intolerance Surgical History H/O local excision of skin lesion History of History of radiofrequency ablation procedure for cardiac arrhythmia Family History Father FH: esophageal cancer Other Seizures Social History Smoking Status: Former smoker how long ago did patient quit smokin years second hand exposure: No alcohol intake: former counseling given: No substance use type: denies use current occupational status: disabled Travel in the last 8 weeks: None household members: spouse housing: house lives independently: No marital status: education level: high school current occupational exposures/hazards: No caffeine: Yes do you feel safe at home: Yes victim of physical abuse: No victim of emotional abuse: No victim of sexual abuse: No would you like helpful sources: No [facility] Anesthesia Checklist Patient Identification Patient Identification: Arm Band Structural Data Admitted From: Home Planned Operative Procedure/s: Dual Chamber Pacemaker Consent for Planned Operative Procedure(s) Verified: Yes Verified Documents: Surgical Consent and History and Physical NPO Status Verified Time NPO: 00:00 Additional verifications Anesthesia Reactions: No Hx Blood Transfusions: No Blood Transfusion Reaction: No Airway Assessment C-Spine Mobility Assessed: Yes TMJ Mobility Assessed: Yes Dentition: Good Dentition Neurological Assessment Level of Consciousness: Awake and Alert Anesthesia Plan Anesthesia Risk discussed: Yes Anesthesia Plan: Verified ASA Class: III Anesthesia Type: MAC
--- NOTE | 2022-07-11 16:15 | XR_ITS ---
PROCEDURE INFORMATION: Exam: XR Chest Exam date and time: 07/11/2022 4:50 PM Age: 62 years old Clinical indication: Device placement; Cardiac pacemaker placement or adjustment; Additional info: Confirm pacemaker/aid placement TECHNIQUE: Imaging protocol: Radiologic exam of the chest. Views: 1 view. COMPARISON: CR XR CHEST PORTABLE 01/10/2022 7:04 AM FINDINGS: Tubes, catheters and devices: Two lead pacemaker grossly in place. Lungs: Unremarkable. No consolidation. Pleural spaces: Unremarkable. No pleural effusion. No pneumothorax. Heart/Mediastinum: Stable mild cardiomegaly. Bones/joints: Unremarkable. IMPRESSION: No acute radiographic findings identified.
== END 2022-07-11 17:26 | disposition home or self-care (01) ==
PROVIDERS: PCP Physician Assistant; Visit Provider Internal Medicine
DX: I49.5 Sick sinus syndrome (principal); I25.118 Atherosclerotic heart disease of native coronary artery with other forms of angina pectoris; I11.9 Hypertensive heart disease without heart failure; E78.5 Hyperlipidemia, unspecified; Z87.891 Personal history of nicotine dependence; Z79.899 Other long term (current) drug therapy; I27.20 Pulmonary hypertension, unspecified
CPT/HCPCS: 33208; 71045; 80048; 85025; C1785; C1898; J2704

== ENCOUNTER → 2022-08-05 09:50 | Outpatient (CLI) | payer OTHER, SELFPAY ==
--- NOTE | 2022-08-05 09:51 | NM_ITS ---
FINAL REPORT CLINICAL HISTORY: elevated PTH, AND CALCIUM FINDINGS: 19.3 mCi Technetium Sestamibi was administered. Planar imaging was performed early and two-hour delayed of the neck and upper thorax. Early imaging shows physiologic uptake within the upper neck involving the salivary glands and lower neck involving the thyroid gland. On delayed imaging there is no abnormal retained activity in the lower neck or mediastinum to localize parathyroid adenoma. IMPRESSION: No scintigraphic evidence of parathyroid adenoma. Authenticated and [facility]
== END ==
PROVIDERS: PCP Physician Assistant; Visit Provider Nurse Practitioner
DX: E21.3 Hyperparathyroidism, unspecified (principal)
CPT/HCPCS: 78070; A9500

== ENCOUNTER → 2022-10-08 11:45 | Outpatient (CLI) | payer OTHER, SELFPAY ==
--- NOTE | 2022-10-08 | CA_ITS ---
APPROVED REPORT Exam: Pharmacologic Technologist: Magdalena Gutierrez, Ht: 5 ft 4 in Wt: 148 lbs BSA: 1.72 m2 HR: 60 bpm BP: 166/103 mmHg Rhythm: NSR Medical History Medications: Aspirin,,,,, Vitamin E,,,,, Flonase,,,,, Ropinirole,,,,, BisOPROLOL Fumarate,,,,, Nitroglycerin,,,,, Magnesium OXIDE,,,,, Evolocumab,,,,, Furosemide,,,,, Stress Test Details Test: LEXISCAN Reason for pharmacologic stress test: physical limitation. HR Resting HR: 60 bpm Max Heart Rate (APMHR): 160 bpm Max HR Achieved: 65 bpm Target HR (85% APMHR): 136 bpm % of APMHR: 41 Recovery HR: 60 bpm BP Resting BP: 166/103 mmHg Max BP: 166/103 mmHg Recovery BP: 151.0/92.0 mmHg ECG Resting ECG: NSR, non-specific ST abnormality in inferolateral leads Stress ECG: No ST changes Arrhythmia: None Clinical Exercise duration: 04:23 min Highest Stage Achieved: Stress ECG Conclusion Symptoms: SOA, mild BAKER, mild stomach discomfort. Arrhythmias/Ectopy: None ST-T Changes: No significant ST changes Conclusion: Non-diagnostic Lexiscan stress due to baseline abnormalities. Myoview images reported separately. Test Summary REST . . . . . . . Resting REST 07:03 . . 60 . 166/103 . . Stage 1 01:00 . . 60 . . . . Stage 2 01:00 . . 62 . . . . Stage 3 01:00 . . 60 . 146/ 99 . . Stage 4 01:00 . . 60 . . . . Stage 4 01:23 . . 60 . . . Stop exercise at 04:23 RECOVERY 01:00 . . 60 . 150/ 93 . . RECOVERY 02:00 . . 60 . 151/ 95 . . RECOVERY 03:00 . . 60 . 151/ 95 . . RECOVERY 03:19 . . 60 . 151/ 92 . . Electronically signed by : Oly Meléndez, 10/13/2022 16:49:14
--- NOTE | 2022-10-08 11:50 | NM_ITS ---
APPROVED REPORT Exam: Nuclear Stress Test Indication: DYSRHYTHMIA, HTN, C.P., SOB, PALPITATIONS, PACEMAKER, DIZZINESS Patient Location: Outpatient Stress Tech: Magdalena Hernadez [place] Tech:Aye Bennett, JASONT RT(R)(N) Ht: 5 ft 4 in Wt: 148 lbs Bra Size: D HR: 60 bpm BP: 166/103 mmHg BSA: 1.72 m2 Rhythm: NSR TID: 0.98 BMI: 25.4 History: DYSRHYTHMIA, HTN, C.P., SOB, PALPITATIONS, PACEMAKER, DIZZINESS Procedure: Patient received 0.4 mg of intravenous Lexiscan, resting heart rate 60 bpm, resting blood pressure 166/103 mmHg, with Lexiscan maximum heart rate achieved was 65 bpm which is % of the maximum predicted heart rate and blood pressure was 166/103 mmHg. With Lexiscan, patient denied any complaint of chest pain. Cardiac Stress and Resting SPECT Images: Cardiac Stress and Resting SPECT images were obtained using technetium 99m Myoview 31.6 mCi stress and 10.44 mCi at rest. Resting and stress imaging in both supine and prone positions demonstrate a medium-sized, mild, reversible perfusion defect in the basal anterior and anteroseptal LV hidalgo. Gated imaging demonstrates low-normal global and regional LV systolic function. LVEF is calculated at 52%. Conclusion: Medium-sized, mild, reversible perfusion defect in the basal anterior and anteroseptal LV hidalgo. Findings are suggestive of reversible ischemia. Gated imaging demonstrates low-normal global and regional LV systolic function. LVEF is calculated at 52%. Electronically signed by : Oly Meléndez, 10/13/2022 16:52:23
== END ==
PROVIDERS: PCP Physician Assistant; Visit Provider Physician Assistant
DX: R07.9 Chest pain, unspecified (principal); I25.10 Atherosclerotic heart disease of native coronary artery without angina pectoris; Q24.5 Malformation of coronary vessels; Z95.0 Presence of cardiac pacemaker
CPT/HCPCS: 78452; 93017; A9502; J2785

== ENCOUNTER 2022-10-24 09:37 | Day surgery (SDC) | payer OTHER, SELFPAY ==
[2022-10-24] VITALS (12 sets, daily range): BP systolic 111–181; BP diastolic 74–99; PULSE 60–74; RESP 14–18; O2SAT 95–99; BMI 25.4
--- NOTE | 2022-10-24 | IR_ITS ---
APPROVED REPORT Patient Location: Outpatient PROCEDURES Left heart catheterization Left ventriculogram Selective coronary angiogram INDICATION Angina pectoris, Abnormal Myoview, Informed consent was obtained prior to the procedure. COMPLICATIONS None Estimated Blood Loss: Less than10 mls TECHNIQUE One percent lidocaine used to anesthetize the right anterior aspect of the wrist. The right radial artery was accessed via the Seldinger technique. A 6 Italian sheath was placed in the right radial artery. 2.5 mg of Verapamil, 800 mcg of nitroglycerin, 1mg Lidocaine and 5000 U Heparin were given through the arterial sheath. The papa catheter was also used to perform left heart catheterization, left ventriculogram and selective coronary angiogram. At the end of the procedure the sheath was removed good hemostasis was achieved using Traclet band, patient was transferred to the postop holding area in stable condition. ANGIOGRAPHIC RESULTS The left main artery Normal The left anterior descending artery Is a small vessel yet angiographically normal The circumflex artery Nondominant normal The right coronary artery Massively large and dominant with a large portion of the left ventricle supplied through distal marginal branches The MACKEY ventriculogram reveals Normal 65% The left ventricular end-diastolic pressure Elevated at 20 to 25 mmHg IMPRESSION Normal coronary arteries Normal ejection fraction Elevated LVEDP consistent with diastolic dysfunction PLAN 1. Treatment of underlying diastolic dysfunction Electronically signed by : Dilip Goodson MD 10/24/2022 13:27:00
[2022-10-24 09:56] LABS: Basophils # 0.1 K/mm3 (0-0.2); Basophils % 1.4 % (0.1-2.0); Eosinophils # 0.1 K/mm3 (0.0-0.4); Eosinophils % 1.6 % (0.1-12.0); Hematocrit 52.1 % (37.0-47.0); Hemoglobin 16.4 g/dL (12.2-16.2); Lymphocytes % 30.2 % (10-50); Mean Corpuscular HGB Conc 31.5 g/dL (31.8-35.4); Mean Corpuscular Hemoglobin 28.6 pg (27.0-31.2); Mean Corpuscular Volume 90.8 fl (81-99); Mean Platelet Volume 8.1 fl (7.4-10.4); Monocytes # 0.3 K/mm3 (0.1-1.0); Monocytes % 4.8 % (1.7-9.3); Neutrophils # 4.1 K/mm3 (1.8-7.8); Platelet Count 266 K/mm3 (142-424); Red Blood Count 5.74 M/mm3 (4.20-5.40); Red Cell Distribution Width 13.3 % (11.5-17.5); White Blood Count 6.6 K/mm3 (4.8-10.8)
[2022-10-24 10:04] LABS: Anion Gap 12.4 mEq/L (5-15); Blood Urea Nitrogen 24 mg/dl (7-17); Calcium 10.5 mg/dl (8.4-10.2); Carbon Dioxide 30 mmol/L (22.0-30.0); Chloride 103 mmol/L (98-107); Creatinine Clearance Estimated 63 mL/min (50-200); Estimated Glomerular Filt Rate 57 ml/min (>60); GFR (African American) 68 ML/MIN (>60); Glucose 99 mg/dl (74-100); Potassium 4.4 mmoL/L (3.5-5.1); Sodium 141 mmol/L (136-145)
== END 2022-10-24 15:59 | disposition home or self-care (01) ==
PROVIDERS: PCP Physician Assistant; Visit Provider Internal Medicine
DX: R94.39 Abnormal result of other cardiovascular function study (principal); I25.118 Atherosclerotic heart disease of native coronary artery with other forms of angina pectoris; Z79.899 Other long term (current) drug therapy; I11.9 Hypertensive heart disease without heart failure; I49.5 Sick sinus syndrome; E78.5 Hyperlipidemia, unspecified; I27.20 Pulmonary hypertension, unspecified; Z95.0 Presence of cardiac pacemaker; E83.52 Hypercalcemia
CPT/HCPCS: 36415; 80048; 85025; 93458; 99152; C1725; C1769; J1644; Q9967

== ENCOUNTER → 2022-11-18 10:38 | Outpatient (CLI) | payer OTHER, SELFPAY ==
[2022-11-18 12:39] LABS: Intact Parathyroid Hormone 39.3 pg/mL (7.5-53.5)
[2022-11-18 12:41] LABS: Free T4 (Free Thyroxine) 1.16 ng/dl (0.78-2.19)
[2022-11-18 12:55] LABS: Blood Urea Nitrogen 23 mg/dl (7-17); Estimated Glomerular Filt Rate 73 ml/min (>60); GFR (African American) 89 ML/MIN (>60)
[2022-11-18 12:58] LABS: Thyroid Stimulating Hormone 1.48 uIU/mL (0.465-4.68)
== END ==
PROVIDERS: Internal Medicine; PCP Physician Assistant; Visit Provider Nurse Practitioner
DX: E21.3 Hyperparathyroidism, unspecified (principal); I27.20 Pulmonary hypertension, unspecified; Z87.891 Personal history of nicotine dependence
CPT/HCPCS: 36415; 82565; 83970; 84439; 84443; 84520

== ENCOUNTER 2022-11-19 11:41 | Outpatient (CLI) | payer OTHER, SELFPAY ==
[2022-11-19] VITALS (8 sets, daily range): BP systolic 114–147; BP diastolic 71–99; PULSE 60–61; RESP 18; TEMP 36.6; O2SAT 98
--- NOTE | 2022-11-19 12:01 | CT_ITS ---
APPROVED REPORT Intern Architect: CLINICAL INDICATION chest pain, evaluate for anomalies TECHNIQUE Image Acquisition: A 128 slice MDCT scanner (Storyvinea View) was used for data acquisition. A noncontrast coronary calcium scan was performed. A CT attenuation threshold of 130 Hounsfield units (HU) was used for the detection of calcium in contiguous voxels of 1 sq mm in area to be counted as individual lesions. Bolus tracking in the ascending aorta with a threshold of 180 HU was performed. Immediately afterwards, ECG synchronized cardiac CT was then performed from the cardiac base to apex using retrospective gating with ECG tube current modulation. A total of 85 mL of Isovue 370 mg/mL contrast medium was administered at 5 mL/sec followed by a saline flush using a biphasic injection protocol. A tube voltage of 120 KVp was used. The patient received the following medications prior to the cardiac CT. 0.8 mg of sublingual nitroglycerin. The average heart rate at the time of acquisition was 60 bpm and V-paced. Image Reconstruction Transaxial images were reconstructed at 0.67 mm slide thickness. Data was reviewed interactively on an advanced workstation capable of 2 and 3-dimensional displays in all conventional reconstruction formats, including multiplanar reformations, maximum intensity projections, curved multiplanar reformations, and volume rendered reconstructions. When applicable, selected routine images describing the relevant coronary anatomy and pathology were saved and sent to PACS. Complications None Technical Quality Overall image quality was good. Coronary artery opacification was adequate. Total DLP (Dose-Length Product) is 1470.0 mGy-cm. The reported value represents the total of one or more individual components during the CT acquisition of this date and at this time, and as such, the same value may appear in more than one CT report depending on the interpreting/reporting physicians. COMPARISON None FINDINGS CT Coronary Calcium Scoring LMA (Left Main Artery) = 0 LAD (Left Anterior Descending) = 0 LCX (Left Coronary Circumflex) = 0 RCA (Right Coronary Artery) = 0 Total Calcium Score = 0 using the AJ-130 method. The interpretation of the calcium heart score is based on the following continuum*: 0 = no calcified plaque detected (risk of coronary artery disease is very low ??? less than 5%) 1-10 = calcium detected in extremely minimal levels (risk of coronary diseases is still low ??? less than 10%) 11-100 = mild levels of plaque detected with certainty (mild or minimal narrowing of heart arteries is likely) 101-400 = definite,at least moderate levels of plaque detected (relatively high risk of a heart attack within 3-5 years) >401-999 = extensive levels of plaque detected (high risk of heart attack, high levels of vascular disease are present, high likelihood of at least one significant coronary narrowing) *The calcium heart score quantifies the burden of coronary calcification/plaque in the coronary arteries. The calcium heart score is not able to evaluate the presence or burden of non-calcified (i.e. soft) plaque. There is no identifiable calcification in the aortic valve, mitral annulus or mitral valve, pericardium, or myocardium. Coronary CT Angiography Coronaries have normal origin and proximal course. The coronary arterial system is right dominant. Note: Stenosis is reported as maximum percentage diameter stenosis. Stenosis grading is reported using the following scheme: Quantitative Stenosis Grading: Left Main (LM): The left main originates normally from the left sinus of Valsalva. The LM bifurcates into the left anterior descending artery and left circumflex artery. The LM is patent with no evidence of a
--- NOTE | 2022-11-19 12:38 | PC.NURSE ---
post Nitro BP 114/71.
--- NOTE | 2022-11-19 12:50 | PC.NURSE ---
Pt to post op to recover, VSS, no C/O at this time.
--- NOTE | 2022-11-19 13:16 | PC.NURSE ---
Pt without C/O, VSS.
== END 2022-11-19 13:18 | disposition home or self-care (01) ==
LOC: RAD 11:41
PROVIDERS: PCP Physician Assistant; Visit Provider Physician Assistant
DX: R06.02 Shortness of breath (principal); R07.9 Chest pain, unspecified; I11.9 Hypertensive heart disease without heart failure
CPT/HCPCS: 75574; Q9967

== ENCOUNTER → 2023-01-05 07:43 | Outpatient (CLI) | payer OTHER, SELFPAY ==
--- NOTE | 2023-01-05 07:44 | FL_ITS ---
FINAL REPORT CLINICAL HISTORY: hernia..chest pain 404.90 dap .55 fluoro time FINDINGS: BARIUM SWALLOW HISTORY: Hiatal hernia seen on CT, chest pain. TECHNIQUE: The patient ingested barium contrast. Spot and overhead films were performed. A total of 35 images were saved. FINDINGS: The esophagus is unremarkable. There is no hiatal hernia identified.There is no gastroesophageal reflux demonstrated. No mucosal defects are seen. Motility appears normal. No changes of esophagitis are evident. 13 mm barium tablet passes easily through the esoophagus and into the stomach. FLUOROSCOPY TIME: 55 seconds Radiation exposure in Total DAP: 404.90 uGym2 IMPRESSION: Unremarkable esophagram. Reviewed, Interpreted and Dictated by Serge Valadez MD Transcribed by Yeimi Neumann PA-C Authenticated and [facility]
== END ==
PROVIDERS: PCP Physician Assistant; Visit Provider Physician Assistant
DX: K44.9 Diaphragmatic hernia without obstruction or gangrene (principal); R07.9 Chest pain, unspecified
CPT/HCPCS: 74220

== ENCOUNTER → 2023-01-06 09:09 | Outpatient (CLI) | payer OTHER, SELFPAY ==
--- NOTE | 2023-01-06 09:14 | XR_ITS ---
FINAL REPORT CLINICAL HISTORY: left knee pain COMPARISON: None FINDINGS: LEFT KNEE: There is no acute fracture or dislocation. There is mild joint space narrowing present. There is no soft tissue abnormality. IMPRESSION: No acute bony abnormality. Reviewed, Interpreted and Dictated by Serge Valadez MD Transcribed by Kianna Ryan Authenticated and [facility]
--- NOTE | 2023-01-06 09:14 | XR_ITS ---
FINAL REPORT CLINICAL HISTORY: former smoker, sob, cough congrestion, Wheezing, chronic chest pain. pacemaker placed junt . COMPARISON: 07/11/2022 FINDINGS: A left subclavian pacer is present. There is no evidence of effusion or other pleural disease. The mediastinum has a normal appearance. Borderline cardiomegaly is noted, stable. IMPRESSION: Borderline cardiomegaly, stable. No acute abnormality identified. Reviewed, Interpreted and Dictated by Serge Valadez MD Transcribed by Kianna Ryan Authenticated and [facility]
--- NOTE | 2023-01-06 09:14 | XR_ITS ---
FINAL REPORT CLINICAL HISTORY: rt hand pain COMPARISON: 12/21/2019 FINDINGS: RIGHT HAND: Three views show no evidence of acute displaced fracture or dislocation of the visualized bony architecture. There is moderate degenerative change in the right hand. Mild generalized osteopenia is present. No bony erosions are visualized. IMPRESSION: Moderate diffuse degenerative change and mild generalized osteopenia. Reviewed, Interpreted and Dictated by Serge Valadez MD Transcribed by Kianna Ryan Authenticated and [facility]
== END ==
PROVIDERS: PCP Physician Assistant; Visit Provider Orthopaedic Surgery
DX: Z01.818 Encounter for other preprocedural examination (principal); M25.562 Pain in left knee; M79.641 Pain in right hand
CPT/HCPCS: 71046; 73130; 73562

== ENCOUNTER 2023-01-08 13:39 | Emergency (ER) | payer OTHER, SELFPAY ==
[2023-01-08 14:10] VITALS: BP 133/82; PULSE 80; RESP 20; TEMP 36.7; O2SAT 98; BMI 26.6
--- NOTE | 2023-01-08 14:46 | EXP.UTC ---
Discharge Plan Disposition Patient Disposition: Home, Self-Care Condition: Good Prescriptions Prescriptions: No Action aspirin [Adult Low Dose Aspirin] 81 mg tablet,delayed release (DR/EC) 81 mg PO DAILY magnesium oxide 400 mg magnesium capsule 400 mg PO DAILY isosorbide mononitrate 60 mg tablet extended release 24 hr 60 mg PO DAILY Qty: 30 3RF omeprazole 40 mg capsule,delayed release(DR/EC) 40 mg PO DAILY Qty: 90 3RF bisoprolol fumarate 5 mg tablet 5 mg PO DAILY verapamil 120 mg tablet 60 mg PO DAILY Qty: 30 3RF nitroglycerin 0.4 mg tablet, sublingual 0.4 mg SUBLINGUAL Q5M PRN (Reason: chest pain) Qty: 100 3RF Rx Instructions: until response; do not exceed 3 doses per event furosemide 20 mg tablet 20 mg PO DAILY PRN (Reason: weight gain) Qty: 90 3RF Repatha SureClick 140 mg/mL pen injector 140 mg SQ Q2W Qty: 6 3RF ropinirole 2 mg tablet See Rx Instructions .ROUTE .COMPLEX Qty: 90 3RF Rx Instructions: TAKE 1 TABLET BY MOUTH EVERY NIGHT AT BEDTIME naproxen sodium [Aleve] 220 mg Capsule 220 mg PO BID PRN (Reason: Pain) fluticasone propionate [Flonase Allergy Relief] 50 mcg/actuation spray,suspension 1 spray NS BID Rx Instructions: administer into each nostril vitamin E (dl, acetate) 1,000 unit capsule 1,000 unit PO DAILY Referrals Follow up/Referrals: Umm Patiño PA [Primary Care Provider] - See instructions Activity Restrictions/Add. Instructions Additional Instructions/Restrictions: Suture instructions: ?You have required stitches today. Please read the following instructions so you know how to care for them: ?1. Keep wound area dry for the first 24 hours. 2?? May clean gently with mild soap and water, after 48 hours to prevent crusting over suture knots. 3. You may shower if your provider gives permission but do not take a bath until the skin is healed.. 4. Never leave a wet dressing or Band-Aid on your stitches as this allows bacteria to reach the area and may cause infection. Band-aids can cause the wound to sweat and not recommended to wear for long periods of time Watch for signs of infection: ? Increasing redness, tenderness or warmth around the suture site ? Unusual swelling around the site ? Appearance of pus around each suture or any red streaks ? Fever If you develop any of the above signs or symptoms of infection, Follow up with Family Physician immediately 5. Suture removal in _7-10___days 6. Return to [facility] or follow up with family doctor for removal. This can be done by any medical provider dur?ing regular hours on Thursday through Thursday, by appointment. Clinical Impressions Clinical Impression: Laceration Instructions Patient Instructions: DI for Laceration Repair, DI for Laceration Repair -- Simple Discharge ED Provider: Jeanette Washburn [facility] [place] General Stated complaint: AO laceration to left middle finger Mode of Arrival: Ambulatory Source of Information: Patient Limitations: No Limitations Time Seen by Provider: 01/08/23 14:10 Description of Symptoms (Recalled from Triage Doc. by RN): PATIENT C/O CUT TO LEFT RING FINGER FROM A SERRATED KNIFE LAST NIGHT HEENT Symptoms (Recalled from RN notes): No Resp Symptoms (Recalled from RN notes): No Skin Symptoms (Recalled from RN notes): Yes MS Symptoms (Recalled from RN notes): No Functional Status (Recalled from RN notes): WNL History of Present Illness Provider Complaint: Patient states that she was trying to cut a bag last night while she was feeding and the knife slipped and cut her left middle finger states that today it was still bleeding and she looked at it and thought it may need stitches so she came in Related Data Home Medications Medication Instructions Recorded Confirmed aspirin 81 mg tablet,delayed 81 mg PO DAILY Blood thinner 09/15/17 01/08/23 release (Adult Low Dose Aspirin) magnesium oxide 400 mg PO
[2023-01-08 14:51] VITALS: BP 133/82; PULSE 80; RESP 20; TEMP 36.7; O2SAT 98
== END 2023-01-08 14:55 | disposition home or self-care (01) ==
PROVIDERS: Emergency Provider Nurse Practitioner; PCP Physician Assistant
DX: S61.213A Laceration without foreign body of left middle finger without damage to nail, initial encounter (principal); I25.10 Atherosclerotic heart disease of native coronary artery without angina pectoris; I11.9 Hypertensive heart disease without heart failure; J45.909 Unspecified asthma, uncomplicated; E78.5 Hyperlipidemia, unspecified; Z87.891 Personal history of nicotine dependence; W26.0XXA Contact with knife, initial encounter
CPT/HCPCS: 12001; 99213; 99214; G0463

== ENCOUNTER → 2023-02-05 13:19 | Outpatient (CLI) | payer OTHER, SELFPAY ==
--- NOTE | 2023-02-05 13:20 | MM_ITS ---
PROCEDURE INFORMATION: Exam: MG Bilateral Screening 3D Mammography Exam date and time: 02/05/2023 1:32 PM Age: 62 years old Clinical indication: Screening mammogram TECHNIQUE: Imaging protocol: Bilateral Screening tomosynthesis and 2D mammography including computer-aided detection (CAD) when performed. COMPARISON: 1. MG MM DIG SCREENING MAMM BI W/CAD 02/03/2022 7:58 AM 2. MG MM DIG SCREENING MAMM BI W/CAD 01/30/2021 10:47 AM 3. MG MM DIG SCREENING MAMM BI W/CAD 01/27/2020 10:56 AM 4. MG MM DIG MAMM DX UNILAT LT CAD 02/08/2019 2:50 PM FINDINGS: MAMMOGRAPHY: Breast composition: There are scattered areas of fibroglandular density. Mass: None. Architectural distortion: No new or suspicious architectural distortion. Calcifications: No new or suspicious calcifications are present Asymmetric density: No new or suspicious asymmetric density is present Skin thickening: None. Axillary adenopathy: None. IMPRESSION: No mammographic evidence of malignancy. Recommend annual screening mammography unless otherwise clinically indicated. ASSESSMENT: BI-RADS category 1: Negative
== END ==
LOC: RAD 13:20
PROVIDERS: PCP Physician Assistant; Visit Provider Physician Assistant
DX: Z12.31 Encounter for screening mammogram for malignant neoplasm of breast (principal)
CPT/HCPCS: 77063; 77067

== ENCOUNTER 2023-09-07 16:43 | Outpatient (CLI) | payer SELFPAY ==
[2023-09-07 18:14] LABS: Anion Gap 12.6 mEq/L (5-15); Blood Urea Nitrogen 21 mg/dl (7-17); Calcium 11.1 mg/dl (8.4-10.2); Carbon Dioxide 26 mmol/L (22.0-30.0); Chloride 104 mmol/L (98-107); Estimated Glomerular Filt Rate 73 ml/min (>60); GFR (African American) 88 ML/MIN (>60); Glucose 74 mg/dl (74-100); Potassium 4.6 mmoL/L (3.5-5.1); Sodium 138 mmol/L (136-145)
[2023-09-07 18:39] LABS: Thyroid Stimulating Hormone 1.85 uIU/mL (0.465-4.68)
[2023-09-07 18:58] LABS: Vitamin B12 503 pg/mL (239-931)
[2023-09-08 16:34] LABS: Intact Parathyroid Hormone 27.1 pg/mL (7.5-53.5)
== END 2023-09-07 23:59 | disposition home or self-care (01) ==
LOC: LAB.DROPOF 16:44
PROVIDERS: PCP Physician Assistant; Visit Provider Physician Assistant
DX: E21.3 Hyperparathyroidism, unspecified (principal); I11.9 Hypertensive heart disease without heart failure
CPT/HCPCS: 80048; 82607; 83970; 84443

== ENCOUNTER 2023-12-10 17:00 | Emergency (ER) | payer SELFPAY ==
--- NOTE | 2023-12-10 17:21 | EXP.UTC ---
Discharge Plan Disposition Patient Disposition: Still a Patient Prescriptions Prescriptions: No Action aspirin [Adult Low Dose Aspirin] 81 mg tablet,delayed release (DR/EC) 81 mg PO DAILY fluticasone propion-salmeterol [Advair Diskus] 250-50 mcg/dose blister with device 1 inh inhalation BID 90 Days Qty: 180 3RF prednisone 20 mg tablet 20 mg PO BID Qty: 10 0RF Rx Instructions: administer with food or milk amoxicillin 875 mg tablet 875 mg PO BID Qty: 20 0RF meclizine 25 mg tablet 25 mg PO TID PRN (Reason: dizziness) Qty: 30 0RF magnesium oxide 400 mg magnesium capsule 400 mg PO DAILY omeprazole 40 mg capsule,delayed release(DR/EC) 40 mg PO DAILY Qty: 90 3RF bisoprolol fumarate 5 mg tablet 5 mg PO DAILY nitroglycerin 0.4 mg tablet, sublingual 0.4 mg SUBLINGUAL Q5M PRN (Reason: chest pain) Qty: 100 3RF Rx Instructions: until response; do not exceed 3 doses per event furosemide 20 mg tablet 20 mg PO DAILY PRN (Reason: weight gain) Qty: 90 3RF Repatha SureClick 140 mg/mL pen injector 140 mg SQ Q2W Qty: 6 3RF ropinirole 2 mg tablet See Rx Instructions .ROUTE .COMPLEX Qty: 90 3RF Rx Instructions: TAKE 1 TABLET BY MOUTH EVERY NIGHT AT BEDTIME verapamil 120 mg tablet 60 mg PO DAILY 90 Days Qty: 45 3RF nitroglycerin 0.2 mg/hr patch 24 hour 1 patch transdermal DAILY Qty: 30 2RF Rx Instructions: allow nitrate-free interval of approx. 10-12 hrs per 24-hour period cefdinir 300 mg capsule 300 mg PO Q12H 10 Days Qty: 20 0RF fexofenadine-pseudoephedrine [Deb-D 24 Hour] 180-240 mg tablet extended release 24 hr 1 tab PO DAILY Qty: 7 0RF naproxen sodium [Aleve] 220 mg Capsule 220 mg PO BID PRN (Reason: Pain) fluticasone propionate [Flonase Allergy Relief] 50 mcg/actuation spray,suspension 1 spray NS BID Rx Instructions: administer into each nostril vitamin E (dl, acetate) 1,000 unit capsule 1,000 unit PO DAILY Referrals Follow up/Referrals: Umm Patiño PA [Primary Care Provider] - See instructions Print Language Print Language: Macedonian Discharge ED Provider: Jordy Downing [facility] [place] General Chief complaint: Head Injury Stated complaint: AO 12/10/23 1515 laceration forehead,BAKER Time Seen by Provider: 12/10/23 17:21 History of Present Illness Provider Complaint: Patient states that she was at home laying in her roberta when a deer head mount that was hanging on the wall behind her about 12 ft up fell and hit her in the left side of her forehead and eye States she doesnt think it knocked her out but it did daze her for a moment and she grabbed paper towels due to her forehead and eyelid bleeding, States she called family to come to her and EMS came out and tried to bandage her head and bring her in but she wouldnt come with EMS and family got there and said they would bring her States she has a bad headache, seeing flashes of light in her left eye and feeling sick at her stomach, has laceration to left side of forehead and thinks she may have a laceration on her eyelid because it keeps bleeding Related Data Home Medications ?Medication ?Instructions ?Recorded ?Confirmed aspirin 81 mg tablet,delayed 81 mg PO DAILY Blood thinner 09/15/17 09/07/23 release (Adult Low Dose Aspirin) magnesium oxide 400 mg PO DAILY heart rate 10/26/18 09/07/23 fluticasone propionate 50 1 spray intranasal BID allergies 11/04/21 09/07/23 mcg/actuation nasal spray,suspension (Flonase Allergy Relief) naproxen sodium 220 mg capsule 220 mg PO BID PRN Pain 11/04/21 09/07/23 (Aleve) vitamin E (dl, acetate) 450 mg 1,000 unit PO DAILY Supplement 11/04/21 09/07/23 (1,000 unit) capsule bisoprolol fumarate 5 mg tablet 5 mg PO DAILY 12/25/22 09/07/23 Previous Rx's ?Medication ?Instructions ?Recorded nitroglycerin 0.4 mg sublingual 0.4 mg sublingual Q5M PRN chest 07/16/21 tablet pain #100 tabs furosemide 20 mg tablet 20 mg PO DAILY PRN weight gain #90 06/10/22 tabs evolocumab 140 mg/mL subcutaneous 140 mg SQ Q2W statin intolerance 08/25/22 pen injector (Repatha SureClick) #6 mL ropinirole 2 mg tablet See Rx Instructions .Route 11/21/22 .COMPLEX . #90 tabs omeprazole 40 mg capsule,delayed 40 mg PO DAILY #90 caps 11/24/22 release fluticasone 250 mcg-salmeterol 50 1 inh inhalation BID 90 days #180 01/09/23 mcg/dose blistr powdr for ea inhalation (Advair Diskus) verapamil 120 mg tablet 60 mg (1/2 x 120 mg) PO DAILY 90 03/06/23 days #45 tabs nitroglycerin 0.2 mg/hr 1 patch transdermal DAILY #30 ea 04/09/23 transdermal 24 hour patch amoxicillin 875 mg tablet 875 mg PO BID #20 tabs 09/07/23 meclizine 25 mg tablet 25 mg PO TID PRN dizziness #30 tabs 09/07/23 prednisone 20 mg tablet 20 mg PO BID #10 tabs 09/07/23 cefdinir 300 mg capsule 300 mg PO Q12H 10 days #20 caps 09/24/23 fexofenadine-pseudoephedrine ER 1 tab PO DAILY #7 tabs 09/24/23 180 mg-240 mg tablet,ext.release 24 hr (Deb-D 24 Hour) Allergies Allergy/AdvReac Type Severity Reaction Status Date / Time tetanus and diphtheria Allergy HIGH FEVER Verified 09/07/23 10:59 toxoids / SWELLING [TETANUS & DIPHTHERIA TOXOIDS] rosuvastatin [From Crestor] AdvReac Severe Muscle Pain Verified 09/07/23 10:59 atorvastatin [From Lipitor] AdvReac Intermediate Muscle Pain Verified 09/07/23 10:59 ezetimibe [From Zetia] AdvReac Mild myalgia Verified 09/07/23 10:59 PFSH PFSH Disclaimer: The information contained in this section may have been updated after the patient was seen, as this information can be updated by other users. Medical History Allergic rhinitis Dyspnea on exertion Bilateral serous otitis media Deviated nasal septum Chronic sinusitis Hyperparathyroidism Coronary artery disease Bradycardia PAC (premature atrial contraction) PVCs (premature ventricular contractions) History of asthma Hx of sinus bradycardia Menopause Skin cancer Statin intolerance HLD (hyperlipidemia) Fibrocystic breast Reviewed mammograms and US SOB (shortness of breath) Chest pain HHD (hypertensive heart disease) Surgical History H/O local excision of skin lesion History of History of radiofrequency ablation procedure for cardiac arrhythmia Family History Father FH: esophageal cancer Other Seizures Social History Smoking Status: Never smoker how long ago did patient quit smokin years second hand exposure: No alcohol intake: former counseling given: No substance use type: denies use current occupational status: disabled Travel in the last 8 weeks: None household members: spouse housing: house lives independently: No marital status: education level: high school current occupational exposures/hazards: No caffeine: Yes do you feel safe at home: Yes victim of physical abuse: No victim of emotional abuse: No victim of sexual abuse: No would you like helpful sources: No ROS Obtained: Yes All systems reviewed & no additional complaints except as documented and Yes Systems reviewed as appropriate & no additional complaints except as documented Constitutional Constitutional: Reports system reviewed and no additional complaints, except as documented, Reports as per HPI and Reports headache(s) Eyes Eyes: Reports system reviewed and no additional complaints, except as documented, Reports sensitivity to light and Reports seeing flashes (in left eye) ENT Ears, Nose, Mouth, and Throat: Denies abnormal hearing and Reports headache(s) Cardiovascular Cardiovascular: Reports system reviewed and no additional complaints, except as documented, Reports as per HPI and Denies syncope Respiratory Respiratory: Reports system reviewed and no additional complaints, except as documented and Reports as per HPI Gastrointestinal Gastrointestingal: Reports system reviewed and no additional complaints, except as documented and as per HPI Integumentary/Breasts Skin/Breast: Reports system reviewed and no additional complaints, except as documented, Reports as per HPI and Reports other (laceration to left side of forehead, abrasion on left eyelid) Comments: bruising to left eye Neurologic Neurologic: Reports system reviewed and no additional complaints, except as documented, Reports as per HPI, Denies abnormal hearing, Denies abnormal movements, Denies abnormal speech, Denies confusion, Reports headache(s), Reports other visual disturbances and Denies syncope Physical Exam General General appearance: alert Head Head exam: other Expanded Head Exam Head exam physical: Present laceration Head image: 1. laceration noted 2. abrasion to eyelid 3. contusion noted Eye Eye exam: Present normal appearance and PERRL Respiratory Respiratory exam: Present normal lung sounds bilaterally; Absent respiratory distress or wheezes Cardiovascular Cardiovascular exam: Present regular rate and normal rhythm Neurological Exam Neurological exam: Present alert and oriented X3 Medical Decision Making Medical Records Screening: Per USPSTF and CDC recommendations, given the prevalence of disease in our region, it is our hospital?s policy to screen for HIV and viral Hepatitis for all patients aged 18 and over and those with ongoing risk factors. Eric Inquiry Pt receiving controlled substance: No Eric was queried for this patient: No Medical Decision Narrative: Gretta byrd fell around 12ft off the wall and struck patient in the left side of face in the forehead and left eye area Patient denies LOC but states that she was dazed States since being struck she has had headache, seeing flashes in her left eye and sick at her stomach Patient has laceration to left side of forehead, abrasion and contusion to left eyelid and around eye area Discussed with patient and due to mechanism of injury recommended transfer to the ED for further treatment and evaluation and she agreed called ED and patient was moved to room 9
--- NOTE | 2023-12-10 17:28 | PC.NURSE ---
Pt arrived to ED from [facility] via wheelchair
--- NOTE | 2023-12-10 17:37 | PC.NURSE ---
Dr. Downing at BS for pt eval
--- NOTE | 2023-12-10 17:39 | CT_ITS ---
PROCEDURE INFORMATION: Exam: CT Cervical Spine Without Contrast Exam date and time: 12/10/2023 5:56 PM Age: 63 years old Clinical indication: Injury or trauma; Other: [place] mount fell onto patient; Other: Pain TECHNIQUE: Imaging protocol: Computed tomography of the cervical spine without contrast. Radiation optimization: All CT scans at this facility use at least one of these dose optimization techniques: automated exposure control; mA and/or kV adjustment per patient size (includes targeted exams where dose is matched to clinical indication); or iterative reconstruction. COMPARISON: CT FACIAL BONES WO CON 12/10/2023 5:54 PM FINDINGS: Bones: Mild nonspecific reversal. Vertebral body height and AP alignment is preserved. Mild degenerative change about the dens. Bilateral facet joint degenerative change. No acute cervical spine fracture. No definite high-grade central canal stenosis within limitations of technique. Lungs: Lung apices are normal. Pleural spaces: No visible pneumothorax. Thyroid: Heterogeneous thyroid. Soft tissues: Unremarkable. IMPRESSION: No acute cervical spine fracture.
--- NOTE | 2023-12-10 17:39 | CT_ITS ---
PROCEDURE INFORMATION: Exam: CT Maxillofacial Without Contrast Exam date and time: 12/10/2023 5:54 PM Age: 63 years old Clinical indication: Injury or trauma; Other: [place] mount fell off wall and struck head; Blunt trauma (contusions or hematomas); Head/scalp; Loss of consciousness not known; Additional info: Trauma L face TECHNIQUE: Imaging protocol: Computed tomography of the face without contrast. Radiation optimization: All CT scans at this facility use at least one of these dose optimization techniques: automated exposure control; mA and/or kV adjustment per patient size (includes targeted exams where dose is matched to clinical indication); or iterative reconstruction. COMPARISON: CT HEAD/BRAIN WO CON 12/10/2023 5:51 PM FINDINGS: Limitations: Limited by artifact arising from metallic dental hardware/dental amalgam. Paranasal sinuses: No air-fluid levels. Orbital cavities: No orbital hemorrhage. Bones: No acute facial bone fracture. No dislocation. Soft tissues: Left supraorbital/frontal scalp soft tissue swelling. IMPRESSION: No acute facial bone fracture.
--- NOTE | 2023-12-10 17:39 | CT_ITS ---
PROCEDURE INFORMATION: Exam: CT Head Without Contrast Exam date and time: 12/10/2023 5:51 PM Age: 63 years old Clinical indication: Injury or trauma; Other: [place] mount fell off wall and struck head; Blunt trauma (contusions or hematomas); Additional info: Anterior trauma TECHNIQUE: Imaging protocol: Computed tomography of the head without contrast. Radiation optimization: All CT scans at this facility use at least one of these dose optimization techniques: automated exposure control; mA and/or kV adjustment per patient size (includes targeted exams where dose is matched to clinical indication); or iterative reconstruction. COMPARISON: NM PARATHYROID 08/05/2022 10:44 AM FINDINGS: Brain: No acute intracranial hemorrhage. No midline shift or significant intracranial mass effect. No cerebral edema. Mild decreased attenuation of the supratentorial white matter is likely secondary to chronic microvascular ischemia. Cerebral ventricles: No hydrocephalus. Paranasal sinuses: Visualized sinuses are unremarkable. No fluid levels. Mastoid air cells: Visualized mastoid air cells are well aerated. Bones: No acute calvarial fracture. Facial bones are better evaluated on dedicated exam. Soft tissues: Left supraorbital/frontal scalp soft tissue injury. IMPRESSION: No acute intracranial abnormality.
--- NOTE | 2023-12-10 17:43 | ED_ITS ---
Discharge Plan Disposition Patient Disposition: Home, Self-Care Prescriptions Prescriptions: No Action aspirin [Adult Low Dose Aspirin] 81 mg tablet,delayed release (DR/EC) 81 mg PO DAILY fluticasone propion-salmeterol [Advair Diskus] 250-50 mcg/dose blister with device 1 inh inhalation BID 90 Days Qty: 180 3RF prednisone 20 mg tablet 20 mg PO BID Qty: 10 0RF Rx Instructions: administer with food or milk amoxicillin 875 mg tablet 875 mg PO BID Qty: 20 0RF meclizine 25 mg tablet 25 mg PO TID PRN (Reason: dizziness) Qty: 30 0RF magnesium oxide 400 mg magnesium capsule 400 mg PO DAILY omeprazole 40 mg capsule,delayed release(DR/EC) 40 mg PO DAILY Qty: 90 3RF bisoprolol fumarate 5 mg tablet 5 mg PO DAILY nitroglycerin 0.4 mg tablet, sublingual 0.4 mg SUBLINGUAL Q5M PRN (Reason: chest pain) Qty: 100 3RF Rx Instructions: until response; do not exceed 3 doses per event furosemide 20 mg tablet 20 mg PO DAILY PRN (Reason: weight gain) Qty: 90 3RF Repatha SureClick 140 mg/mL pen injector 140 mg SQ Q2W Qty: 6 3RF ropinirole 2 mg tablet See Rx Instructions .ROUTE .COMPLEX Qty: 90 3RF Rx Instructions: TAKE 1 TABLET BY MOUTH EVERY NIGHT AT BEDTIME verapamil 120 mg tablet 60 mg PO DAILY 90 Days Qty: 45 3RF nitroglycerin 0.2 mg/hr patch 24 hour 1 patch transdermal DAILY Qty: 30 2RF Rx Instructions: allow nitrate-free interval of approx. 10-12 hrs per 24-hour period cefdinir 300 mg capsule 300 mg PO Q12H 10 Days Qty: 20 0RF fexofenadine-pseudoephedrine [Deb-D 24 Hour] 180-240 mg tablet extended release 24 hr 1 tab PO DAILY Qty: 7 0RF naproxen sodium [Aleve] 220 mg Capsule 220 mg PO BID PRN (Reason: Pain) fluticasone propionate [Flonase Allergy Relief] 50 mcg/actuation spray,suspension 1 spray NS BID Rx Instructions: administer into each nostril vitamin E (dl, acetate) 1,000 unit capsule 1,000 unit PO DAILY Referrals Follow up/Referrals: Umm Patiño PA [Primary Care Provider] - See instructions Activity Restrictions/Add. Instructions Additional Instructions/Restrictions: At this time it was felt you are safe to be discharged home. If new or worsening symptoms please do not hesitate to return the emergency department. Please follow-up with your family doctor in 7 days to see if the stitches are ready to come out. If signs of infection such as pus draining from the wound, spreading redness or swelling please do not hesitate to return the emergency department. The bruising on your face will take weeks to resolve and make it worse before it gets better. Do not submerge your face in water while the stitches are still in, however it is okay to shower. Once the stitches are out for optimal wound healing please use vitamin E lotion and sunblock or order silicone scar tape off of [employer]. Clinical Impressions Clinical Impression: Facial trauma, Face lacerations Print Language Print Language: Thai Discharge ED Provider: Jordy Downing General Adult HPI <Jordy Downing MD - Last Filed: 12/10/23 20:06> General Chief complaint: Head Injury Stated complaint: AO 12/10/23 1515 laceration forehead,BAKER Time Seen by Provider: 12/10/23 17:21 History of Present Illness HPI narrative: Patient is a 63-year-old female who is allergic to Tdap vaccine who presents to the emergency department for evaluation of traumatic injury sustained from blunt trauma. A mounted Bux on a wall fell approximately 12 feet striking the patient in her left face causing trauma to her left face, no loss of consciousness. No other trauma described. She presents here for continued evaluation. Her Tdap is not up-to-date due to her vaccine allergy which is severe with severe swelling. No current visual complaints. Related Data Home Medications ?Medication ?Instructions ?Recorded ?Confirmed aspirin 81 mg tablet,delayed 81 mg PO DAILY Blood thinner 09/15/17 09/07/23 release (Adult Low Dose Aspirin) magnesium oxide 400 mg PO DAILY heart rate 10/26/18 09/07/23 fluticasone propionate 50 1 spray intranasal BID allergies 11/04/21 09/07/23 mcg/actuation nasal spray,suspension (Flonase Allergy Relief) naproxen sodium 220 mg capsule 220 mg PO BID PRN Pain 11/04/21 09/07/23 (Aleve) vitamin E (dl, acetate) 450 mg 1,000 unit PO DAILY Supplement 11/04/21 09/07/23 (1,000 unit) capsule bisoprolol fumarate 5 mg tablet 5 mg PO DAILY 12/25/22 09/07/23 Previous Rx's ?Medication ?Instructions ?Recorded nitroglycerin 0.4 mg sublingual 0.4 mg sublingual Q5M PRN chest 07/16/21 tablet pain #100 tabs furosemide 20 mg tablet 20 mg PO DAILY PRN weight gain #90 06/10/22 tabs evolocumab 140 mg/mL subcutaneous 140 mg SQ Q2W statin intolerance 08/25/22 pen injector (Geremias Butcher) #6 mL ropinirole 2 mg tablet See Rx Instructions .Route 11/21/22 .COMPLEX . #90 tabs omeprazole 40 mg capsule,delayed 40 mg PO DAILY #90 caps 11/24/22 release fluticasone 250 mcg-salmeterol 50 1 inh inhalation BID 90 days #180 01/09/23 mcg/dose blistr powdr for ea inhalation (Advair Diskus) verapamil 120 mg tablet 60 mg (1/2 x 120 mg) PO DAILY 90 03/06/23 days #45 tabs nitroglycerin 0.2 mg/hr 1 patch transdermal DAILY #30 ea 04/09/23 transdermal 24 hour patch amoxicillin 875 mg tablet 875 mg PO BID #20 tabs 09/07/23 meclizine 25 mg tablet 25 mg PO TID PRN dizziness #30 tabs 09/07/23 prednisone 20 mg tablet 20 mg PO BID #10 tabs 09/07/23 cefdinir 300 mg capsule 300 mg PO Q12H 10 days #20 caps 09/24/23 fexofenadine-pseudoephedrine ER 1 tab PO DAILY #7 tabs 09/24/23 180 mg-240 mg tablet,ext.release 24 hr (Deb-D 24 Hour) Allergies Allergy/AdvReac Type Severity Reaction Status Date / Time tetanus and diphtheria Allergy HIGH FEVER Verified 09/07/23 10:59 toxoids / SWELLING [TETANUS & DIPHTHERIA TOXOIDS] rosuvastatin [From Crestor] AdvReac Severe Muscle Pain Verified 09/07/23 10:59 atorvastatin [From Lipitor] AdvReac Intermediate Muscle Pain Verified 09/07/23 10:59 ezetimibe [From Zetia] AdvReac Mild myalgia Verified 09/07/23 10:59 PFSH <Jordy Downing MD - Last Filed: 12/10/23 20:06> PFS Disclaimer: The information contained in this section may have been updated after the patient was seen, as this information can be updated by other users. Medical History Allergic rhinitis Dyspnea on exertion Bilateral serous otitis media Deviated nasal septum Chronic sinusitis Hyperparathyroidism Coronary artery disease Bradycardia PAC (premature atrial contraction) PVCs (premature ventricular contractions) History of asthma Hx of sinus bradycardia Menopause Skin cancer Statin intolerance HLD (hyperlipidemia) Fibrocystic breast Reviewed mammograms and US SOB (shortness of breath) Chest pain HHD (hypertensive heart disease) Surgical History H/O local excision of skin lesion History of History of radiofrequency ablation procedure for cardiac arrhythmia Family History Father FH: esophageal cancer Other Seizures Social History Smoking Status: Never smoker how long ago did patient quit smokin years second hand exposure: No alcohol intake: former counseling given: No substance use type: denies use current occupational status: disabled Travel in the last 8 weeks: None household members: spouse housing: house lives independently: No marital status: education level: high school current occupational exposures/hazards: No caffeine: Yes do you feel safe at home: Yes victim of physical abuse: No victim of emotional abuse: No victim of sexual abuse: No would you like helpful sources: No Other Medical History Have you received the Flu Vaccine for this season: No Have you received the Pneumonia Vaccine: No <Jordy Downing MD - Last Filed: 12/10/23 20:06> ROS Obtained: Yes Systems reviewed as appropriate & no additional complaints except as documented Physical Exam <Jordy Downing MD - Last Filed: 12/10/23 20:06> General General appearance: alert Head Head exam: normocephalic and other (linear vertical oriented laceration over the left forehead that is hemostatic. 3 separate superficial lacerations over the left superior eyelid that do not go through and through. This is hemostatic as well.) Eye Eye exam: Present PERRL and EOMI ENT ENT exam: Present mucous membranes moist Neck Neck exam: Present normal inspection Chest Chest inspection: Present normal inspection and symmetric chest wall rise Respiratory Respiratory exam: Absent respiratory distress Cardiovascular Cardiovascular exam: Present regular rate and normal rhythm Abdominal Exam Abdominal exam: Present soft Extremities Exam Extremities exam: Present normal inspection; Absent tenderness Neurological Exam Neurological exam: Present alert and CN II-XII intact; Absent motor sensory deficit Psychiatric Psychiatric exam: Present normal affect Skin Skin exam: Present warm and dry Medical Decision Making <Jordy Downing MD - Last Filed: 12/10/23 20:06> Medical Records Screening: Per USPSTF and CDC recommendations, given the prevalence of disease in our region, it is our hospital?s policy to screen for HIV and viral Hepatitis for all patients aged 18 and over and those with ongoing risk factors. Eric Inquiry Pt receiving controlled substance: No Vital Signs: 12/10/23 17:44 12/10/23 18:01 12/10/23 18:30 Temperature 97.9 F Temperature Source Oral Pulse Rate 59 L 60 Pulse Rate [Radial] 61 Respiratory Rate 16 Blood Pressure 142/89 H 141/86 H Blood Pressure [Right Arm] 142/96 H Blood Pressure Mean 110 104 Blood Pressure Mean [Right Arm] 111 Blood Pressure Source [Right Arm] Automatic Cuff Blood Pressure Position [Right Arm] Sitting 02 Sat by Pulse Oximetry 99 98 98 Oxygen Delivery Method Room Air Orders (Tests/Meds): ED MEDICATIONS Discontinued Medications Generic Name Dose Route Start Last Admin Trade Name Jack PRN Reason Stop Dose Admin Aspirin 324 mg 12/10/23 18:49 12/10/23 18:52 Aspirin 81mg Chewable Tablet PO 12/10/23 18:50 324 mg ONCE ONE Administration Cocaine HCl 1 ml 12/10/23 17:54 12/10/23 18:31 Cocaine 4% Topical Soln 4ml Bottle TP 12/10/23 17:55 1 ml ONCE ONE Administration Epinephrine HCl 1 mg 12/10/23 17:54 12/10/23 18:31 Epinephrine 1 Mg/Ml Ampul TP 12/10/23 17:55 1 mg ONCE ONE Administration Lidocaine HCl 1 ml 12/10/23 17:54 12/10/23 18:31 Lidocaine 2% Urojet 10ml TP 12/10/23 17:55 1 ml ONCE ONE Administration Lidocaine/Epinephrine 20 ml 12/10/23 19:06 Lidocaine 1% W/Epi 1:100,000 20ml Vial SQ 12/10/23 19:07 ONCE ONE ORDERS Category Date Time Status CT cervical spine wo con Stat Cat Scan 12/10/23 17:[address] facial bones wo con Stat Cat Scan 12/10/23 17:[address] head/brain wo con Stat Cat Scan 12/10/23 17:39 Completed HIV (1&2) Antibody Rapid Stat Lab 12/10/23 17:47 Ordered Hep C Ab with Reflex to RNA Stat Lab 12/10/23 17:47 Ordered Trop I [Troponin I] Stat Lab 12/10/23 18:49 Ordered Troponin I Q3H Lab 12/10/23 22:00 Ordered Troponin I Q3H Lab 12/11/23 01:00 Ordered ECG Data Tracing #1: independently interpreted by me rate is 60, rhythm is paced, axis is normal, no ST elevation in anatomical contiguous leads, QTc 405. Medical Decision Narrative: In summary patient is a 63-year-old female past medical history described above who presents emergency department for evaluation of traumatic injury sustained from a falling mounted deer. Patient is hemodynamically stable nontoxic-appe aring upon arrival, afebrile, obvious facial trauma. C-spine precautions will be initiated. Workup be conducted with noncontrasted CT scan of the head, face, cervical spine. Tdap is not indicated given severe allergy and that chance of tetanus from a amounted to animal is exceptionally low. Wound to undergo primary repair. Noncontrasted CT scan informally visualized by me, no large intracranial hemorrhage. Formal read shows no acute pathology. CT facial bones and cervical spine no acute pathology. C-spine cleared clinically subsequently. Wound underwent primary repair by Biju Yates with good effect. Patient is appropriate for discharge at this time and will follow-up for suture removal. I was consulted by the EDWARD, and we discussed the complexity of the problems being addressed. I approved the treatment and management plan for this patient's care in the emergency department, thus performing a substantive portion of the medical decision making. Jordy Downing MD <CHLOE Eugene - Last Filed: 12/10/23 20:18> Vital Signs: 12/10/23 17:44 12/10/23 18:01 12/10/23 18:30 Temperature 97.9 F Temperature Source Oral Pulse Rate 59 L 60 Pulse Rate [Radial] 61 Respiratory Rate 16 Blood Pressure 142/89 H 141/86 H Blood Pressure [Right Arm] 142/96 H Blood Pressure Mean 110 104 Blood Pressure Mean [Right Arm] 111 Blood Pressure Source [Right Arm] Automatic Cuff Blood Pressure Position [Right Arm] Sitting 02 Sat by Pulse Oximetry 99 98 98 Oxygen Delivery Method Room Air Orders (Tests/Meds): ED MEDICATIONS Discontinued Medications Generic Name Dose Route Start Last Admin Trade Name Frebarry PRN Reason Stop Dose Admin Aspirin 324 mg 12/10/23 18:49 12/10/23 18:52 Aspirin 81mg Chewable Tablet PO 12/10/23 18:50 324 mg ONCE ONE Administration Cocaine HCl 1 ml 12/10/23 17:54 12/10/23 18:31 Cocaine 4% Topical Soln 4ml Bottle TP 12/10/23 17:55 1 ml ONCE ONE Administration Epinephrine HCl 1 mg 12/10/23 17:54 12/10/23 18:31 Epinephrine 1 Mg/Ml Ampul TP 12/10/23 17:55 1 mg ONCE ONE Administration Lidocaine HCl 1 ml 12/10/23 17:54 12/10/23 18:31 Lidocaine 2% Urojet 10ml TP 12/10/23 17:55 1 ml ONCE ONE Administration Lidocaine/Epinephrine 20 ml 12/10/23 19:06 Lidocaine 1% W/Epi 1:100,000 20ml Vial SQ 12/10/23 19:07 ONCE ONE ORDERS Category Date Time Status CT cervical spine wo con Stat Cat Scan 12/10/23 17:[address] facial bones wo con Stat Cat Scan 12/10/23 17:[address] head/brain wo con Stat Cat Scan 12/10/23 17:39 Completed HIV (1&2) Antibody Rapid Stat Lab 12/10/23 17:47 Ordered Hep C Ab with Reflex to RNA Stat Lab 12/10/23 17:47 Ordered Trop I [Troponin I] Stat Lab 12/10/23 18:49 Ordered Troponin I Q3H Lab 12/10/23 22:00 Ordered Troponin I Q3H Lab 12/11/23 01:00 Ordered Medical Decision Narrative: In summary patient is a 63-year-old female past medical history described above who presents emergency department for evaluation of traumatic injury sustained from a falling mounted deer. Patient is hemodynamically stable nontoxic- appearing upon arrival, afebrile, obvious facial trauma. C-spine precautions will be initiated. Workup be conducted with noncontrasted CT scan of the head, face, cervical spine. Tdap is not indicated given severe allergy and that chance of tetanus from a amounted to animal is exceptionally low. Wound to undergo primary repair. Noncontrasted CT scan informally visualized by me, no large intracranial hemorrhage. Formal read shows no acute pathology. CT facial bones and cervical spine no acute pathology. C-spine cleared clinically subsequently. Wound underwent primary repair by Biju Yates with good effect. Patient is appropriate for discharge at this time and will follow-up for suture removal. I was consulted by the EDWARD, and we discussed the complexity of the problems being addressed. I approved the treatment and management plan for this patient's care in the emergency department, thus performing a substantive portion of the medical decision making. Jordy Downing MD Laceration repair performed by myself Biju Yates PA-C, patient actually had 4 lacerations a 3 cm forehead laceration a superior 1/2 cm laceration on the eyelid a middle 2.5 cm laceration on the eyelid and a inferior 0.75 cm laceration on the eyelid. The 3 cm laceration took eleven 6.0 nylon interrupted sutures, the half centimeter took one 6.0 nylon interrupted suture the 2.5 cm middle eyelid laceration took five 6.0 nylon interrupted sutures and the inferior 0.75 cm eyelid laceration took two 6.0 nylon interrupted sutures. Procedures <CHLOE Eugene - Last Filed: 12/10/23 20:18> Laceration Laceration 1: Site: face (Midline forehead vertical orientation) Size (cm): 3 Description: linear Depth: simple, single layer Local Anesthetic: lidocaine 1% and with epi Amount of anesthesia used (mL): 5 Pre-repair: wound explored, irrigated extensively and deep structures intact Skin layer closed with: nylon Size (cm): 6-0 Number of sutures: 11 Technique: simple, interrupted Laceration 2: Site: other (Superior laceration of the left upper eyelid) Side (If applicable): left Size (cm): 0.5 Description: linear Depth: simple, single layer and involves subcutaneous layer Local Anesthetic: lidocaine 1% and with epi Amount of anesthesia used (mL): 1 Pre-repair: wound explored, irrigated extensively and deep structures intact Skin layer closed with: nylon Size (cm): 6-0 Number of sutures: 1 Technique: simple, interrupted Laceration 3: Site: other (Middle laceration of the left upper eyelid) Side (If applicable): left Size (cm): 2.5 Description: linear Depth: simple, single layer Local Anesthetic: lidocaine 1% and with epi Amount of anesthesia used (mL): 5 Pre-repair: wound explored and irrigated extensively Skin layer closed with: nylon Size (cm): 6-0 Number of sutures: 5 Technique: simple, interrupted Laceration 4: Site: other (Inferior left upper eyelid) Side (If applicable): left Size (cm): 0.75 Description: linear Depth: simple, single layer Local Anesthetic: lidocaine 1% and with epi Amount of anesthesia used (mL): 1 Pre-repair: wound explored, irrigated extensively and deep structures intact Skin layer closed with: nylon Size (cm): 6-0 Number of sutures: 2 Technique: simple, interrupted Critical Care <CHLOE Eugene - Last Filed: 12/10/23 20:18> Critical Care Time Critical Care Time: No
[2023-12-10 17:44] VITALS: BP 142/96; PULSE 61; RESP 16; TEMP 36.6; O2SAT 99; BMI 25.7
[2023-12-10 18:01] VITALS: BP 142/89; PULSE 59; O2SAT 98
[2023-12-10 18:30] VITALS: BP 141/86; PULSE 60; O2SAT 98
[2023-12-10] MEDS: EPINEPHrine 1 MG/ML AMPUL TP (18:31)
[2023-12-10] MEDS: LIDOCAINE 2% UROJET 10ML TP (18:31)
[2023-12-10] MEDS: COCAINE 4% TOPICAL SOLN 4ML BOTTLE 1 ML TP (18:31)
--- NOTE | 2023-12-10 18:38 | PC.NURSE ---
ROUNDED ON PT, REPORTS CHEST PAIN. EKG AT THIS TIME
--- NOTE | 2023-12-10 18:42 | ECG_ITS ---
APPROVED REPORT Exam: Resting ECG HR:60 bpm ECG Measurements Heart Rate [address] 189 P 241 QRSd 90 QRS 56 QT 405 T 45 QTc 405 Conclusion ELECTRONIC ATRIAL PACEMAKER NONSPECIFIC ST & T-WAVE ABNORMALITY ABNORMAL RHYTHM ECG Electronically signed by : APRIL LAUREANO, 12/10/2023 23:24:00
[2023-12-10] MEDS: ASPIRIN 81MG CHEWABLE TABLET 324 MG PO (18:52)
[2023-12-10] MEDS: LIDOCAINE 1% W/EPI 1:100,000 20ML VIAL 20 ML SQ (20:33)
[2023-12-10 21:18] LABS: HIV (1&2) Antibody Rapid NONREACTIVE (NONREACTIVE)
[2023-12-10 21:30] LABS: Troponin I < 0.01 ng/ml (0.00-0.034)
--- NOTE | 2023-12-10 21:46 | PC.NURSE ---
contacted lab in regards to Dr. Mcneil adding on a CBC and CMP to the original lab work
[2023-12-10 21:55] LABS: Basophils # 0.1 K/mm3 (0-0.2); Basophils % 1.1 % (0.1-2.0); Eosinophils # 0.1 K/mm3 (0.0-0.4); Eosinophils % 1.8 % (0.1-12.0); Hematocrit 41.7 % (37.0-47.0); Hemoglobin 14.6 g/dL (12.2-16.2); Lymphocytes # 2.2 K/mm3 (0.7-4.5); Lymphocytes % 29.8 % (10-50); Mean Corpuscular HGB Conc 34.9 g/dL (31.8-35.4); Mean Corpuscular Hemoglobin 30.2 pg (27.0-31.2); Mean Corpuscular Volume 86.7 fl (81-99); Mean Platelet Volume 8.2 fl (7.4-10.4); Monocytes # 0.5 K/mm3 (0.1-1.0); Monocytes % 6.9 % (1.7-9.3); Neutrophils # 4.4 K/mm3 (1.8-7.8); Neutrophils % 60.3 % (37.0-80.0); Platelet Count 231 K/mm3 (142-424); Red Blood Count 4.81 M/mm3 (4.20-5.40); Red Cell Distribution Width 13.4 % (11.5-17.5); White Blood Count 7.4 K/mm3 (4.8-10.8)
[2023-12-10 21:56] LABS: Albumin Level 4.3 g/dl (3.5-5.0); Chloride 106 mmol/L (98-107); Sodium 138 mmol/L (136-145)
[2023-12-10 21:59] LABS: Alanine Aminotransferase 23 U/L (12-78); Albumin/Globulin Ratio 1.8 (1.1-1.8); Alkaline Phosphatase 99 U/L (38-126); Aspartate Amino Transferase 30 U/L (14-36); Bilirubin,Total 0.4 mg/dl (0.2-1.3); Blood Urea Nitrogen 22 mg/dl (7-17); Calcium 10.4 mg/dl (8.4-10.2); Carbon Dioxide 21 mmol/L (22.0-30.0); Creatinine Clearance Estimated 63 mL/min (50-200); Estimated Glomerular Filt Rate 73 ml/min (>60); GFR (African American) 88 ML/MIN (>60); Globulin 2.4 g/dL (1.3-3.2); Glucose 104 mg/dl (74-100); Total Protein,Serum 6.7 g/dl (6.3-8.2)
[2023-12-10 22:43] LABS: Troponin I < 0.01 ng/ml (0.00-0.034)
[2023-12-10 22:55] VITALS: BP 149/96; PULSE 67; RESP 18; TEMP 36.5; O2SAT 96
[2023-12-12 05:11] LABS: HCV Ab Non Reactive (Non Reactive)
== END 2023-12-10 22:55 | disposition home or self-care (01) ==
LOC: UTC 17:07 → ER 17:28
PROVIDERS: Emergency Provider Emergency Medicine; PCP Physician Assistant
DX: S01.81XA Laceration without foreign body of other part of head, initial encounter (principal); S09.93XA Unspecified injury of face, initial encounter; R51.9 Headache, unspecified; R11.0 Nausea; H53.19 Other subjective visual disturbances; R07.9 Chest pain, unspecified; W20.8XXA Other cause of strike by thrown, projected or falling object, initial encounter; Y93.9 Activity, unspecified; Y92.9 Unspecified place or not applicable
CPT/HCPCS: 12014; 70450; 70486; 72125; 80053; 84484; 85025; 86803; 87389; 93005; 96372; 99285; J0171

== ENCOUNTER 2024-09-15 11:45 | Emergency (ER) | payer SELFPAY ==
[2024-09-15] VITALS (11 sets, daily range): BP systolic 147–179; BP diastolic 82–128; PULSE 51–67; RESP 13–23; TEMP 36.6–36.9; O2SAT 97–100; BMI 25.7
--- NOTE | 2024-09-15 11:57 | XR_ITS ---
FINAL REPORT TECHNIQUE: Chest PA & Lateral CLINICAL HISTORY: shortness of breath COMPARISON: 01/06/2023 FINDINGS: 2 views of the chest were performed. The heart size is normal. A left-sided pacer is present. The mediastinum is within normal limits. There is no acute cardiopulmonary process. There are no pleural effusions. There is no pneumothorax. The bony thorax appears intact. IMPRESSION: No acute cardiopulmonary process. Reviewed, Interpreted and Dictated by Dixon Dietz MD Transcribed by Nabila Dillard Authenticated and [facility]
--- OUTSIDE RECORDS SUMMARY | 2024-09-15 11:57 | XMS_ITS | Clinical Summary ---
Author Organization [facility] Address [address] [place] [address] Care Team Providers Care Mica Paster Name Role Phone Dilip Goodson MD Primary Care Provider [phone] Allergies Active Allergy Reactions Criticality Noted Date Comments [place] And Derivatives Other (See Comments) Low 02/2015 Sneezing Rosuvastatin 01/03/2019 Atorvastatin 01/03/2019 Tetanus And Diphther. Tox (Pf) 01/03 Medications aspirin 81 mg Tablet, Delayed Release (E.C.) Take 81 mg by mouth daily. Active budesonide-formo terol (SYMBICORT) 160-4.5 mcg/actuation HFA Aerosol Inhaler Take by inhalation 2 times daily. Active furosemide (LASIX) 20 mg tablet Take 20 mg by mouth. Active isosorbide mononitrate (IMDUR) 120 mg CR tablet Take 120 mg by mouth every morning. Active lisinopril (ZESTRIL) 5 mg tablet Take 5 mg by mouth. Active Magnesium 200 mg Tablet Take 400 mg by mouth. Active metoprolol tartrate (LOPRESSOR) 25 mg tablet Take 25 mg by mouth 2 times daily. Active rOPINIRole (REQUIP) 1 mg Tablet Take 1 mg by mouth nightly at bedtime. Active albuterol (VENTOLIN/PROAIR /PROVENTIL HFA) 90 mcg/actuation HFA Aerosol Inhaler Take 2 Puffs by inhalation daily. Active naproxen sodium (Aleve) 220 mg tablet Take 220 mg by mouth 2 times daily as needed for Pain. Active Ranolazine (Ranexa) 1,000 mg Tablet Sustained Release 12 hr Take by mouth. A ctive Active Problems No known active problems Resolved Problems Problem Noted Date Diagnosed Date Resolved Date SOB (shortness of breath) 01/03/2019 Family History Medical History Relation Name Comments Cancer Father Diabetes Mother No Cardiac Family History Neg Hx Relation Name Status Comments Father Alive Mother Alive Social History Tobacco Use Types Packs/Day Years Used Date Smoking Tobacco: Former Smokeless Tobacco: Never Alcohol Use Standard Drinks/Week Comments Not Currently 0 (1 standard drink = 0.6 oz pur e alcohol) Comments Unknown Sex and Gender Information Value Date Recorded Sex Assigned at Not on file Legal Sex Female 10:12 AM EDT Gender Identity Not on file Sexual Orientation Not on file Last Filed Vital Signs Vital Sign Reading Time Taken Comments Blood Pressure 130/100 02/25/2019 1:20 PM EST Pulse 55 02/25/2019 1:20 PM EST Temperature 36.5 C (97.7 F) 02/17/2019 8:24 AM EST Respiratory Rate 16 02/17/2019 12:15 PM EST Oxygen Saturation 100% 02/17/2019 4:15 PM EST Inhaled Oxygen Concentration - - Weight 66.7 kg (147 lb) 02/25/2019 1:20 PM EST Height 162.6 cm (5' 4 ) 02/25/2019 1:20 PM EST Body Mass Index 25.23 02/25/2019 1:20 PM EST Plan of Treatment Health Maintenance Due Date Last Done Comments Cologuard 1962 Colonoscopy 1962 Colorectal Cancer Screening 1962 FIT 1962 Lipid Screening 1980 Tetanus Vaccination (Every 10 Years) 1980 Cervical Cancer Screening 05/13/1983 Hepatitis C Virus (HCV) Screening 05/13/1983 Breast Cancer Screening 2012 Pneumococcal Vaccine: 50+ Years (1 of 1 - PCV) 013 Zoster-RZV(Shingrix) (1 of 2) 2012 COVID-19 Vaccine (1 - 2023- season) 2023 Depression Screening 02/10/2024 Influenza Vaccination (#1) 2024 RSV Vaccines (1 - 1-dose 75+ series) 2037 Insurance Advance Directives For more information, please contact: [phone] * Full Code (Latest Code Status on File) Date Activated Date Inactivated Comments 02/17/2019 11:52 AM No automated c hest compression devices for VAD Patients * Full Code Date Activated Date Inactivated Comments 02/17/2019 8:13 AM 02/17/2019 11:52 AM No automated chest compression devices for VAD Patients Care Teams Mica Paster Relationship Specialty Start Date End Date Dilip Goodson MD [address] [place] [id number] PCP - General Cardiology 12/01/18
--- OUTSIDE RECORDS SUMMARY | 2024-09-15 11:59 | XMS_ITS | Clinical Summary ---
Author Organization [facility] Address [address] [place] [address] Care Team Providers Care Sweat Box Attendant Name Role Phone Angelo West MD Primary Care Provider Immunizations Immunization Administration Dates Next Due Influenza, seasonal, injectable 02/10/2012 Family History Medical History Relation Name Comments Hypercholesterolemia Father Diabetes Mother Hypercholesterolemia Mother Lung disease Other 1 Lung disease Other 2 Relation Name Status Comments Father Mother Other 1 Other 2 Social History Tobacco Use Types Packs/Day Years Used Date Smoking Tobacco: Never Alcohol Use Standard Drinks/Week Comments Yes 0 (1 standard drink = 0.6 oz pur e alcohol) Comments Unknown Sex and Gender Information Value Date Recorded Sex Assigned at Not on file Legal Sex Female 6:11 PM EDT Gender Identity Not on file Sexual Orientation Not on file Last Filed Vital Signs Vital Sign Reading Time Taken Comments Blood Pressure 130/82 02/16/2018 1:17 PM EST Pulse 50 02/16/2018 1:17 PM EST Temperature 36.4 C (97.5 F) 02/16/2018 1:17 PM EST Respiratory Rate 16 02/16/2018 1:17 PM EST Oxygen Saturation - - Inhaled Oxygen Concentration - - Weight 71.2 kg (157 lb 0.2 oz) 02/16/2018 1:17 P M EST Height 162.6 cm (5' 4 ) 02/16/2018 1:17 PM EST Body Mass Index 26.95 02/16/2018 1:17 PM EST Plan of Treatment Not on file Insurance Care Teams Sweat Box Attendant Relationship Specialty Start Date End Date Angelo West MD [address] [place] [address] PCP - General 06/22/20
--- OUTSIDE RECORDS SUMMARY | 2024-09-15 11:59 | XMS_ITS | Clinical Summary ---
Author Organization [facility] Address [address], [address] [place] [address] Care Team Providers Care Financial Planning Analyst Name Role Phone Unavailable Primary Care Provider Unavailabl e Allergies Active Allergy Reactions Criticality Noted Date Comments Tetanus Toxoids 12/31/2011 Medications magnesium oxide (MAG-OX) 400 MG tablet Take 1 tablet by mouth daily. 30 tablet 1 02/23/2012 Active albuterol (PROVENTIL HFA;VENTOLIN HFA) 108 (90 BASE) MCG/ACT inhaler Inhale 2 puffs into the lungs every 6 hours as needed. Active Budesonide-Form oterol Fumarate (SYMBICORT IN) Inhale into the lungs. Active potassium chloride SA (K-DUR;KLOR-CON M) 20 MEQ tablet Take 1 tablet by mouth daily 30 tablet 3 11/03/2014 Active lisinopril (PRINIVIL;ZESTR IL) 5 MG tablet Take 1 tablet by mouth daily 30 tablet 5 11/15/2014 Active diltiazem (CARDIZEM CD) 120 MG ER capsuleIndicati ons:Palpitation s Take 1 capsule by mouth 2 times daily 60 capsule 5 04/13/2015 Active hydrochlorothia zide (HYDRODIURIL) 25 MG tablet Take 1 tablet by mouth daily 30 tablet 6 06/21/2015 Active Active Problems Problem Noted Date Diagnosed Date PVC (premature ventricular contraction) 03/29/19 13 Shortness of breath 03/29/2012 Irregular heart beat 01/09/2012 Bradycardia 01/09/2012 Palpitations 01/09/2012 Family History Medical History Relation Name Comments Cancer Father Diabetes Mother Relation Name Status Comments Father Alive Mother Alive Social History Tobacco Use Types Packs/Day Years Used Date Smoking Tobacco: Former Cigarettes Q uit: 12/30/1981 Alcohol Use Standard Drinks/Week Comments No 0 (1 standard drink = 0.6 oz pur e alcohol) Comments No Sex and Gender Information Value Date Recorded Sex Assigned at Not on file Legal Sex Female 3:08 AM EST Gender Identity Not on file Sexual Orientation Not on file Last Filed Vital Signs Vital Sign Reading Time Taken Comments Blood Pressure 126/82 04/13/2015 9:10 AM EST Pulse 60 04/13/2015 9:10 AM EST Temperature - - Respiratory Rate - - Oxygen Saturation 97% 01/09/2012 8:50 AM EST Inhaled Oxygen Concentration - - Weight 69.9 kg (154 lb) 04/13/2015 9:10 AM EST Height 162.6 cm (5' 4 ) 04/13/2015 9:10 AM EST Body Mass Index 26.43 04/13/2015 9:10 AM EST Plan of Treatment Not on file Insurance
--- NOTE | 2024-09-15 12:00 | ED_ITS ---
<Statement entered by Artis Rao DO - 09/17/24 15:29> I was consulted by the [place], and we discussed the complexity of problems being addressed. I approved the treatment and management plan for this patient's care in the emergency department, thus performing a substantive portion of the medical decision making. Artis Rao DO Discharge Plan Disposition Patient Disposition: Home, Self-Care Condition: Good Prescriptions Prescriptions: New acyclovir 800 mg tablet 800 mg PO 5XDAY 7 Days Qty: 35 0RF No Action aspirin [Adult Low Dose Aspirin] 81 mg tablet,delayed release (DR/EC) 81 mg PO DAILY fluticasone propion-salmeterol [Advair Diskus] 250-50 mcg/dose blister with device 1 inh inhalation BID 90 Days Qty: 180 3RF Repatha SureClick 140 mg/mL pen injector 140 mg SQ Q2W Qty: 6 3RF magnesium oxide 400 mg magnesium capsule 400 mg PO DAILY ropinirole 2 mg tablet 2 mg PO BID Qty: 180 3RF citalopram [Celexa] 10 mg tablet 10 mg PO DAILY Qty: 60 0RF nitroglycerin 0.4 mg tablet, sublingual 0.4 mg SUBLINGUAL Q5M PRN (Reason: chest pain) Qty: 100 3RF Rx Instructions: until response; do not exceed 3 doses per event furosemide 20 mg tablet 20 mg PO DAILY PRN (Reason: weight gain) Qty: 90 3RF nitroglycerin 0.2 mg/hr patch 24 hour 1 patch transdermal DAILY Qty: 30 2RF Rx Instructions: allow nitrate-free interval of approx. 10-12 hrs per 24-hour period fexofenadine-pseudoephedrine [Deb-D 24 Hour] 180-240 mg tablet extended release 24 hr 1 tab PO DAILY Qty: 7 0RF bisoprolol fumarate 5 mg tablet 5 mg PO DAILY Qty: 90 3RF naproxen sodium [Aleve] 220 mg Capsule 220 mg PO BID PRN (Reason: Pain) fluticasone propionate [Flonase Allergy Relief] 50 mcg/actuation spray,suspension 1 spray NS BID Rx Instructions: administer into each nostril vitamin E (dl, acetate) 1,000 unit capsule 1,000 unit PO DAILY Referrals Follow up/Referrals: Provider,Referral, MD [Referring, Medical] - See instructions Activity Restrictions/Add. Instructions Additional Instructions/Restrictions: Please return to the emergency department any worsening signs or symptoms, please follow-up with your PCP and service station attendant in the upcoming days/weeks, please continue take your medication as prescribed, monitor for any worsening of your shingles rash. Clinical Impressions Clinical Impression: Atypical chest pain, Shingles rash Instructions Patient Instructions: DI for Shingles, DI for Atypical Chest Pain Print Language Print Language: Greek Discharge ED Provider: Artis Rao HPI <CHLOE Luu - Last Filed: 09/15/24 15:40> General Chief Complaint: Chest Pain Stated Complaint: soa, rash all over body, Time Seen by Provider: 09/15/24 12:00 Mode of Arrival: Ambulatory Source of Information: Patient Description of Symptoms (Recalled from ER Triage Doc. by RN): pt reports painful rash under r breast, generally isnt feeling well. short of air and chest pain. History of Present Illness HPI narrative: 64-year-old female presents the emergency department with left-sided chest pain that occurred 1 hour ago, lasted for around 30 seconds, and is now subsided, was a 5 or 6 out of 10 when the pain hit , currently pain-free at the bedside, did have some shortness of air shaking , all over, patient tells me that she was headed to a today ., She also noticed a rash on her right breast today that has no other acute symptomatology such as pruritus or pain associated with it, no new lotions detergents, no new shampoos, no environmental exposure, she denies any fever or chills, denies any abdominal pain, no injury or trauma per history, did have some nausea when she had the chest pain, no radiation of the chest pain, denies any constipation diarrhea no urinary type symptomatology, patient is a former smoker, denies any alcohol or drug use, other past medical history is consistent with hypertension, implantable cardiac pacemaker, with frequent PVCs, anxiety/depression, RLS, initial triage vitals unremarkable. Please note that above description of symptoms, in this electronic medical record under categorization of recalled from ER triage doctor by RN are reflective of an initial nursing assessment, however, is not reflective of my full history and physical exam that was personally taken and clarified. Consequentially, this preceding description of symptoms, which may include the patient's categorized chief complaint in the EMR, do not reflect my personal clinical impression, and the ultimate description of history of present illness and patient stated complaints should be deferred to this section of the note. Unless stated otherwise or congruent with this section of the note, additional signs, symptoms, or incongruence should be interpreted as inaccurate with my clinical impression. MD complaint: chest pain Onset (ago): hour(s) Related Data Home Medications ?Medication ?Instructions ?Recorded ?Confirmed aspirin 81 mg tablet,delayed 81 mg PO DAILY Blood thin ner 09/15/17 07/11/24 release (Adult Low Dose Aspirin) magnesium oxide 400 mg PO DAILY heart rate 0 10/26/18 07/11/24 fluticasone propionate 50 1 spray intranasal BID aller gies 11/04/21 07/11/24 mcg/actuation nasal spray,suspension (Flonase Allergy Relief) naproxen sodium 220 mg capsule 220 mg PO BID PRN Pain 11/04/21 07/11/24 (Aleve) vitamin E (dl, acetate) 450 mg 1,000 unit PO DAILY Sup plement 11/04/21 07/11/24 (1,000 unit) capsule Previous Rx's ?Medication ?Instructions ?Recorded nitroglycerin 0.4 mg sublingual 0.4 mg sublingual Q5M PRN chest 07/16/21 tablet pain #100 tabs furosemide 20 mg tablet 20 mg PO DAILY PRN weight ga in #90 06/10/22 tabs fluticasone 250 mcg-salmeterol 50 1 inh inhalation BID 90 days #180 01/09/23 mcg/dose blistr powdr for ea inhalation (Advair Diskus) nitroglycerin 0.2 mg/hr 1 patch transdermal DAILY #3 0 ea 04/09/23 transdermal 24 hour patch fexofenadine-pseudoephedrine ER 1 tab PO DAILY #7 tabs 09/24/23 180 mg-240 mg tablet,ext.release 24 hr (Deb-D 24 Hour) citalopram 10 mg tablet (Celexa) 10 mg PO DAILY #60 ta bs 12/28/23 ropinirole 2 mg tablet 2 mg PO BID . #180 tabs 12/10 10/02 bisoprolol fumarate 5 mg tablet 5 mg PO DAILY #90 tabs 04/29/24 evolocumab 140 mg/mL subcutaneous 140 mg SQ Q2W statin intolerance 07/11/24 pen injector (Repatha Lucilaick) #6 mL acyclovir 800 mg tablet 800 mg PO 5XDAY 7 days #35 t abs 09/15/24 Allergies Allergy/AdvReac Type Severity Reaction Status Date / Time tetanus and diphtheria Allergy HIGH FEVER Verified 07/11/24 10:00 toxoids (TETANUS & / SWELLING DIPHTHERIA TOXOIDS) rosuvastatin (From Crestor) AdvReac Severe Muscle Pain Verified 07/11/24 10:00 atorvastatin (From Lipitor) AdvReac Intermediate Muscle Pain Verified 07/11/24 10:00 ezetimibe (From Zetia) AdvReac Mild myalgia Verified 07/11/24 10:00 PFSH <CHLOE Luu - Last Filed: 09/15/24 15:40> [facility] Disclaimer: The information contained in this section may have been updated after the patient was seen, as this information can be updated by other users. Medical History Allergic rhinitis Dyspnea on exertion Bilateral serous otitis media Deviated nasal septum Chronic sinusitis Hyperparathyroidism Coronary artery disease Bradycardia PAC (premature atrial contraction) PVCs (premature ventricular contractions) History of asthma Hx of sinus bradycardia Menopause Skin cancer Statin intolerance HLD (hyperlipidemia) Fibrocystic breast Reviewed mammograms and US SOB (shortness of breath) Chest pain HHD (hypertensive heart disease) Surgical History H/O local excision of skin lesion History of History of radiofrequency ablation procedure for cardiac arrhythmia Family History Father FH: esophageal cancer Other Seizures Social History Smoking Status: Never smoker how long ago did patient quit smokin years second hand exposure: No alcohol intake: former counseling given: No substance use type: denies use current occupational status: disabled Travel in the last 8 weeks?: None household members: spouse housing: house lives independently: No marital status: education level: high school current occupational exposures/hazards: No caffeine: Yes do you feel safe at home: Yes victim of physical abuse: No victim of emotional abuse: No victim of sexual abuse: No would you like helpful sources: No Have you lived/traveled outside [place] in past 30 days?: No Contact w/someone who lives/traveled outside US past 30 days?: No Exposure to someone with infectious disease in past 14 days?: No Do you have a fever (greater than 100.4 F or 38 C)?: No Have you tested positive for COVID-19?: No Exposed to someone with COVID-19 in past 14 days?: No Do you have a sore throat?: No Do you have a cough?: No Do you have any weakness?: No Do you have any diarrhea?: No Are you experiencing any unusual bleeding?: No Do you have any muscle aches/pain?: No Do you have any abdominal pain?: No Are you experiencing loss of taste or smell?: No Other Medical History Have you received the Flu Vaccine for this season: No Have you received the Pneumonia Vaccine: No <CHLOE Luu - Last Filed: 09/15/24 15:40> ROS Obtained: Yes All systems reviewed & no additional complaints except as documented Physical Exam <CHLOE Luu - Last Filed: 09/15/24 15:40> General General appearance: alert and in no apparent distress Head Head exam: atraumatic and normocephalic Eye Eye exam: Present PERRL and EOMI ENT ENT exam: Present mucous membranes moist Neck Neck exam: Present normal inspection Chest Chest inspection: Present normal inspection and symmetric chest wall rise; Absent tenderness Respiratory Respiratory exam: Present normal lung sounds bilaterally; Absent respiratory distress, wheezes or stridor Cardiovascular Cardiovascular exam: Present regular rate and normal rhythm Abdominal Exam Abdominal exam: Present soft; Absent tenderness, guarding, rebound or rigidity Extremities Exam Extremities exam: Present normal inspection Neurological Exam Neurological exam: Present alert and oriented X3 Psychiatric Psychiatric exam: Present normal affect Skin Skin exam: Present warm, dry and other (Mild nonvesicular area of macular papular, erythema, under the patient's right breast, that is blanchable,) HEART Score <CHLOE Luu - Last Filed: 09/15/24 15:40> HEART Score HEART Score assessment performed?: Yes HEART Score: 2 Critical Care <CHLOE Luu Last Filed: 09/15/24 15:40> Critical Care Time Critical Care Time: No Medical Decision Making <CHLOE Luu - Last Filed: 09/15/24 15:40> Medical Records Medical records reviewed: Yes I reviewed the patient's medical records. Eric Inquiry Pt receiving controlled substance: No Eric was queried for this patient: No Vital Signs Vital Signs: 09/15/24 11:53 09/15/24 12:00 09/15/24 12:30 Temperature 97.8 F Temperature Source Oral Pulse Rate 63 60 Pulse Rate [Right] 67 Respiratory Rate 22 23 22 Blood Pressure 150/95 H 170/95 H Blood Pressure [Right Arm] 179/103 H Blood Pressure Mean [Right Arm] 128 02 Sat by Pulse Oximetry 99 98 99 Oxygen Delivery Method Room Air 09/15/24 13:00 09/15/24 13:15 09/15/24 13:31 Temperature Temperature Source Pulse Rate 61 60 61 Pulse Rate [Right] Respiratory Rate 13 15 Blood Pressure 152/82 H 155/114 H Blood Pressure [Right Arm] Blood Pressure Mean [Right Arm] 02 Sat by Pulse Oximetry 97 100 Oxygen Delivery Method 09/15/24 14:00 09/15/24 14:30 09/15/24 15:00 Temperature Temperature Source Pulse Rate 56 L 51 L 60 Pulse Rate [Right] Respiratory Rate 13 23 14 Blood Pressure 164/94 H 147/128 H Blood Pressure [Right Arm] Blood Pressure Mean [Right Arm] 02 Sat by Pulse Oximetry 97 99 98 Oxygen Delivery Method Lab Data Lab results reviewed: Yes I reviewed the patient's lab results. Labs: Lab Results 09/15/24 11:58: WBC 5.6, RBC 4.81, Hgb 14.1, Hct 41.7, MCV 86.7, MCH 29.3, MCHC 33.8, RDW 13.7, Plt Count 254, MPV 9.8, Neut % (Auto) 53.8, Lymph % (Auto) 35.7, Grady % (Auto) 7.1, Eos % (Auto) 2.1, Baso % (Auto) 1.1, Neut # (Auto) 3.0, Lymph # (Auto) 2.0, Grady # (Auto) 0.4, Eos # (Auto) 0.1, Baso # (Auto) 0.1, D-Dimer 0.92 H, Sodium 138, Potassium 3.7, Chloride 106, Carbon Dioxide 24, Anion Gap 11.7, BUN 13, Creatinine 0.80, Estimated Creat Clear 63, Estimated GFR 73, Est GFR ( Amer) 88, Glucose 98, Calcium 10.1, Magnesium 2.0, Total Bilirubin 0.3, AST 44 H, ALT 40, Alkaline Phosphatase 97, Troponin I < 0.01, NT-Pro-B Natriuret Pep 127 H, Total Protein 7.6, Albumin 4.5, Globulin 3.1, Albumin/Globulin Ratio 1.5 09/15/24 12:09: VBG pH 7.45 H, VBG pCO2 30.7 L, VBG pO2 39.9, VBG HCO3 20.9 L, V BG Total CO2 21.8 L, VBG O2 Saturation 77.8 H, VBG Base Excess -3.1 L, VBG Lactic Acid 2.3 H 09/15/24 14:49: Troponin I < 0.01 09/15/24 11:58 09/15/24 11:58 Response Orders (Tests/Meds): ED MEDICATIONS Discontinued Medications Generic Name Dose Route Start Last Admin Trade Name Freq PRN Reason Stop Dose Admin Iopamidol 80 ml 09/15/24 13:44 Iopamidol-370 (76%);100ml Bottle IV 09/15/24 13:45 ONCE ONE Sodium Chloride 50 ml 09/15/24 13:44 0.9 % Sodium Chloride 50 Ml Vial IV 09/15/24 13:45 ONCE ONE Sodium Chloride 10 ml 09/15/24 13:44 Sodium Chloride 0.9% 10ml Syr (Rad Only) IV 09/15/24 13:45 ONCE ONE ORDERS Category Date Time Status CT angio chest PE protocol Stat Cat Scan 09/15/24 13:13 Completed Chest XR 2 view (NOT portable) [XR chest 2V] Stat Exams 09/15/24 11:57 Completed Complete Blood Count Auto Diff Stat Lab 09/15/24 11:58 Completed Comprehensive Metabolic Panel Stat Lab 09/15/24 11:58 Completed D-Dimer Stat Lab 09/15/24 11:58 Completed Magnesium Stat Lab 09/15/24 11:58 Completed NT Pro Brain Natriuretic Pep. Stat Lab 09/15/24 11:58 Completed Troponin I Q3H Lab 09/15/24 14:49 Completed Troponin I Q3H Lab 09/15/24 18:00 Ordered Troponin I Stat Lab 09/15/24 11:58 Completed VBG [Venous Blood Gas] Stat RT 09/15/24 12:09 Completed MDM Narrative Medical Decision Narrative: 64-year-old female presents the emergency department with chest pain, rash, shortness of air that started today, differential diagnose include but not limited to, panic attack, anxiety reaction, PE, costochondritis, ACS, cardiac arrhythmia, electrolyte disturbance, pneumonia, herpes zoster, irritant contact dermatitis, atopic dermatitis, urticaria among others. I discussed this patient's case with the attending physician Will obtain CBC CMP CXR, EKG, VBG, magnesium level proBNP, troponin, D-dimer, will give 324 mg p.o. aspirin for pain, as well as 4 mg of Zofran for nausea. CBC unremarkable CMP is notable for minimal AST elevation at 44 VBG notable for normal pH, pCO2 is mildly decreased at 30,, bicarb is decreased to 20.9, venous lactic's mildly elevated at 2.3. D-dimer is mildly elevated at 0.92, thus will obtain CTA chest with and without contrast. Troponin is within normal limits at less than 0.01, proBNP is minimally elevated at 27 I reviewed the patient's chest x-ray along with corresponding radiologic report, no acute cardiopulmonary process. I reviewed the patient's CTA chest without contrast PE protocol, no pulmonary embolism or dissection. Repeat troponin is less than 0.01 Reexamination of the patient at approximately 3:30 PM, patient is resting comfortably in bed, she has remained hemodynamically stable without her time in the emergency department, chest pain continues to wax and wane, currently no chest pain, no heart palpitations, otherwise benign exam, I do think the patient has some degree of probable developing herpes zoster virus/rash, overlying her right breast, will treat with acyclovir 800 mg p.o. 5 times daily for 7 days, patient is given strict ED return precautions, patient will return emerged for with any worsening signs or symptoms, follow-up with service station attendant and PCP in the upcoming days/weeks. Continue take all your medication as prescribed. Heart score of 2. <Artis Rao DO - Last Filed: 09/15/24 14:33> Vital Signs Vital Signs: 09/15/24 11:53 09/15/24 12:00 09/15/24 12:30 Temperature 97.8 F Temperature Source Oral Pulse Rate 63 60 Pulse Rate [Right] 67 Respiratory Rate 22 23 22 Blood Pressure 150/95 H 170/95 H Blood Pressure [Right Arm] 179/103 H Blood Pressure Mean [Right Arm] 128 02 Sat by Pulse Oximetry 99 98 99 Oxygen Delivery Method Room Air 09/15/24 13:00 09/15/24 13:15 09/15/24 13:31 Temperature Temperature Source Pulse Rate 61 60 61 Pulse Rate [Right] Respiratory Rate 13 15 Blood Pressure 152/82 H 155/114 H Blood Pressure [Right Arm] Blood Pressure Mean [Right Arm] 02 Sat by Pulse Oximetry 97 100 Oxygen Delivery Method 09/15/24 14:00 09/15/24 14:30 09/15/24 15:00 Temperature Temperature Source Pulse Rate 56 L 51 L 60 Pulse Rate [Right] Respiratory Rate 13 23 14 Blood Pressure 164/94 H 147/128 H Blood Pressure [Right Arm] Blood Pressure Mean [Right Arm] 02 Sat by Pulse Oximetry 97 99 98 Oxygen Delivery Method Lab Data Labs: Lab Results 09/15/24 11:58: WBC 5.6, RBC 4.81, Hgb 14.1, Hct 41.7, MCV 86.7, MCH 29.3, MCHC 33.8, RDW 13.7, Plt Count 254, MPV 9.8, Neut % (Auto) 53.8, Lymph % (Auto) 35.7, Grady % (Auto) 7.1, Eos % (Auto) 2.1, Baso % (Auto) 1.1, Neut # (Auto) 3.0, Lymph # (Auto) 2.0, Grady # (Auto) 0.4, Eos # (Auto) 0.1, Baso # (Auto) 0.1, D-Dimer 0.92 H, Sodium 138, Potassium 3.7, Chloride 106, Carbon Dioxide 24, Anion Gap 11.7, BUN 13, Creatinine 0.80, Estimated Creat Clear 63, Estimated GFR 73, Est GFR ( Amer) 88, Glucose 98, Calcium 10.1, Magnesium 2.0, Total Bilirubin 0.3, AST 44 H, ALT 40, Alkaline Phosphatase 97, Troponin I < 0.01, NT-Pro-B Natriuret Pep 127 H, Total Protein 7.6, Albumin 4.5, Globulin 3.1, Albumin/Globulin Ratio 1.5 09/15/24 12:09: VBG pH 7.45 H, VBG pCO2 30.7 L, VBG pO2 39.9, VBG HCO3 20.9 L, V BG Total CO2 21.8 L, VBG O2 Saturation 77.8 H, VBG Base Excess -3.1 L, VBG Lactic Acid 2.3 H 09/15/24 14:49: Troponin I < 0.01 Response Orders (Tests/Meds): ED MEDICATIONS Discontinued Medications Generic Name Dose Route Start Last Admin Trade Name Jack PRN Reason Stop Dose Admin Iopamidol 80 ml 09/15/24 13:44 Iopamidol-370 (76%);100ml Bottle IV 09/15/24 13:45 ONCE ONE Sodium Chloride 50 ml 09/15/24 13:44 0.9 % Sodium Chloride 50 Ml Vial IV 09/15/24 13:45 ONCE ONE Sodium Chloride 10 ml 09/15/24 13:44 Sodium Chloride 0.9% 10ml Syr (Rad Only) IV 09/15/24 13:45 ONCE ONE ORDERS Category Date Time Status CT angio chest PE protocol Stat Cat Scan 09/15/24 13:13 Completed Chest XR 2 view (NOT portable) [XR chest 2V] Stat Exams 09/15/24 11:57 Completed Complete Blood Count Auto Diff Stat Lab 09/15/24 11:58 Completed Comprehensive Metabolic Panel Stat Lab 09/15/24 11:58 Completed D-Dimer Stat Lab 09/15/24 11:58 Completed Magnesium Stat Lab 09/15/24 11:58 Completed NT Pro Brain Natriuretic Pep. Stat Lab 09/15/24 11:58 Completed Troponin I Q3H Lab 09/15/24 14:49 Completed Troponin I Q3H Lab 09/15/24 18:00 Ordered Troponin I Stat Lab 09/15/24 11:58 Completed VBG [Venous Blood Gas] Stat RT 09/15/24 12:09 Completed ECG Data Tracing #1: Attestation: I reviewed this ECG and interpreted as documented below: ECG Narrative: EKG personally interpreted by me demonstrates an atrially paced rhythm at a rate of 60 bpm, normal axis, no RI prolongation, narrow QRS, no QTc prolongation. No ST elevation or depression. No overt signs of ischemia or arrhythmia.
--- OUTSIDE RECORDS SUMMARY | 2024-09-15 12:00 | XMS_ITS | Encounter Summary ---
Author Organization [facility] Address [address] [place] [address] Care Team Providers Care Cilnical Scientist Name Role Phone Dilip Goodson MD Primary Care Provider [phone] Encounter Details Date Type Department Care Team (Late st Contact Info) Description 01/27/2019 Abstract [facility] Physicians - [facility] [id number] Karen Lyons, RN Social History Tobacco Use Types Packs/Day Years Used Date Smoking Tobacco: Former Smokeless Tobacco: Never Alcohol Use Standard Drinks/Week Comments Not Currently 0 (1 standard drink = 0.6 oz pur e alcohol) Comments Unknown Sex and Gender Information Value Date Recorded Sex Assigned at Not on file Legal Sex Female 10:12 AM EDT Gender Identity Not on file Sexual Orientation Not on file documented as of this encounter Plan of Treatment Not on file documented as of this encounter Visit Diagnoses Not on filedocumented in this encounter Care Teams Cilnical Scientist Relationship Specialty Start Date End Date Dilip Goodson MD [address] [place] [id number] PCP - General Cardiology 12/01/18 documented as of this encounter
--- OUTSIDE RECORDS SUMMARY | 2024-09-15 12:00 | XMS_ITS | Encounter Summary ---
Author Organization [place] [address] Care Team Providers Care Senior Engineer Name Role Phone Angelo West MD Primary Care Provider [phone] Boyd Edge MD Unavailable [phone] Encounter Details Date Type Department Care Team (Late st Contact Info) Description 06/20/2015 Orders Only [facility] [address] [facility] [address] [place] [address] Boyd Edge MD [address] [place], [place] [id number] Social History Tobacco Use Types Packs/Day Years Used Date Smoking Tobacco: Former Cigarettes Q uit: 02/09/1985 Alcohol Use Standard Drinks/Week Comments No 0 (1 standard drink = 0.6 oz pur e alcohol) Comments No Sex and Gender Information Value Date Recorded Sex Assigned at Not on file Legal Sex Female 1:54 PM EDT Gender Identity Not on file Sexual Orientation Not on file documented as of this encounter Plan of Treatment Not on file documented as of this encounter Procedures Procedure Name Priority Date/Time Associated Diagnosis Comments EP LAB RECORDINGS Routine 06/20/2015 7:31 AM EDT documented in this encounter Results * EP LAB RECORDINGS (06/20/2015 7:31 AM EDT) 06/20/2015 7:31 AM EDT us Boyd Edge MD CARDIAC CATH ORDERABLES Final Result [facility] [address] [place] [address] documented in this encounter Visit Diagnoses Not on filedocumented in this encounter Care Teams Senior Engineer Relationship Specialty Start Date End Date Angelo West MD [address] [facility] [address] [facility] [id number] PCP - General Emergency Medicine 05/17/15 Boyd Edge MD [address] [facility] [place] [address] Consulting Physician Internal Medicine - Clinical Cardiac Electrophysiology 07/24/16 documented as of this encounter
--- OUTSIDE RECORDS SUMMARY | 2024-09-15 12:00 | XMS_ITS | Clinical Summary ---
Author Organization [facility] [place] Address [address] [facility] [address] [place] [address] Phone Care Team Providers Care Research Anthropologist Name Role Phone Angelo West MD Primary Care Provider [phone] Boyd Edge MD Unavailable [phone] Allergies Active Allergy Reactions Criticality Noted Date Comments [place] And Derivatives Other (See Comments) Low 02/2015 Sneezing Tetanus Toxoid Medications Magnesium 200 mg Oral Tablet Take 1 Tab by mouth 2 times daily. Active budesonide-formo terol (SYMBICORT) 80-4.5 mcg/actuation Inhl HFA Aerosol Inhaler Inhale 1 Puff into the lungs daily. Active albuterol (PROVENTIL HFA;VENTOLIN HFA) 90 mcg/actuation Inhl HFA Aerosol Inhaler Inhale 2 Puffs into the lungs every 6 hours as needed for Wheezing. Active NAPROXEN SODIUM (ALEVE ORAL) Take by mouth daily as needed. Active amLODIPine (NORVASC) 5 mg Oral Tablet 0 7 Active carvedilol (COREG) 3.125 mg Oral Tablet 0 7 Active citalopram (CELEXA) 20 mg Oral Tablet 0 7 Active clopidogrel (PLAVIX) 75 mg Oral Tablet Take 75 mg by mouth daily. 0 7 Active isosorbide mononitrate (IMDUR) 60 mg Oral Tablet Sustained Release 24 hr 0 7 Active nitroGLYCERIN (NITROSTAT) 0.4 mg SL Tablet, Sublingual place 1 tablet under the tongue as directed 0 7 Active lisinopril (PRINIVIL;ZESTRI L) 5 mg Oral Tablet 0 7 Active RANEXA 1,000 mg Oral Tablet Sustained Release 12 hr 0 7 Active atorvastatin (LIPITOR) 20 mg Oral Tablet Take 20 mg by mouth nightly. Active aspirin 81 mg Oral Tablet, Chewable Take 81 mg by mouth daily. Active montelukast (SINGULAIR) 10 mg Oral Tablet Take 10 mg by mouth every evening. Active FLUTICASONE PROPIONATE (FLONASE NASL) by Nasal route as needed. Active Active Problems Problem Noted Date Diagnosed Date Hyperlipemia Hypokalemia Hypertension Hypomagnesemia Hypercalcemia Asthma Palpitations PVCs (premature ventricular contractions) Overview (07/31/2015): S/p EPS + PVC ablation 06/20/15-Dr. Edge Surgical History Surgery Date Site/Laterality Comments SKIN CANCER EXCISION left cheek and left chest SECTION 1985 ABLATION OF DYSRHYTHMIC FOCUS 06/20/15 s/p EPS + PVC ablation-Dr. Edge Medical History Medical History Date Comments Hyperlipemia Hypokalemia Hypertension Hypomagnesemia Hypercalcemia Asthma Palpitations PVCs (premature ventricular contractions) Shortness of breath Headache Cancer (HCC) 2007 skin removed Family History Medical History Relation Name Comments Cancer Father High Blood Pressure Father Diabetes Mother High Blood Pressure Mother Relation Name Status Comments Father Alive Mother Alive Social History Tobacco Use Types Packs/Day Years Used Date Smoking Tobacco: Former Cigarettes Q uit: 02/09/1985 Tobacco Cessation:Counseling Given: No Alcohol Use Standard Drinks/Week Comments No 0 (1 standard drink = 0.6 oz pur e alcohol) Comments No Sex and Gender Information Value Date Recorded Sex Assigned at Not on file Legal Sex Female 1:54 PM EDT Gender Identity Not on file Sexual Orientation Not on file Obstetrics History Last Filed Vital Signs Vital Sign Reading Time Taken Comments Blood Pressure 130/82 08/15/2016 12:15 PM EDT Pulse 66 08/15/2016 12:15 PM EDT Temperature 36.8 C (98.3 F) 06/20/2015 12:44 PM EDT Respiratory Rate 17 06/20/2015 3:00 PM EDT Oxygen Saturation 98% 08/15/2016 12:15 PM EDT Inhaled Oxygen Concentration - - Weight 68.9 kg (152 lb) 08/15/2016 12:15 PM EDT Height 162.6 cm (5' 4 ) 08/15/2016 12:15 PM EDT Body Mass Index 26.09 08/15/2016 12:15 PM EDT Plan of Treatment Health Maintenance Due Date Last Done Comments Hepatitis C Screening 1980 DTaP/TDaP/Td (1 - Tdap) 1981 Pneumococcal Vaccine 50+ (1 of 2 - PCV) 1981 HPV/Pap Cotest 1992 Cologuard 05/13/2007 FIT 05/13/2007 Sigmoidoscopy 05/13/2007 Virtual Colonography 05/13/2007 Zoster (1 of 2) 2012 Annual Wellness Exam 06/07/2016 06/08/2015 (Postponed) Breast Cancer Screening 06/07/2017 06/08/19 16 (Postponed) Cervical Cancer Screening 06/07/2018 Pap Smear 06/07/2018 06/08/2015 (Postponed) RSV or 60+ (1 - Ris k 60-74 years 1-dose series) 2022 COVID-19 Vaccine (1 - 2023-2 5 season) 2023 Influenza Vaccine (#1) 2024 Colon Cancer Screening 06/07/2025 Colonoscopy 06/07/2025 06/08/2015 (Postponed) Hepatitis B Vaccine Aged Out No longe r eligible based on patient's age to complete this topic Meningococcal B Vaccine Aged Out No l onger eligible based on patient's age to complete this topic Insurance [employer] Member Subscriber Plan / Payer (Ef fective 2015-Present) Name:Emely Nino Relation to Subscriber:Spouse Name:HUMBLE NINO Date of :1962 (Home) Address: [address] [place] [address] Payer ID:[id number] (NAIC) Type:Not on file Address: [address] [place] [phone] [employer] P[employer] Care Teams Research Anthropologist Relationship Specialty Start Date End Date Angelo West MD [address] [facility] [address] [place] [id number] PCP - General Emergency Medicine 05/17/15 Boyd Edge MD [address] [place] [address] [place] [address] Consulting Physician Internal Medicine - Clinical Cardiac Electrophysiology 07/24/16
--- NOTE | 2024-09-15 12:04 | ECG_ITS ---
APPROVED REPORT Exam: Resting ECG HR:60 bpm ECG Measurements Heart Rate 60 AXES PA 169 P 91 QRSd 87 QRS 52 QT 400 T 42 QTc 400 Conclusion Atrial paced rhythm Normal rate Normal axis Normal intervals NO STEMI Electronically signed by : Artis Rao, 09/15/2024 17:29:36
[2024-09-15 12:05] LABS: Hematocrit 41.7 % (37.0-47.0); Hemoglobin 14.1 g/dL (12.2-16.2); Immature Granulocytes % 0.2 %; Mean Corpuscular HGB Conc 33.8 g/dL (31.8-35.4); Mean Corpuscular Hemoglobin 29.3 pg (27.0-31.2); Mean Corpuscular Volume 86.7 fl (81-99); Nucleated Red Blood Cells % 0 %; Platelet Count 254 K/mm3 (142-424); Red Blood Count 4.81 M/mm3 (4.20-5.40); Red Cell Distribution Width-SD 43.4 fL; White Blood Count 5.6 K/mm3 (4.8-10.8)
[2024-09-15 12:14] LABS: VBG HCO3 20.9 mmol/L (23-30); VBG PCO2 30.7 mmol/L (35-51); VBG PH 7.45 mmol/L (7.31-7.41); VBG PO2 39.9 mmol/L (28-40)
[2024-09-15 12:14] LABS: Albumin Level 4.5 g/dl (3.5-5.0); Chloride 106 mmol/L (98-107); Potassium 3.7 mmoL/L (3.5-5.1); Sodium 138 mmol/L (136-145)
[2024-09-15 12:16] LABS: Blood Urea Nitrogen 13 mg/dl (7-17); Creatinine Clearance Estimated 63 mL/min (50-200); Creatinine,Serum 0.80 mg/dl (0.52-1.04); Estimated Glomerular Filt Rate 73 ml/min (>60); GFR (African American) 88 ML/MIN (>60)
[2024-09-15 12:17] LABS: Alanine Aminotransferase 40 U/L (12-78); Albumin/Globulin Ratio 1.5 (1.1-1.8); Alkaline Phosphatase 97 U/L (38-126); Anion Gap 11.7 mEq/L (5-15); Aspartate Amino Transferase 44 U/L (14-36); Bilirubin,Total 0.3 mg/dl (0.2-1.3); Calcium 10.1 mg/dl (8.4-10.2); Carbon Dioxide 24 mmol/L (22.0-30.0); Globulin 3.1 g/dL (1.3-3.2); Glucose 98 mg/dl (74-100); Total Protein,Serum 7.6 g/dl (6.3-8.2)
[2024-09-15 12:17] LABS: Lactate Venous 2.3 mmol/L (0.4-2.0)
[2024-09-15 12:22] LABS: D-Dimer 0.92 ug/mL (0.0-0.5)
[2024-09-15 12:27] LABS: Magnesium 2.0 mg/dl (1.6-2.3)
[2024-09-15 12:29] LABS: Troponin I < 0.01 ng/ml (0.00-0.034)
[2024-09-15 12:37] LABS: NT Pro Brain Natriuretic Pep. 127 pg/mL (0-125)
--- NOTE | 2024-09-15 13:13 | CT_ITS ---
FINAL REPORT TECHNIQUE: The patient was injected with IV contrast. Axial images were obtained through the chest in a PE protocol. 3-D reconstruction images were also performed. Individualized dose reduction techniques using automated exposure control or adjustment of the MA and/or KV according to patient's size were employed. CLINICAL HISTORY: SOA and CP FINDINGS: Mediastinal vasculature is adequately opacified. No pulmonary artery filling defects are identified to suggest PE. There is no aortic dissection. There is no axillary adenopathy. There is no hilar or mediastinal adenopathy. The heart size is normal. Left upper anterior chest wall pacemaker is identified. There is no pericardial or pleural effusion. Limited images of the upper abdomen are unremarkable. No suspicious infiltrate or nodule is identified. IMPRESSION: No pulmonary embolus or dissection. Reviewed, Interpreted and Dictated by Dixon Dietz MD Transcribed by Claire Rogel Authenticated and [facility]
--- NOTE | 2024-09-15 14:53 | PC.NURSE ---
Collected and sent Trop to lab.
[2024-09-15 15:30] LABS: Troponin I < 0.01 ng/ml (0.00-0.034)
[2024-09-15 16:17] LABS: Reflex Lactic Add Lactic Reflex
== END 2024-09-15 15:55 | disposition home or self-care (01) ==
PROVIDERS: Physician Assistant; Emergency Provider Student in an Organized Health Care Education/Training Program; PCP Physician Assistant
DX: R07.89 Other chest pain (principal); B02.9 Zoster without complications; I10 Essential (primary) hypertension; E78.5 Hyperlipidemia, unspecified; Z86.79 Personal history of other diseases of the circulatory system
CPT/HCPCS: 71046; 71275; 80053; 82803; 83735; 83880; 84484; 85025; 85378; 93005; 99285